=== PATIENT | female | born 1995 | race Caucasian/White ===

== ENCOUNTER 2017-10-25 17:04 | Emergency (ER) | payer OTHER, SELFPAY ==
--- NOTE | 2017-10-25 18:09 | EDPHYS ---
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 - Social history:: Smoking status: Patient uses tobacco products, smokes one-half pack cigarettes per day. Vital Signs: 17:23 BP 127 / 97; Pulse 113; Resp 20; Temp 98; Pulse Ox 100% on R/A; Weight 65.32 kg; Height hb 5 ft. 2 in. (157.48 cm); Pain 7/10; 18:49 BP 127 / 80; Pulse 76; Pulse Ox 100% on R/A; ap3 17:23 Body Mass Index 26.34 (65.32 kg, 157.48 cm) hb MDM: 18:08 Patient medically screened. kdr 10/25 18:05 Order name: Fluoresene Opth strip; Complete Time: 18:13 kdr Administered Medications: 18:25 Drug: Gentamicin Ointment 0.3 % 0.5 inches Route: Ophthalmic; Site: both eyes; ae1 Disposition: 10/25/17 18:08 Discharged to Home. Impression: Conjunctivitis. - Condition is Stable. - Discharge Instructions: Bacterial Conjunctivitis, Zhit-nx-Kuby. - Prescriptions for Gentamicin 0.3 % Ophthalmic Drops - instill 2 drops by OPHTHALMIC route every 4 hours Continue to administer drops until the signs and symptoms have resolved for 24 hours; 1 bottle. Tramadol 50 mg Oral Tablet - take 1 tablet by ORAL route every 8 hours as needed; 12 tablet. - Medication Reconciliation Form, Thank You Letter form. - Follow up: Private Physician; When: 2 - 3 days; Reason: If symptoms return, Further diagnostic work-up, Recheck today's complaints, Continuance of care, Re-evaluation by your physician. - Problem is new. - Symptoms are unchanged. Addendum: 11/04/2017 09:52 Addendum: CC: Swelling and itchy eyes for the last few days HPI: The patient states k dr that she has had diffuse swelling and itching to both eyes with some discharge and matting . Addendum: ROS: Const: No fever, chills or weight loss Eyes: no visual changes. She has had the itching, swelling and matting Neck: no pain or injury, CV: no CP or palpitations, Resp: no SOB, cough or congestion, Abd: no n/v/d or pain, Back: no pain or injury, : no pain or bleeding, MS/Ext: no pain, injury, swelling, tingling, Skin: no lacerations, pain, injury, skin turgor good, Neuro: CN grossly intact and no other deficits, Psych: Appropriate for age, Allergy/Immunology: no rashes or other s/s, Endo: no evidence of polyuria, polydipsia, temperature control or other s/s . Addendum: Exam: Const: WDWN WF in NAD, Head/Face: no injury, pain or deformity, Eyes: PERRLA, the sclera are mildly injected but there is currently no matting and no other apparent injury or swelling. ENT: no pain, injury or bleeding, Neck: no pain, injury or deformity, full ROM, Chest/Axilla: No pain, injury or deformity, CV: no rubs, gallops, murmurs, regular rate, Resp: CTAB, regular rate, Abd/GI: soft, NT, BS present in all quads and normal, Back: no injury or deformity, full ROM, MS/Extremity: no injury or deformity, FROM, distal pulses good and equal, Skin: no rashes, ecchymosis skin turgor good, Neuro: CN grossly intact, no other neuro deficits, Psych: appropriate for age, no SI/HI, no depression . Addendum: MDM (Discharge) All VS and nursing notes reviewed. The patient was counseled on the results and need for follow-up. The patient was discharged in stable condition. They were happy with the care they received and the plan for d/c and follow-up. . Signatures: Haseeb Arthur MD MD [facility] Beckie Diaz RN RN hb Chuck, Mehdi, RN RN ae1
--- NOTE | 2017-10-25 18:09 | ER ---
Nurse's Notes [facility] Name: Theresa Martinez Age: 21 yrs Sex: Female : 1995 Arrival Date: 10/25/2017 Time: 17:07 Bed 13 Private MD: Diagnosis: Conjunctivitis Presentation: 10/25 17:22 Presenting complaint: Patient states: Itching, redness, swelling, and pain to bilateral hb eyes x 2 days. Transition of care: patient was not received from another setting of care. Onset of symptoms was October 24, 2017. Care prior to arrival: None. 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 - Social history:: Smoking status: Patient uses tobacco products, smokes one-half pack cigarettes per day. Screenin:09 Abuse screen: Denies threats or abuse. Nutritional screening: No deficits noted. ap3 Tuberculosis screening: No symptoms or risk factors identified. Fall Risk None identified. Assessment: 18:06 General: Appears uncomfortable, Behavior is calm, cooperative. Pain: Complains of pain ap3 in right eye and left eye Pain does not radiate. Pain currently is 9 out of 10 on a pain scale. Pain began 2-3 days ago. Neuro: Level of Consciousness is awake, alert, obeys commands, Oriented to person, place, time, situation. Cardiovascular: Heart tones S1 S2 present Patient's skin is warm and dry. Respiratory: Airway is patent Breath sounds are clear bilaterally. GI: No signs and/or symptoms were reported involving the gastrointestinal system. : No signs and/or symptoms were reported regarding the genitourinary system. EENT: Eyes are tearing on inner aspect of conjuctiva of right eye and inner aspect of conjunctiva of left eye with exudate noted from inner aspect of conjunctiva of left eye abdi eyes red. Reports nasal congestion since 4 days ago. EENT: Reports. Derm: Skin is pink, warm \T\ dry. Musculoskeletal: No signs and/or symptoms reported regarding the musculoskeletal system. Vital Signs: 17:23 BP 127 / 97; Pulse 113; Resp 20; Temp 98; Pulse Ox 100% on R/A; Weight 65.32 kg; Height hb 5 ft. 2 in. (157.48 cm); Pain 7/10; 18:49 BP 127 / 80; Pulse 76; Pulse Ox 100% on R/A; ap3 17:23 Body Mass Index 26.34 (65.32 kg, 157.48 cm) hb ED Course: 17:07 Patient arrived in ED. rg4 17:23 Triage completed. hb 17:23 Haseeb Arthur MD is Attending Physician. kdr 17:23 Arm band placed on right wrist. hb 17:29 Mehdi Woods, RN is Primary Nurse. ae1 18:10 Bed in low position. Call light in reach. Side rails up X 1. Pulse ox on. NIBP on. ap3 18:26 Eye irrigation of both eyes flushed with 15mL sterile water in each eye. Patient ap3 tolerated well. 18:49 No provider procedures requiring assistance completed. ap3 18:50 Patient did not have IV access during this emergency room visit. ap3 Administered Medications: 18:25 Drug: Gentamicin Ointment 0.3 % 0.5 inches Route: Ophthalmic; Site: both eyes; ae1 Outcome: 18:08 Discharge ordered by . kdr 18:49 Discharged to home ambulatory, with significant other. ap3 18:49 Condition: stable 18:49 Discharge instructions given to patient, Instructed on discharge instructions, follow up and referral plans. medication usage, Demonstrated understanding of instructions, Prescriptions given X 2. 18:51 Attestation : I agree with the charting done by Chrissy Mojica, nursing staff development coordinator. . ae1 18:52 Patient left the ED. ae1 Signatures: Haseeb Arthur MD MD [facility] Beckie Diaz RN RN Mehdi Woods, RN RN ae1 Laverne Gatica [facility] Chrissy Mojica Girish
[2017-10-25] MEDS ORDERED: FLUORESCEIN SODIUM 0.6 MG/WRAP ONE (18:17)
[2017-10-25] MEDS ORDERED: TETRACAINE HCL 0.5% 2ML OPTH ONE (18:17)
[2017-10-25] MEDS ORDERED: GENTAMICIN 0.3% OPTH DROP 5ML ONE (18:22)
== END 2017-10-25 18:52 | disposition home or self-care (01) ==
LOC: ER 17:04
DX: H10.9 Unspecified conjunctivitis (principal); F17.210 Nicotine dependence, cigarettes, uncomplicated
CPT/HCPCS: 99284

== ENCOUNTER 2022-07-26 09:09 | Emergency (ER) | payer BC, OTHER ==
--- OUTSIDE RECORDS SUMMARY | 2022-07-26 09:13 | XMS REPORT | Continuity of Care Document ---
:1995 Author Organization [facility] t Address [address] [place] [address] Care Team Providers Name Role Phone 2, Adc Lab Attending Clinician Unavailable Du Romero MD Attending Clinician DU ROMERO Attending Clinician Unavailable Lab, Adc Fam Pob I Attending Clinician Unavailable Betsy Jacobo Attending Clinician BETSY COVARRUBIAS Attending Clinician Unavailable Payers Payer Name Policy Type Policy Number Effective Date Expiration Date Alysia negron [place] [employer] [id number] 2017 HEALTH 00:00:00 Problems Condition Condition Condition Status Onset Resolution Last Treating Co mments Source Name Details Category Date Date Treatment Clinician Date Screen for Screen for Disease Active U nivers STD STD 3-27 ity of ([place] dical d disease) d disease) Br anch BMI BMI Disease Active Univers 28.0-28.9, 28.0-28.9, 3-27 it y of adult adult 00:00: [place] 00 Medical Branch Family Family Disease Active Overview: Univer s history of history of 7-20 Paternal ity of MTHFR MTHFR 00:00: grandmoth [place] deficiency deficiency 00 er Me dical Branch No known No known Disease Unive rs active active ity of problems problems [facility] [place] [facility] Allergies, Adverse Reactions, Alerts Allergy Allergy Status Severity Reaction(s) Onset Inactive Treating Comm ents Source Name Type Date Date Clinician NO KNOWN Drug Active Univers ALLERGIE Class ity of S [facility] [place] [facility] Social History Social Habit Start Date Stop Date Quantity Comments Source History of 2017-09-21 Smoker University of tobacco use 00:00:00 [facility] [place] [facility] Exposure to Not sure University of SARS-CoV-2 [facility] (event) Branch Tobacco use and 2020-12-09 2020-12-09 Never used Universit y of exposure 00:00:00 00:00:00 [facility] [place] [facility] Alcohol intake 2020-12-09 2020-12-09 Current University of 00:00:00 00:00:00 non-drinker of [facility] alcohol Branch (finding) Tobacco Comment 2020-12-09 2020-12-09 quit Universit y of 00:00:00 00:00:00 [facility] [place] [facility] Sex Ass[birth year] At [birth year] Universit y of 00:00:00 00:00:00 [facility] [place] [facility] Smoking Status Start Date Stop Date Source Former smoker 2020-12-09 00:00:00 2020-12-09 00:00:00 [facility] [place] [facility] Current every day 2017-10-22 00:00:00 [facility] smoker [facility] Medications Ordered Filled Start Stop Current Ordering Indication Dosage Frequency Signature Comments Components Source Medication Medication Date Date Medication? Clinician (SIG) Name Name norgestimat Yes [id number] 1{tbl} Take 1 Univers e-ethinyl 7-06 tablet by ity o f estradiol 00:00: mouth [place] [facility] 0.18/0.215/ 0.25 mg-25 mcg tablet norgestimat 2020- No [id number] 1{tbl} Take 1 Univers e-ethinyl 7-06 05-14 tablet by ity of estradiol 00:00: 00:00 mouth [place] (ORTHO 00 :00 daily. [facility], 28,) 0.18/0.215/ 0.25 mg-25 mcg tablet norgestimat 2020- No [id number] 1{tbl} Take 1 Univers e-ethinyl 7-06 05-14 tablet by ity of estradiol 00:00: 00:00 mouth [place] (ORTHO 00 :00 [facility] 0.18/0.215/ 0.25 mg-25 mcg tablet norgestimat 2020- No [id number] 1{tbl} Take 1 Univers e-ethinyl 7-06 05-14 tablet by ity of estradiol 00:00: 00:00 mouth [place] (ORTHO 00 :00 daily. Medical [facility] LO, 28,) 0.18/0.215/ 0.25 mg-25 mcg tablet ibuprofen Yes 600mg Take 1 Unive rs 600 mg 2-12 tablet by ity of tablet 00:00: mouth [place] 00 every 6 Medical (six) Branch hours as needed for Pain (scale 1-3) or Pain (scale 4-6) (Pain). Take with food or milk. ibuprofen 2017-2020- No 600mg Take 1 Univ ers 600 mg 2-12 05-14 tablet by ity of tablet 00:00: 00:00 mouth [place] 00 :00 every 6 Medical (six) Branch hours as needed for Pain (scale 1-3) or Pain (scale 4-6) (Pain). Take with food or milk. ibuprofen 2020- No 600mg Take 1 Univ ers 600 mg 2-12 05-14 tablet by ity of tablet 00:00: 00:00 mouth [place] 00 :00 every 6 Medical (six) Branch hours as needed for Pain (scale 1-3) or Pain (scale 4-6) (Pain). Take with food or milk. ibuprofen 2017-2020- No 600mg Take 1 Univ ers 600 mg 2-12 05-14 tablet by ity of tablet 00:00: 00:00 mouth [place] 00 :00 every 6 Medical (six) Branch hours as needed for Pain (scale 1-3) or Pain (scale 4-6) (Pain). Take with food or milk. No known No Univers medications [facility] Immunizations Ordered Filled Immunization Date Status Comments [facility] e Immunization Name Name Varicella 2017-09-09 Completed [place] of (varivax)(chicken 00:00:00 [place] M edical pox) Branch Varicella 2017-09-09 Completed [facility] (varivax)(chicken 00:00:00 [place] M edical pox) Branch Varicella 2017-09-09 Completed [facility] (varivax)(chicken 00:00:00 [place] M edical pox) Branch Varicella 2017-09-09 Completed [facility] (varivax)(chicken 00:00:00 [place] M [place]ical pox) Branch Varicella 2017-09-09 Completed [facility] (varivax)(chicken 00:00:00 [place] M [place]ical pox) Branch Varicella 2017-09-09 Completed University of (varivax)(chicken 00:00:00 [place] M edical pox) Branch Varicella 2017-09-09 Completed University of (varivax)(chicken 00:00:00 [place] M edical pox) Branch Varicella 2017-09-09 Completed University of (varivax)(chicken 00:00:00 [place] M edical pox) Branch Varicella 2017-09-09 Completed University of (varivax)(chicken 00:00:00 [place] M edical pox) Branch Varicella 2017-09-09 Completed University of (varivax)(chicken 00:00:00 [place] edical pox) Branch TDAP 2017-07-03 Completed University of 00:00:00 [facility] 2017-07-03 Completed University of 00:00:00 [facility] 2017-07-03 Completed University of 00:00:00 [facility] 2017-07-03 Completed University of 00:00:00 [facility] 2017-07-03 Completed University of 00:00:00 [facility] [place] [facility] Vital Signs Vital Name Observation Time Observation Value Comments Source Systolic blood 2020-12-09 20:42:00 117 mm[Hg] Univer sity of pressure [facility] [place] [facility] Diastolic blood 2020-12-09 20:42:00 77 mm[Hg] Unive rsity of [facility] Heart rate 2020-12-09 20:42:00 84 /min [facility] Body temperature 2020-12-09 20:42:00 36.83 [facility] Respiratory rate 2020-12-09 20:42:00 18 /min [facility] Body height 2020-12-09 20:42:00 154.9 cm [facility] Body weight 2020-12-09 20:42:00 51.256 kg [facility] BMI 2020-12-09 20:42:00 21.35 kg/m2 [facility] Procedures Procedure Date / Time Performed Performing Clinician Cl e PAP SMEAR-LIQUID 2020-12-09 21:17:00 Du Romero [facility] Encounters Start End Encounter Admission Attending Care Care Encounter Source Date/Time Date/Time Type Type Clinicians Facility Department ID 2020-12-14 2020-12-14 Medical Office Administrator 2, Adc Lab [facility] [id number] Univers 15:30:22 15:45:22 Visit Du Romeroton [id number] ity bal[place]ina [place] [id number] [place] Profess[place] [phone] Ak dical nal [address] [facility] 2020-12-14 2020-12-14 Outpatient R [facility] [id number] Univers 15:30:00 15:30:00 [facility] 2020-12-09 2020-12-09 Office Ad, [facility] [id number] Univers 15:20:33 16:21:14 [facility] Du [facility] [id number] [phone] Ak dical nal 134 [facility] 2020-12-09 2020-12-09 Outpatient [facility] [id number] Univers 15:30:00 15:30:00 [facility] 2020-11-22 2020-11-22 Outpatient R [facility] [id number] Univers 15:30:00 15:30:00 [facility] 2020-04-10 2020-04-10 Laboratory Lab, [facility] Fam Pob I [facility] [id number] Univers 13:58:37 14:13:39 Only [facility]ish [id number] [id number] [place] as Professio [phone] Ak dical nal [address] [place] [address] 2020-04-10 2020-04-10 [facility] [id number] Univers 14:00:00 14:00:00 [facility] Results This patient has no known results.
--- NOTE | 2022-07-26 10:22 | RAD REPORT ---
EXAM DESCRIPTION: RAD - Chest Pa And Lat (2 Views) - 07/26/2022 10:13 am CLINICAL HISTORY: COUGH COMPARISON: No comparisons FINDINGS: Lines: None. Lungs: No evidence of edema or pneumonia. Pleural: No significant pleural effusions or pneumothorax. Cardiac: The heart size is within normal limits. Mediastinum: Within normal limits. Bones: No acute fractures. Other: None IMPRESSION: No acute cardiopulmonary disease.
[2022-07-26 10:32] LABS: Urine Blood Negative (Negative); Urine Glucose Negative (Negative); Urine Protein 1+ (Negative); Urine Specific Gravity >=1.030 (1.005-1.030); Urine pH 5.5 (5.0-7.0)
[2022-07-26 10:36] LABS: Urine Specific Gravity/Preg >1.030 (1.005-1.030)
[2022-07-26 10:43] LABS: Calcium Oxalate Crystals- Ur Few /HPF (None Seen); Urine Bacteria <20 /HPF (<20); Urine Mucus 4+ /HPF (None Seen); Urine RBC <5 /HPF (None Seen)
[2022-07-26 11:38] LABS: SARS-COV-2 RT PCR NEGATIVE (NEGATIVE)
--- NOTE | 2022-07-26 11:56 | ER ---
Nurse's Notes [facility] Name: Theresa Martinez Age: 26 yrs Sex: Female : 1995 Arrival Date: 07/26/2022 Time: 09:15 Bed DIS2 Private MD: Diagnosis: Cough;Acute pharyngitis, unspecified;UTI/ Urinary tract infection, site not specified Presentation: 07/26 10:21 Chief complaint: Patient states: COUGH, CONGESTION x4 DAYS. Coronavirus screen: bp congestion, cough unrelated to allergies, headache, Client presents with at least one sign or symptom that may indicate coronavirus-19. Standard/surgical mask placed on the client. Ebola Screen: No symptoms or risks identified at this time. Initial Sepsis Screen: Does the patient meet any 2 criteria? No. Patient's initial sepsis screen is negative. Does the patient have a suspected source of infection? No. Patient's initial sepsis screen is negative. Risk Assessment: Do you want to hurt yourself or someone else? Patient reports no desire to harm self or others. Onset of symptoms is unknown. 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 - Social history:: Smoking status: Reported history of juuling and/or vaping. Vital Signs: 10:21 BP 109 / 70; Pulse 75; Resp 18; Temp 98.0; Pulse Ox 100% ; Weight 46.72 kg; Height 5 bp ft. 2 in. (157.48 cm); 10:21 Body Mass Index 18.84 (46.72 kg, 157.48 cm) bp ED Course: 09:15 Patient arrived in ED. am2 09:17 Lm Cote PA is PHCP. cp 09:17 Makenzie Jain MD is Attending Physician. cp 10:15 XRAY Chest Pa And Lat (2 Views) In Process Unspecified. EDMS 10:22 Triage completed. bp 10:22 Arm band placed on. bp 12:20 No provider procedures requiring assistance completed. Patient did not have IV access ss during this emergency room visit. Patient maintains SpO2 saturation greater than 95% on room air. Administered Medications: No medications were administered Outcome: 11:55 Discharge ordered by . zhen 12:20 Discharged to home ambulatory. ss 12:20 Condition: good 12:20 Discharge instructions given to patient, Instructed on discharge instructions, follow up and referral plans. medication usage, Demonstrated understanding of instructions, follow-up care, medications. 12:21 Patient left the ED. ss Signatures: Dispatcher [employer] EDMT Velvet Hall RN RN ss Lm Cote PA PA cp Moreno, Amanda am2 Jac Hargrove, RN RN bp
--- NOTE | 2022-07-26 11:56 | EDPHYS ---
Physician Documentation [facility] Name: Theresa Martinez Age: 26 yrs Sex: Female : 1995 Arrival Date: 07/26/2022 Time: 09:15 Bed DIS2 Private MD: ED Physician Makenzie Jain HPI: 07/26 10:10 This 26 yrs old Female presents to ER via Ambulatory with complaints of Cough, Chest cp Pressure, General Weakness. 10:10 The patient or guardian reports cough, that is intermittent, with no sputum. Onset: The cp symptoms/episode began/occurred 4 day(s) ago. 10:10 Severity of symptoms: in the emergency department the symptoms are unchanged, despite cp home interventions. 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 - Social history:: Smoking status: Reported history of juuling and/or vaping. ROS: 10:15 Constitutional: Positive for chills, Negative for body aches, fever, poor PO intake. cp 10:15 Eyes: Negative for injury, pain, redness, and discharge. cp 10:15 ENT: Positive for rhinorrhea, sore throat, Negative for drainage from ear(s), ear pain, difficulty swallowing, difficulty handling secretions. 10:15 Cardiovascular: Positive for chest pain, with cough. 10:15 Respiratory: Positive for cough, "sounds productive", shortness of breath, Negative for wheezing. 10:15 Abdomen/GI: Negative for abdominal pain, vomiting, diarrhea, constipation. 10:15 Skin: Negative for rash. 10:15 Neuro: Positive for weakness, Negative for altered mental status, headache. 10:15 All other systems are negative. Exam: 10:20 Constitutional: The patient appears in no acute distress, alert, awake, non-toxic, well cp developed, well nourished. 10:20 Head/Face: Normocephalic, atraumatic. cp 10:20 Eyes: Periorbital structures: appear normal, Conjunctiva: normal, no exudate, no injection, Lids and lashes: appear normal, bilaterally. 10:20 ENT: External ear(s): are unremarkable, Nose: is normal, Mouth: Lips: moist, Oral mucosa: moist, Posterior pharynx: Airway: no evidence of obstruction, patent, Tonsils: with erythema, no enlargement, no exudate, swelling, is not appreciated, erythema, that is moderate, exudate, is not appreciated. 10:20 Neck: ROM/movement: is normal, is supple, without pain, no range of motions limitations, no meningismus, Lymph nodes: no appreciated lymphadenopathy. 10:20 Chest/axilla: Inspection: normal. 10:20 Cardiovascular: Rate: normal, Rhythm: regular. 10:20 Respiratory: the patient does not display signs of respiratory distress, Respirations: normal, no use of accessory muscles, no retractions, labored breathing, is not present, Breath sounds: are clear throughout, no decreased breath sounds, no stridor, no wheezing. 10:20 Abdomen/GI: Exam negative for discomfort, distension, guarding, Inspection: abdomen appears normal. 10:20 Back: pain, is absent, ROM is normal. Vital Signs: 10:21 BP 109 / 70; Pulse 75; Resp 18; Temp 98.0; Pulse Ox 100% ; Weight 46.72 kg; Height 5 bp ft. 2 in. (157.48 cm); 10:21 Body Mass Index 18.84 (46.72 kg, 157.48 cm) bp MDM: 10:38 Patient medically screened. cp 11:55 Data reviewed: vital signs, nurses notes, lab test result(s), radiologic studies, plain cp films. 11:55 Test interpretation: by ED physician or midlevel provider: plain radiologic studies. cp Counseling: I had a detailed discussion with the patient and/or guardian regarding: the historical points, exam findings, and any diagnostic results supporting the discharge/admit diagnosis, lab results, radiology results, to return to the emergency department if symptoms worsen or persist or if there are any questions or concerns that arise at home. 07/26 10:04 Order name: COVID-19/FLU A+B/RSV; Complete Time: 11:42 cp 07/26 10:04 Order name: Strep; Complete Time: 11:32 cp 07/26 11:32 Interpretation: Reviewed. 07/26 10:04 Order name: Urine Microscopic Only; Complete Time: 11:12 cp 12/29 11:12 Interpretation: Normal except: MUCUS 4+. 07/26 10:32 Order name: Urine --Ancillary (enter results) kj1 07/26 10:32 Order name: Urine Dipstick-Ancillary; Complete Time: 11:12 EDPA 07/26 11:12 Interpretation: Normal except: UKET Trace; UPROT 1+; UNIT Positive. 07/26 11:15 Order name: Throat Culture EDPA 07/26 10:04 Order name: XRAY Chest Pa And Lat (2 Views); Complete Time: 11:12 cp 07/26 11:12 Interpretation: Report reviewed. 07/26 10:04 Order name: Urine Dipstick-Ancillary (obtain specimen); Complete Time: 11:06 cp Administered Medications: No medications were administered Disposition Summary: 07/26/22 11:55 Discharge Ordered Location: Home cp Problem: new cp Symptoms: have improved cp Condition: Stable cp Diagnosis - Cough cp - Acute pharyngitis, unspecified cp - UTI/ Urinary tract infection, site not specified cp Followup: cp - With: Private Physician - When: 2 - 3 days - Reason: Worsening of condition Discharge Instructions: - Discharge Summary Sheet cp - Pharyngitis cp - Urinary Tract Infection, Adult cp - Cough, Adult cp Forms: - Medication Reconciliation Form cp - Thank You Letter cp - Antibiotic Education cp - Prescription Opioid Use cp - Work release form cp Prescriptions: - Bromfed DM 2-30-10 mg/5 mL Oral syrup - take 10 milliliter by ORAL route every 6 hours; 180 milliliter; Refills: 0, cp Product Selection Permitted - Cephalexin 500 mg Oral Capsule - take 1 capsule by ORAL route every 12 hours for 7 days; 14 capsule; Refills: 0, cp Product Selection Permitted - Ibuprofen 800 mg Oral Tablet - take 0.5 tablet by ORAL route every 8 hours As needed take with food; 30 cp tablet; Refills: 0, Product Selection Permitted Addendum: 07/30/2022 17:35 STAFF ATTESTATION STATEMENT: I was immediately available onsite in the emergency s d2 department for consultation in the care of this patient. I did not see or examine this patient. Makenzie Jain MD. Signatures: Dispatcher [employer] EDPA Lm Cote PA PA cp Peltier, Brian, LUANN RN bp Makenzie Jain MD MD sd2
[2022-07-26 12:28] VITALS: BP 109/70; TEMP 98; O2SAT 100
== END 2022-07-26 12:21 | disposition home or self-care (01) ==
LOC: ER 09:09
DX: R05.9 Cough, unspecified (principal); J02.9 Acute pharyngitis, unspecified; N39.0 Urinary tract infection, site not specified; Z20.822 Contact with and (suspected) exposure to COVID-19
CPT/HCPCS: 87070; 81025; 87081; 0241U; 71046; 99284; 81003; 81015

== ENCOUNTER 2023-05-18 01:13 | Emergency (ER) | payer BC, OTHER, SELFPAY ==
--- OUTSIDE RECORDS SUMMARY | 2023-05-18 01:17 | XMS REPORT | Continuity of Care Document ---
:[address] [facility] t Address [address] [place] [address] [address] [place] [address] Care Team Providers Name Role Phone REGINALDO HORN Primary Care Physician Unavailable AVA KRISHNA Attending Clinician Unavailable Ava Abdul Attending Clinician [phone] Lab, Ang-Rmchp Attending Clinician Unavailable MELISSA SUAREZ Attending Clinician Unavailable Jing eHbert Attending Clinician Melissa Suarez MD Attending Clinician Doctor Unassigned, [place] Attending Clinician Unavailable 2, Adc Lab Attending Clinician Unavailable Tammy Romero MD Attending Clinician TAMMY ROMERO Attending Clinician Unavailable Lab, Adc Fam Pob I Attending Clinician Unavailable Sharla Jacobo Attending Clinician SHARLA COVARRUBIAS Attending Clinician Unavailable MELISSA SUAREZ Admitting Clinician Unavailable Payers Payer Name Policy Type Policy Number Effective Date Expiration Date S jamil [place] OF [place] [id number] 2023 00:00:00 [place] [facility] [id number] 2017 HEALTH 00:00:00 Problems Condition Condition Condition Status Onset Resolution Last Treating Co mments Source Name Details Category Date Date Treatment Clinician Date Abnormal Abnormal Disease Active Overview: Un pamela maternal maternal 04-24 Formattin ity of glucose glucose 00:00: g of this [place] tolerance, tolerance, 00 note Me dical antepartum antepartum might be Branch different from the original. Unable to complete lab (veins roll), will check blood glucose x2 wks and follow up Pending 3hr, repeat at 26-28wks Multiparit Multiparit Disease Active U nivers y y 04-23 ity of 00:00: [place] 00 [facility] Supervisio Supervisio Disease Active U nivers n of n of 04-23 ity of high-risk high-risk 00:[place] [facility] Screen for Screen for Disease Active U nivers STD STD 10-22 ity of (sexually (sexually 00:[place] transmitte transmitte 00 Me dical d disease) d disease) Br anch BMI BMI Disease Active Univers 28.0-28.9, 28.0-28.9, 10-22 it y of adult adult 00:00: [address] Family Family Disease Active Overview: Univer s history of history of 7-20 Paternal ity of MTHFR MTHFR 00:00: grandmoth [place] deficiency deficiency 00 er Me dical Branch No known No known Disease Unive rs active active ity of problems problems [facility] Allergies, Adverse Reactions, Alerts Allergy Allergy Status Severity Reaction(s) Onset Inactive Treating Comm ents Source Name Type Date Date Clinician NO KNOWN Drug Active Univers ALLERGIE Class ity of S [facility] Social History Social Habit Start Date Stop Date Quantity Comments Source ASSERTION 2023-03-27 University of 00:00:00 [facility] History of tobacco 2017-09-21 Cigarette Smoker University of use 00:00:00 [facility] Sexual orientation Univer sity of [facility] Exposure to Not sure University of SARS-CoV-2 (event) [facility] History of Social 2023-04-24 2023-04-24 Univers ity of function 00:00:00 00:00:00 [facility] Alcohol intake 2023-04-24 2023-04-24 Current University of 00:00:00 00:00:00 non-drinker of [place] Medi fausto alcohol Branch (finding) Tobacco use and 2020-12-09 2020-12-09 Smokeless Universit y of exposure 00:00:00 00:00:00 tobacco non-user [facility] dical [place] Tobacco Comment 2020-12-09 2020-12-09 quit Universit y of 00:00:00 00:00:00 [facility] Sex Assigned At [birth year] Universit y of 00:00:00 00:00:00 [facility] Smoking Status Start Date Stop Date Source Ex-smoker 2020-12-09 00:00:00 2020-12-09 00:00:00 Universi ty of [facility] Current every day 2017-10-22 00:00:00 [facility] smoker Medical Branch Medications Ordered Filled Start Stop Current Ordering Indication Dosage Frequency Signature Comments Components Source Medication Medication Date Date Medication? Clinician (SIG) Name Name Blood-Gluco 2022-07 Yes [id number] Check Univers se Meter 0-05 blood ity of (FREESTYLE 00:00: glucose 4x [place] LITE METER) 00 daily Medical Kit Branch lancets 2022-07 Yes [id number] Check Univ ers (FREESTYLE 0-05 glucose 4x ity of LANCETS) 28 00:00: daily [place] gauge Misc Medical Branch blood sugar 2022-07 Yes [id number] Check Univers diagnostic 0-05 blood ity of (FREESTYLE 00:00: glucose 4x [place] LITE 00 daily Medical STRIPS) Branch strip Blood-Gluco 2022-07 Yes [id number] Check Univers se Meter 0-05 blood ity of (FREESTYLE 00:00: glucose 4x [place] LITE METER) 00 daily Medical Kit Branch lancets 2022-07 Yes [id number] Check Univ ers (FREESTYLE 0-05 glucose 4x ity of LANCETS) 28 00:00: daily [place] gauge Misc 00 Medical Branch blood sugar 2022-07 Yes [id number] Check Univers diagnostic 0-05 blood ity of (FREESTYLE 00:00: glucose 4x [place] LITE 00 daily Medical STRIPS) Branch strip Blood-Gluco 2022-07 Yes [id number] Check Univers se Meter 0-05 blood ity of (FREESTYLE 00:00: glucose 4x [place] LITE METER) 00 daily Medical Kit Branch lancets 2022-07 Yes [id number] Check Univ ers (FREESTYLE 0-05 glucose 4x ity of LANCETS) 28 00:00: daily [place] [facility] Medical Branch blood sugar 2022-07 Yes [id number] Check Univers diagnostic 0-05 blood ity of (FREESTYLE 00:00: glucose 4x [place] LITE 00 daily Medical STRIPS) Branch strip Blood-Gluco 2022-07 Yes [id number] Check Univers se Meter 0-05 blood ity of (FREESTYLE 00:00: glucose 4x [place] LITE METER) 00 daily Medical Kit Branch lancets 2022-07 Yes [id number] Check Univ ers (FREESTYLE 0-05 glucose 4x ity of LANCETS) 28 00:00: daily [facility] Medical Branch blood sugar 2022-07 Yes [id number] Check Univers diagnostic 0-05 blood ity of (FREESTYLE 00:00: glucose 4x [place] LITE 00 daily Medical STRIPS) Branch strip Yes [id number] 1{tbl} Take 1 U nivers xbn13-cdmr- 9-26 tablet by ity of folic acid 00:00: mouth in [place] 29 mg iron- 00 the Medical 1 mg per morning. Branch tablet Yes [id number] 1{tbl} Take 1 U nivers wrm89-ujae- 9-26 tablet by ity of folic acid 00:00: mouth in [place] as 29 mg iron- 00 the Medical 1 mg per morning. Branch tablet Yes [id number] 1{tbl} Take 1 U nivers kub78-fzjz- 9-26 tablet by ity of folic acid 00:00: mouth in [place] as 29 mg iron- 00 the Medical 1 mg per morning. Branch tablet Yes [id number] 1{tbl} Take 1 U nivers tgw75-dmmv- 9-26 tablet by ity of folic acid 00:00: mouth in [place] 29 mg iron- 00 the Medical 1 mg per morning. Branch tablet Yes [id number] 1{tbl} Take 1 U nivers auf47-jubs- 9-26 tablet by ity of folic acid 00:00: mouth in [place] 29 mg iron- 00 the Medical 1 mg per morning. Branch tablet Yes [id number] 1{tbl} Take 1 U nivers ldm67-fzaw- 9-26 tablet by ity of folic acid 00:00: mouth in [place] as 29 mg iron- 00 the Medical 1 mg per morning. Branch tablet Yes [id number] 1{tbl} Take 1 U nivers whh62-pzfx- 9-26 tablet by ity of folic acid 00:00: mouth in [place] as 29 mg iron- 00 the Medical 1 mg per morning. Branch tablet Yes [id number] 1{tbl} Take 1 U nivers noe25-ltts- 9-26 tablet by ity of folic acid 00:00: mouth in [place] as 29 mg iron- 00 the Medical 1 mg per morning. Branch tablet Yes [id number] 1{tbl} Take 1 U nivers ssr40-jgbb- 9-26 tablet by ity of folic acid 00:00: mouth in [place] as 29 mg iron- 00 the Medical 1 mg per morning. Branch tablet Yes [id number] 1{tbl} Take 1 U nivers yjs28-sdwk- 9-26 tablet by ity of folic acid 00:00: mouth in [place] as 29 mg iron- 00 the Medical 1 mg per morning. Branch tablet Yes [id number] 1{tbl} Take 1 U nivers qok53-gjop- 9-26 tablet by ity of folic acid 00:00: mouth in [place] as 29 mg iron- 00 the Medical 1 mg per morning. Branch tablet Yes [id number] 1{tbl} Take 1 U nivers gfm57-mavm- 9-26 tablet by ity of folic acid 00:00: mouth in [place] as 29 mg iron- 00 the Medical 1 mg per morning. Branch tablet Yes [id number] 1{tbl} Take 1 U nivers gmw76-xwav- 9-26 tablet by ity of folic acid 00:00: mouth in [place] as 29 mg iron- 00 the Medical 1 mg per morning. Branch tablet Yes [id number] 1{tbl} Take 1 U nivers bcg29-xwxr- 9-26 tablet by ity of folic acid 00:00: mouth in [place] as 29 mg iron- 00 the Medical 1 mg per morning. Branch tablet norgestimat Yes [id number] 1{tbl} Take 1 Univers e-ethinyl 7-06 tablet by ity o f estradiol 00:00: mouth [place] (ORTHO 00 [facility]. [facility] 0.18/0.215/ 0.25 mg-25 mcg tablet norgestimat 2020- No [id number] 1{tbl} Take 1 Univers e-ethinyl 7-06 05-14 tablet by ity of estradiol 00:00: 00:00 mouth [place] (ORTHO 00 :00 daily. [facility], 28,) 0.18/0.215/ 0.25 mg-25 mcg tablet norgestimat 2020- No [id number] 1{tbl} Take 1 Univers e-ethinyl 7-06 05-14 tablet by ity of estradiol 00:00: 00:00 mouth [place] (ORTHO 00 :00 daily. [facility], ,) 0.18/0.215/ 0.25 mg-25 mcg tablet norgestimat 2020- No [id number] 1{tbl} Take 1 Univers e-ethinyl 7-06 05-14 tablet by ity of estradiol 00:00: 00:00 mouth [place] (ORTHO 00 :00 daily. [facility], ,) 0.18/0.215/ 0.25 mg-25 mcg tablet ibuprofen Yes 600mg Take 1 Unive rs 600 mg 2-12 tablet by ity of tablet 00:00: mouth [place] 00 every 6 Medical (six) Branch hours as needed for Pain (scale 1-3) or Pain (scale 4-6) (Pain). Take with food or milk. ibuprofen No 600mg Take 1 Univ ers 600 [...] (Pain). Take with food or milk. ibuprofen 600mg Take 1 Univ ers 600 mg 09-09-14 tablet by ity of tablet 00:00: 00:00 mouth [place] 00 :00 every 6 Medical (six) Branch hours as needed for Pain (scale 1-3) or Pain (scale 4-6) (Pain). Take with food or milk. No known No Univers medications [facility] Immunizations Ordered Filled Date Status Comments Source Immunization Name Immunization Name Varicella 2017-09-09 Completed University of (varivax)(chicken 00:00:00 [...] (varivax)(chicken 00:00:00 [place] M edical pox) Branch TDAP 2017-07-03 Completed University of 00:00:00 [facility] TDAP 2017-07-03 Completed University of 00:00:00 [facility] TDAP 2017-07-03 Completed University of 00:00:00 [facility] TDAP 2017-07-03 Completed University of 00:00:00 [facility] TDAP 2017-07-03 Completed University of 00:00:00 [facility] TDAP Unknown Completed [facility] Varicella Unknown Completed University of (varivax)(chicken [place] M edical pox) Branch Varicella Unknown Completed University of (varivax)(chicken [place] M [place]ical pox) Branch TDAP Unknown Completed [facility] Varicella Unknown Completed University of (varivax)(chicken [place] M [place]ical pox) Branch Varicella Unknown Completed University of (varivax)(chicken [place] M [place]ical pox) Branch TDAP Unknown Completed [facility] Varicella Unknown Completed University of (varivax)(chicken [place] M [place]ical pox) Branch Varicella Unknown Completed University of (varivax)(chicken [place] M [place]ical pox) Branch TDAP Unknown Completed [facility] Varicella Unknown Completed University of (varivax)(chicken [place] M [place]ical pox) Branch Varicella Unknown Completed University of (varivax)(chicken [place] M [place]ical pox) Branch TDAP Unknown Completed [facility] Varicella Unknown Completed University of (varivax)(chicken [place] M [place]ical pox) Branch Varicella Unknown Completed University of (varivax)(chicken [place] M [place]ical pox) Branch TDAP Unknown Completed [facility] Varicella Unknown Completed University of (varivax)(chicken [place] M [place]ical pox) Branch Varicella Unknown Completed University of (varivax)(chicken [place] M [place]ical pox) Branch TDAP Unknown Completed [facility] Varicella Unknown Completed University of (varivax)(chicken [place] M [place]ical pox) Branch Varicella Unknown Completed University of (varivax)(chicken [place] M [place]ical pox) Branch TDAP Unknown Completed [facility] Varicella Unknown Completed University of (varivax)(chicken [place] M [place]ical pox) Branch Varicella Unknown Completed University of (varivax)(chicken [place] M [place]ical pox) Branch TDAP Unknown Completed [facility] Varicella Unknown Completed University of (varivax)(chicken [place] M [place]ical pox) Branch Varicella Unknown Completed University of (varivax)(chicken [place] M [place]ical pox) Branch TDAP Unknown Completed [facility] Varicella Unknown Completed University of (varivax)(chicken [place] M [place]ical pox) Branch Varicella Unknown Completed University of (varivax)(chicken [place] M [place]ical pox) Branch TDAP Unknown Completed [facility] Varicella Unknown Completed University of (varivax)(chicken [place] M [place]ical pox) Branch Varicella Unknown Completed University of (varivax)(chicken [place] M [place]ical pox) Branch TDAP Unknown Completed [facility] Varicella Unknown Completed University of (varivax)(chicken [place] M [place]ical pox) Branch Varicella Unknown Completed University of (varivax)(chicken [place] M [place]ical pox) Branch TDAP Unknown Completed [facility] Varicella Unknown Completed University of (varivax)(chicken [place] M [place]ical pox) Branch Varicella Unknown Completed University of (varivax)(chicken [place] M [place]ical pox) Branch TDAP Unknown Completed [facility] Varicella Unknown Completed University of (varivax)(chicken [place] M [place]ical pox) Branch Varicella Unknown Completed University of (varivax)(chicken [place] M [place]ical pox) Branch TDAP Unknown Completed [facility] Varicella Unknown Completed University of (varivax)(chicken [place] M [place]ical pox) Branch Varicella Unknown Completed University of (varivax)(chicken [place] M edical pox) Branch Vital Signs Vital Name Observation Time Observation Value Comments Source Heart rate 2023-04-25 03:00:00 79 /min [facility] Oxygen saturation in 2023-04-25 03:00:00 100 /min [facility] Arterial blood by [facility] Pulse oximetry Branch Systolic blood 2023-04-25 01:45:00 108 mm[Hg] [facility] Diastolic blood 2023-04-25 01:45:00 74 mm[Hg] [facility] Respiratory rate 2023-04-25 01:45:00 16 /min [facility] Body temperature 2023-04-25 00:05:00 37.22 [facility] Body height 2023-04-25 00:05:00 157.5 cm [facility] Body weight 2023-04-25 00:05:00 47.673 kg [facility] BMI 2023-04-25 00:05:00 19.22 kg/m2 [facility] Systolic blood 2023-04-23 14:14:00 115 mm[Hg] Univer sity [facility] Diastolic blood 2023-04-23 14:14:00 74 mm[Hg] Unive rsity of [facility] Heart rate 2023-04-23 14:14:00 63 /min Universi ty of [facility] Body temperature 2023-04-23 14:14:00 36.89 [place] Univ ersity of [facility] [place] Branch Respiratory rate 2023-04-23 14:14:00 18 /min Univ ersity of [facility] Body height 2023-04-23 14:14:00 154.9 cm Universi ty of [place] [facility] [place] Body weight 2023-04-23 14:14:00 48.353 kg Universi ty of [facility] [place] Branch BMI 2023-04-23 14:14:00 20.14 kg/m2 Universi ty of [facility] Systolic blood 2020-12-09 20:42:00 117 mm[Hg] Univer sity of [facility] Diastolic blood 2020-12-09 20:42:00 77 mm[Hg] Unive rsity of [facility] Heart rate 2020-12-09 20:42:00 84 /min Universi ty of [facility] Body temperature 2020-12-09 20:42:00 36.83 [facility] Respiratory rate 2020-12-09 20:42:00 18 /min [facility] Body height 2020-12-09 20:42:00 154.9 cm Universi ty of [facility] Body weight 2020-12-09 20:42:[address] [facility] BMI 2020-12-09 20:42:00 21.35 kg/m2 Universi ty [facility] Procedures Procedure Date / Time Performing Clinician Source Performed US FIRST 2023-04-25 02:35:00 Melissa Suarez [facility] TRIMESTER LESS THAN 14 Medical B ranch WEEKS WITH TRANSVAGINAL POCT TEST 2023-04-25 00:44:00 Jing Flores [facility] BASIC METABOLIC PANEL 2023-04-25 00:40:00 Melissa Suarez [facility] (NA, K, CL, CO2, Medical Branch GLUCOSE, BUN, CREATININE, CA) TOTAL BETA HCG ASSAY 2023-04-25 00:40:00 Jing Flores [facility] CBC WITH DIFF 2023-04-25 00:40:00 Jing Flores [facility] URINALYSIS 2023-04-25 00:40:00 Jing Flores [facility] CONSENT/REFUSAL FOR 2023-04-24 23:59:01 Doctor Unassigned, No Un [facility] DIAGNOSIS AND TREATMENT [facility] GLUCOSE 1 HOUR POST 2023-04-23 15:28:00 [facility] CBC WITH DIFF 2023-04-23 15:28:00 Ava Krishna [facility] HEPATITIS B SURFACE 2023-04-23 15:28:00 Ava Krishna [facility] ANTIGEN [facility] HB INDIRECT 2023-04-23 15:28:00 Ava Krishna [facility] ANTIGLOBULIN TEST [facility] HIV 1/2 AG-AB WITH 2023-04-23 15:28:00 Ava Krishna [facility] REFLEX [facility] SYPHILIS IGG/IGM 2023-04-23 15:28:00 Ava Krishna [facility] POCT TEST 2023-04-23 14:02:00 Ava Krishna [facility] POCT URINALYSIS W/O 2023-04-23 14:02:00 Ava Krishna [facility] SPECIFIC [facility] ASSIGNMENT OF BENEFITS 2023-04-23 12:57:20 Doctor Unassigned, No [facility] PAP SMEAR-LIQUID 2020-12-09 21:17:00 Tammy Romero [facility] Encounters Start End Encounter Admission Attending Care Care Encounter Source Date/Time Date/Time Type Type Clinicians Facility Department ID 2023-05-21 2023-05-21 Outpatient P PASQUALE KRISHNA RUST [id number] Univers 11:00:00 11:00:00 AVA banks f [facility] 2023-05-03 2023-05-03 Telephone PASQUALE Krishna [id number] Univers 00:00:00 00:00:00 Ava C OFFICE SERVICES CLERK [id number] ity of REGIONAL [id number] [place] as MATERNAL [id number] [facility] CHILD [address] [place] [address] 2023-05-03 2023-05-03 Telephone [facility] [id number] Univers 00:00:00 00:00:00 Ava C OFFICE SERVICES CLERK [id number] ity of REGIONAL [id number] [place] as MATERNAL [phone] [facility] & [address] 2023-05-02 2023-05-02 [facility] [id number] Univers 07:45:00 08:12:40 AVA mora o f [facility] 2023-05-02 2023-05-02 [facility], [facility] 1.2.840. [id number] Univers 07:45:00 08:12:40 Visit Ava Krishna OFFICE SERVICES CLERK [id number] ity of [facility] [id number] [place] as MATERNAL [id number] [address] 2023-05-02 2023-05-02 Telephone [facility] [id number] Univers 00:00:00 00:00:00 Ava C OFFICE SERVICES CLERK [id number] ity of REGIONAL [id number] [place] as MATERNAL [id number] [facility] & [address] 2023-04-24 2023-04-24 Emergency X DANIELA RUST ERT [id number] Univers 19:09:00 22:45:[address] [facility] 2023-04-24 2023-04-24 Emergency Jing Flores [facility] 1.2.840 .[id number] Univers 19:09:00 22:45:00 Melissa Suarez [place] [id number] ity [facility] [id number] [place] [id number] [facility] [address] [place] 2023-04-24 2023-04-24 Telephone [facility] [id number] Univers 00:00:00 00:00:00 Ava C OFFICE SERVICES CLERK [id number] ity of [facility] [id number] [place] as MATERNAL [id number] [facility] & CHILD [address] [place] [address] 2023-04-24 2023-04-24 Telephone [facility] [id number] Univers 00:00:00 00:00:00 Ava C OFFICE SERVICES CLERK [id number] ity of [facility] [id number] [place] as MATERNAL [id number] [facility] & [address] 2023-04-23 2023-04-23 Initial [facility] [id number] Univers 08:30:00 10:08:18 Ava C OFFICE SERVICES CLERK [id number] ity of Visit [facility] [id number] [place] as MATERNAL [id number] [address] 2023-04-23 2023-04-23 [facility] [id number] Univers 08:00:00 08:57:31 AVA mora o f [facility] 2023-04-23 2023-04-23 Orders Doctor YAMILET [id number] Univers 00:00:00 00:00:00 Only Unassigned, HERMANN [id number] ity of [place] [facility] [id number] [place] as [id number] [facility] 009 Branch 2020-12-14 2020-12-14 [employer] 2, Adc Lab [facility] [id number] Univers 15:30:22 15:45:22 Visit Tammy Romero [id number] ity of [employer] [id number] [place] [address] [facility] [id number] [facility] [address] [facility] 2020-12-14 2020-12-14 Outpatient R [facility] [id number] Univers 15:30:00 15:30:00 [facility] 2020-12-09 2020-12-09 Office Ad, [facility] [id number] Univers 15:20:33 16:21:14 Visit Tammy Mara [place] [id number] [facility] [employer] [id number] Michelleio [id number] [facility] [address] [facility] 2020-12-09 2020-12-09 Outpatient R [facility] [id number] Univers 15:30:00 15:30:00 [facility] 2020-11-22 2020-11-22 Outpatient R [facility] [id number] Univers 15:30:00 15:30:00 [facility] 2020-04-10 2020-04-10 Laboratory Lab, Adc Fam Pob I RUST 1.2. [id number] Univers 13:58:37 14:13:39 Only Satish [facility] [id number] ity [facility] [id number] [place] as Professio [id number] [facility] [address] [place] [address] 2020-04-10 2020-04-10 [facility] [id number] Univers 14:00:00 14:00:00 [facility] Results Test Description Test Time Test Comments Results Result Comments Source [facility] 2023-04-25 01:53:41 Test Item Value Reference Range Interpretation Comme nts BETA HCG (test code = 78223.00 See_Comment [Auto mated message] The [id number]) system which ge nerated this result transmit ramos reference range : Non- fe male and male patients: <5 mIU/mL. The reference r aditi was not used to interpr et this result as ander l/abnormal. BRENDAN (test code = BRENDAN) Gestational Age ?Range (mIU/mL) 1-10 ?Weeks ?[id number] Weeks ?[id number] Weeks ?7700-76042196-62 Weeks ?[id number] Biotin has been reported to cause a negative bias, interpret results relative to patient's use of biotin. [facility] WITH [id number] 01:47:15 Test Item Value Reference Range Interpretation Comments WBC (test code = 9.34 See_Comment [Automated 1390-2) message] The sy stem which generated this result transmitted reference range : 4.30 - 11.10 10*3/?L. The reference range was not used to interpret this result as normal/abnormal . RBC (test code = 4.78 See_Comment [Automated 789-8) message] The sy stem which generated this result transmitted reference range : 3.93 - 5.25 10*6/?L. The reference range was not used to interpret this result as normal/abnormal . HGB (test code = 15.1 g/dL 11.6-15.0 H 718-7) HCT (test code = 43.3 % 35.7-45.2 4544-3) MCV (test code = 90.6 fL 80.6-95.5 787-2) MCH (test code = 31.6 pg 25.9-32.8 785-6) MCHC (test code = 34.9 g/dL 31.6-35.1 786-4) RDW-SD (test code = 41.1 fL 39.0-49.9 94583-3) RDW-CV (test code = 12.5 % 12.0-15.5 788-0) PLT (test code = 371 See_Comment H [Automated 777-3) message] The sy stem which generated this result transmitted reference range : 166 - 358 10*3/ ?L. The reference r aditi was not used to interpret this result as normal/abnormal . MPV (test code = 9.2 fL 9.5-12.9 L 05064-7) NRBC/100 WBC (test 0.0 See_Comment [Automat ed code = 8762409644) message] The system which generated this result transmitted reference range : 0.0 - 10.0 /100 WBCs. The refer ence range was not u sed to interpret th is result as normal/abnormal . NRBC x10^3 (test code See_Comment [Auto mated = [id number]) message] The s ystem which generated this result transmitted reference range : 10*3/?L. The reference range was not used to interpret this result as normal/abnormal . GRAN MAT (NEUT) % 48.8 % (test code = 770-8) IMM GRAN % (test code 0.20 % = 2293214921) LYMPH % (test code = 43.9 % 736-9) MONO % (test code = 6.0 % 5905-5) EOS % (test code = 0.6 % 713-8) BASO % (test code = 0.5 % 706-2) GRAN MAT x10^3(ANC) 4.55 10*3/uL 1.88-7.09 (test code = 0106442344) IMM GRAN x10^3 (test 0.00-0.06 code = 3209702079) LYMPH x10^3 (test code 4.10 10*3/uL 1.32-3.29 H = 731-0) MONO x10^3 (test code 0.56 10*3/uL 0.33-0.92 = 742-7) EOS x10^3 (test code = 0.06 10*3/uL 0.03-0.39 711-2) BASO x10^3 (test code 0.05 10*3/uL 0.01-0.07 = 704-7) Lab Interpretation Abnormal (test code = 24384-8) [facility] METABOLIC PANEL (NA, K, CL, CO2, GLUCOSE, BUN, CREATININE, CA)2023-04-25 01:11:25 Test Item Value Reference Range Interpretation Comments NA (test code = 140 mmol/L 135-145 3078841432) K (test code = 3.9 mmol/L 3.5-5.0 5082897318) CL (test code = 103 mmol/L 98-108 8033874039) CO2 TOTAL (test code = 25 mmol/L 23-31 7320739652) AGAP (test code = 12 2-16 4459840663) BUN (test code = 14 mg/dL 7-23 3855449014) GLUCOSE (test code = 95 mg/dL 70-110 2591333359) CREATININE (test code = 0.48 mg/dL 0.50-1.04 L 0633224169) CALCIUM (test code = 9.9 mg/dL 8.6-10.6 4683823731) eGFR (test code = 157.6 mL/min/1.73m2 4876497738) BRENDAN (test code = BRENDAN) Association of Glomerular Filtration Rate (GFR) and Staging of Kidney Disease* + --+ --+ ------+| GFR (mL/min/1.73 m2) ?| With Kidney Damage ?| ?Without Kidney Damage+ --------+ --------+ +| ?>90 ?| ?Stage one ?| ? Normal ?+ ---+ ---+ -------+| ?60-89 ?| ?Stage two ?| ? Decreased GFR ? + --+ --+ ------+| ?30-59 ?| ?Stage three ?| ? Stage three ? + --+ --+ ------+| ?15-29 ?| ?Stage four ? | ? Stage four ?+ ---+ ---+ -------+| ?<15 (or dialysis) ? ?| ?Stage five ? | ? Stage five ?+ ---+ ---+ -------+ *Each stage assumes the associated GFR level has been in effect for at least three months. ?Stages 1 to 5, with or without kidney disease, indicate chronic kidney disease. Notes: Determination of stages one and two (with eGFR >59mL/min/1.73 m2) requires estimation of kidney damage for at least three months as defined by structural or functional abnormalities of the kidney, manifested by either:Pathological abnormalities or Markers of kidney damage (including abnormalities in the composition of the blood or urine or abnormalities in imaging tests). Lab Interpretation Abnormal (test code = 67552-6) [id number]00 Test Item Value Reference Range Interpretation Comments POCT PREG (test code = 1605) Positive On board controls acceptable with C Yes Line (test code = 3574) Lab Interpretation (test code = Normal 82409-0) [facility] [id number] 07:12:23 Test Item Value Reference Range Interpretation Comments GLUC 1 HR (test code = 6305830194) 160 mg/dL 120-170 Lab Interpretation (test code = Normal 59989-6) [facility] W/O SPECIFIC [id number] 14:03:00 Test Item Value Reference Range Interpretation Comments POCT PH U (test code = 3254) 7 mg/dl 5-8 POCT U LEUK EST (test code = 1+ Negative - Negative 3263) POCT U NIT (test code = 3262) neg Negative - Negative POCT U PROT (test code = 3259) trace Negative - Negative POCT U GLU (test code = 3256) neg Negative - Negative POCT U KETONE (test code = 3258) net Negative - Negative POCT U BLD (test code = 3257) neg Negative - Negative [facility] [id number] 14:02:00 Test Item Value Reference Range Interpretation Comments POCT PREG (test code = 1605) Positive On board controls acceptable with C Yes Line (test code = 3574) POCT PREG LOT # (test code = 3575) POCT PREG TEST DATE (test code = 3576) [facility]"
[2023-05-18] MEDS ORDERED: FAMOTIDINE 20 MG/2 ML VIAL IV ONE (01:56)
[2023-05-18] MEDS ORDERED: NA CHLORIDE 0.9% 1,000 ML ONE ×2 (01:57→03:24)
[2023-05-18] MEDS ORDERED: DIPHENHYDRAMINE 50 MG/ML VIAL ONE (01:57)
[2023-05-18 02:14] LABS: Urine Bacteria None Seen /HPF (<20); Urine Bilirubin NEGATIVE (Negative); Urine Blood Negative (Negative); Urine Clarity Extremely Turbid (Clear); Urine Color Light-Yellow (Yellow); Urine Glucose NEGATIVE (Negative); Urine Mucus Slight /HPF (None Seen); Urine Protein TRACE (Negative); Urine RBC None Seen /HPF (None Seen); Urine Urobilinogen Normal (Normal); Urine pH 6.5 (5.0-7.0)
[2023-05-18] MEDS ORDERED: PROMETHAZINE INJ 25 MG/ML AMP ONE (03:23)
[2023-05-18] MEDS ORDERED: MORPHINE 4 MG/ML SYR ONE (03:24)
--- NOTE | 2023-05-18 04:04 | ER ---
Nurse's Notes [facility] Name: Theresa Martinez Age: 27 yrs Sex: Female : 1995 Arrival Date: 05/18/2023 Time: 01:13 Bed 5 Private MD: Diagnosis: Migraine without aura, not intractable; state, incidental Presentation: 05/18 01:36 Chief complaint: Patient states: I am having a migraine headache that started at 6pm It jb4 goes to my jaw and down my back. This is the worst I have ever had. Coronavirus screen: At this time, the client does not indicate any symptoms associated with coronavirus-19. Ebola Screen: No symptoms or risks identified at this time. Initial Sepsis Screen: Does the patient meet any 2 criteria? HR > 90 bpm. Yes Does the patient have a suspected source of infection? No. Patient's initial sepsis screen is negative. Risk Assessment: Do you want to hurt yourself or someone else? Patient reports no desire to harm self or others. Onset of symptoms was May 18, 2023. Transition of care: patient was not received from another setting of care. 01:36 Method Of Arrival: Ambulatory jb4 01:36 Acuity: JESICA 4 jb4 Triage Assessment: 01:37 Headache History: The patient has had previous headaches and this one is more severe jb4 than previous episodes. General: Appears in no apparent distress. uncomfortable, Behavior is cooperative, crying. Pain: Complains of pain in right side of head Pain radiates to Right jaw, back Pain at worst was 10 out of 10 on a pain scale. Pain began 6pm 05/17/23 Also complains of photophobia, phonophobia. EENT: No signs and/or symptoms were reported regarding the EENT system. Neuro: Level of Consciousness is awake, alert, obeys commands, Oriented to person, place, time, situation, Moves all extremities. Full function Gait is steady, Speech is normal, Facial symmetry appears normal, Pupils are PERRLA, Reports headache that is the "worst ever", photophobia Phonophobia. Cardiovascular: Patient's skin is warm and dry. Respiratory: Airway is patent Respiratory effort is even, unlabored, Respiratory pattern is regular, symmetrical. GI: No signs and/or symptoms were reported involving the gastrointestinal system. : No signs and/or symptoms were reported regarding the genitourinary system. Derm: Skin is intact, Skin is pink, warm \\T\\ dry. Musculoskeletal: Circulation, motion, and sensation intact. Range of motion: intact in all extremities. AIR MARSHAL: 01:37 Verified jb4 Historical: - Allergies: 01:37 No Known Allergies; jb4 - PMHx: 01:37 Migraine; jb4 - PSHx: 01:37 None; jb4 - Immunization history:: Adult Immunizations up to date. - Social history:: Smoking status: Patient denies any tobacco usage or history of. Screenin:41 [facility] ED Fall Risk Assessment (Adult) History of falling in the last 3 months, jb4 including since admission No falls in past 3 months (0 pts) Confusion or Disorientation No (0 pts). Abuse screen: Denies threats or abuse. Nutritional screening: No deficits noted. Tuberculosis screening: No symptoms or risk factors identified. Assessment: 01:41 Reassessment: see triage note. jb4 02:10 Pain: Complains of pain in face Pain at worst was 10 out of 10 on a pain scale. Quality nw1 of pain is described as aching, sharp, Pain began 4 hours ago. Is continuous, Alleviated by nothing. Noted to be moaning. Neuro: Level of Consciousness is awake, alert, obeys commands, Oriented to person, place, time, situation, Appropriate for age Moves all extremities. Full function. Respiratory: No deficits noted. GI: Reports nausea, vomiting. : No signs and/or symptoms were reported regarding the genitourinary system. Musculoskeletal: No deficits noted. 02:22 General: Appears uncomfortable. nw1 02:24 Reassessment: Unable to collect blood for lab. Several attempts made. Physician made nw1 aware and states blood not needed at this time. 03:05 Reassessment: Patient states no relief in headache and states that she had a vomiting nw1 episode, notified physician. New orders made. Will administer medication and monitor. at bedside. Call light in reach. Vital Signs: 01:36 BP 123 / 82; Pulse 115; Resp 26; Temp 98.7(O); Pulse Ox 100% on R/A; Weight 47.63 kg jb4 (R); Height 5 ft. 2 in. (R); Pain 10/10; 02:21 BP 108 / 64; Pulse 120; Resp 20; Pulse Ox 100% ; nw1 03:17 BP 100 / 83; Pulse 140; Resp 20; Pulse Ox 99% on R/A; jb4 03:55 Pulse 115; ec2 03:59 BP 92 / 66; Pulse 111; Resp 14; Pulse Ox 100% ; nw1 01:36 Body Mass Index 19.20 (47.63 kg, 157.48 cm) jb4 01:36 Pain Scale: Adult jb4 03:59 Pt resting in bed with both eyes closed. at bedside. 0 s/s of acute distress nw1 noted. Vincent Coma Score: 01:35 Eye Response: spontaneous(4). Motor Response: obeys commands(6). Verbal Response: snw oriented(5). Total: 15. 02:00 Eye Response: spontaneous(4). Motor Response: obeys commands(6). Verbal Response: snw oriented(5). Total: 15. 03:00 Eye Response: spontaneous(4). Motor Response: obeys commands(6). Verbal Response: snw oriented(5). Total: 15. ED Course: 01:28 Patient arrived in ED. ag3 01:29 Rosalba Gibson FNP-C [facility]. snw 01:30 Chencho King MD is Attending Physician. snw 01:36 Devonte Sherwood, LUANN is Primary Nurse. jb4 01:37 Triage completed. jb4 01:37 Arm band placed on right wrist. jb4 01:41 Patient has correct armband on for positive identification. Bed in low position. Call jb4 light in reach. Side rails up X 1. 02:22 Inserted saline lock: 22 gauge in right hand, using aseptic technique. Flushed right nw1 hand with 5 ml normal saline. 02:23 No provider procedures requiring assistance completed. nw1 02:24 Urine collected: clean catch specimen, clear. nw1 04:15 Provided Education on: discharge instructions. Medication teaching. nw1 04:16 IV discontinued, intact, bleeding controlled, No redness/swelling at site. Pressure nw1 dressing applied. Administered Medications: 04:18 Discontinued: ns 0.9% 1000 ml IV at 1 bolus Per protocol; 1000 mL bolus nw1 02:09 Drug: Famotidine IVP 20 mg IVP once; dilute with 10 mL 0.9% NaCl; give over 2 minutes nw1 Route: IVP; Site: right hand; 02:10 Drug: NS 0.9% IV 1000 ml IV at 1 bolus Per protocol; 1000 mL bolus Route: IV; Rate: 1 nw1 bolus; Site: right hand; 02:10 Drug: diphenhydrAMINE IVP 25 mg IVP once Route: IVP; Site: right hand; nw1 04:18 Follow up: Response: No adverse reaction nw1 03:08 Not Given (Other Intervention Used): hydrocodone-acetaminophen5 mg-325 mg 1 tabs PO oncejb4 03:23 Drug: NS 0.9% IV 1000 ml IV at 1 bolus Per protocol; 1000 mL bolus Route: IV; Rate: 1 jb4 bolus; Site: right hand; 04:18 Follow up: Response: No adverse reaction nw1 03:23 Drug: morphine IM 4 mg IM once Route: IM; Site: right deltoid; jb4 04:17 Follow up: Response: No adverse reaction; Pain is decreased nw1 03:23 Drug: Promethazine IVP 12.5 mg IVP once Route: IVP; Site: right hand; jb4 04:17 Follow up: Response: No adverse reaction; Nausea is decreased nw1 Medication: 01:41 VIS not applicable for this client. jb4 Outcome: 04:03 Discharge ordered by . ec2 04:15 Discharged to home ambulatory, with significant other, nw1 04:15 Condition: improved 04:15 Discharge instructions given to patient, significant other, Prescriptions given X 1, 04:18 Patient left the ED. nw1 Signatures: Rosalba Gibson, KEERTHI-C BODY DESIGNER-CsnDevonte Santoyo, RN RN jb4 Silvia Brewer 3 Chencho King MD MD ec2 Renae Tobar RN RN nw1 Corrections: (The following items were deleted from the chart) 03:24 03:23 Promethazine IVP 12.5 mg IVP in right antecubital jb4 jb4
--- NOTE | 2023-05-18 04:04 | EDPHYS ---
Physician Documentation [facility] Name: Theresa Martinez Age: 27 yrs Sex: Female : 1995 Arrival Date: 05/18/2023 Time: 01:13 Bed 5 Private MD: ED Physician Chencho King HPI: 05/18 01:38 This 27 yrs old Female presents to ER via Ambulatory with complaints of Headache. snw 01:38 The patient complains of pain to the right jaw and right samaritan and right ear and right snw cheek and right eye and forehead and top of head. The patient describes the headache as unrelenting. Onset: The symptoms/episode began/occurred acutely, last night. Associated signs and symptoms: Pertinent positives: nausea, , vomiting. Severity of symptoms: At its worst the pain was severe. Headache History: The patient has had previous headaches and this one is similar to previous episodes, and this one is more severe than previous episodes. The patient has experienced similar episodes in the past. , 10 wk IUP, denies vag bleeding, abd cramping. MOUNTAIN BIKE GUIDE: 01:37 Verified jb4 Historical: - Allergies: 01:37 No Known Allergies; jb4 - PMHx: 01:37 Migraine; jb4 - PSHx: 01:37 None; jb4 - Immunization history:: Adult Immunizations up to date. - Social history:: Smoking status: Patient denies any tobacco usage or history of. ROS: 01:36 Constitutional: Negative for fever, chills, and weight loss, Eyes: Negative for injury, snw pain, redness, and discharge, ENT: Negative for injury, pain, and discharge, Neck: Negative for injury, pain, and swelling, Cardiovascular: Negative for chest pain, palpitations, and edema, Respiratory: Negative for shortness of breath, cough, wheezing, and pleuritic chest pain, 01:36 Back: Negative for injury and pain, : Negative for injury, bleeding, discharge, and swelling, MS/Extremity: Negative for injury and deformity, Skin: Negative for injury, rash, and discoloration, Psych: Negative for depression, anxiety, suicide ideation, homicidal ideation, and hallucinations, 01:36 Abdomen/GI: Positive for nausea and vomiting, 01:36 Neuro: Positive for headache, of the top of head, forehead, right eye, right cheek, right ear, right samaritan and right jaw, Exam: 01:36 Constitutional: This is a well developed, well nourished patient who is awake, alert, snw and in no acute distress. Head/Face: Normocephalic, atraumatic. Eyes: Pupils equal round and reactive to light, extra-ocular motions intact. Lids and lashes normal. Conjunctiva and sclera are non-icteric and not injected. Cornea within normal limits. Periorbital areas with no swelling, redness, or edema. ENT: Nares patent. No nasal discharge, no septal abnormalities noted. Tympanic membranes are normal and external auditory canals are clear. Oropharynx with no redness, swelling, or masses, exudates, or evidence of obstruction, uvula midline. Mucous membranes moist. Neck: Trachea midline, no thyromegaly or masses palpated, and no cervical lymphadenopathy. Supple, full range of motion without nuchal rigidity, or vertebral point tenderness. No Meningismus. Chest/axilla: Normal chest wall appearance and motion. Nontender with no deformity. No lesions are appreciated. Cardiovascular: Regular rate and rhythm with a normal S1 and S2. No gallops, murmurs, or rubs. Normal PMI, no JVD. No pulse deficits. 01:36 Back: No spinal tenderness. No costovertebral tenderness. Full range of motion. 01:36 Skin: Warm, dry with normal turgor. Normal color with no rashes, no lesions, and no evidence of cellulitis. MS/ Extremity: Pulses equal, no cyanosis. Neurovascular intact. Full, normal range of motion. 01:36 Respiratory: the patient does not display signs of respiratory distress, Respirations: shallow respirations, tachypnea, hyperventilating, 01:36 Abdomen/GI: Inspection: abdomen appears normal, Bowel sounds: normal, 01:36 Neuro: Orientation: is normal, Mentation: is normal, Memory: is normal, 01:36 Psych: Behavior/mood is pleasant, cooperative, anxious, Affect is animated, tearful. Vital Signs: 01:36 BP 123 / 82; Pulse 115; Resp 26; Temp 98.7(O); Pulse Ox 100% on R/A; Weight 47.63 kg jb4 (R); Height 5 ft. 2 in. (R); Pain 10/10; 02:21 BP 108 / 64; Pulse 120; Resp 20; Pulse Ox 100% ; nw1 03:17 BP 100 / 83; Pulse 140; Resp 20; Pulse Ox 99% on R/A; jb4 03:55 Pulse 115; ec2 03:59 BP 92 / 66; Pulse 111; Resp 14; Pulse Ox 100% ; nw1 01:36 Body Mass Index 19.20 (47.63 kg, 157.48 cm) jb4 01:36 Pain Scale: Adult jb4 03:59 Pt resting in bed with both eyes closed. at bedside. 0 s/s of acute distress nw1 noted. Neal Coma Score: 01:35 Eye Response: spontaneous(4). Motor Response: obeys commands(6). Verbal Response: snw oriented(5). Total: 15. 02:00 Eye Response: spontaneous(4). Motor Response: obeys commands(6). Verbal Response: snw oriented(5). Total: 15. 03:00 Eye Response: spontaneous(4). Motor Response: obeys commands(6). Verbal Response: snw oriented(5). Total: 15. MDM: 01:30 Patient medically screened. snw 03:11 Differential diagnosis: migraine, vasomotor headache. Data reviewed: vital signs, snw nurses notes. Test considered but Not performed: Labs: . Counseling: I had a detailed discussion with the patient and/or guardian regarding the historical points, exam findings, and any diagnostic results supporting the discharge/admit diagnosis, the need for outpatient follow up, for definitive care, a family practitioner, an OB/Gyne specialist. Transition of care: After a detail discussion of the patient's case, care is transferred to Chencho King MD. ED course: Pt's HR remains in the 120-130s. Pt states her headache had been relieved from a 10 to a 4 but has come back. Pt vomited x 1. po meds cancelled and a second bolus, phenergan iv and morphine im ordered. . 03:17 ED course: Patient signed out to me by VISHAL, patient with history of migraines, ec2 currently , arrives today with worsening typical migraine symptoms. Plan is to reassess the patient after medication cocktail.. 03:18 ED course: Patient lab work is remarkable for ketonuria which would be consistent with ec2 hyperemesis. . 03:55 ED course: On reassessment patient reports marked improvement in her symptoms.. ec2 04:02 ED course: On reassessment patient remains well-appearing and appears comfortable. ec2 Unable to initially get lab work due to the patient's decreased volume status. Ultimately I discussed this with the patient and do not feel that lab work would be beneficial or management changes at this time. Possible that she has an WICHO or some mild electrolyte disturbances however patient adamantly received 2 L of crystalloid here in the emergency department with marked improvement in her symptoms. Ultimately will discharge patient home scription for [facility] and have her follow-up with her hydration. Return precaution given.. 05/18 01:36 Order name: Urinalysis w/ reflexes; Complete Time: 02:19 snw 05/18 01:36 Order name: IV Saline Lock; Complete Time: 02:10 snw 05/18 01:36 Order name: Labs collected and sent; Complete Time: 02:11 snw 05/18 03:05 Order name: O2: NRB at 15L x 10 minutes; Complete Time: 03:27 snw Administered Medications: 04:18 Discontinued: ns 0.9% 1000 ml IV at 1 bolus Per protocol; 1000 mL bolus nw1 02:09 Drug: Famotidine IVP 20 mg IVP once; dilute with 10 mL 0.9% NaCl; give over 2 minutes nw1 Route: IVP; Site: right hand; 02:10 Drug: NS 0.9% IV 1000 ml IV at 1 bolus Per protocol; 1000 mL bolus Route: IV; Rate: 1 nw1 bolus; Site: right hand; 02:10 Drug: diphenhydrAMINE IVP 25 mg IVP once Route: IVP; Site: right hand; nw1 04:18 Follow up: Response: No adverse reaction nw1 03:08 Not Given (Other Intervention Used): hydrocodone-acetaminophen5 mg-325 mg 1 tabs PO oncejb4 03:23 Drug: NS 0.9% IV 1000 ml IV at 1 bolus Per protocol; 1000 mL bolus Route: IV; Rate: 1 jb4 bolus; Site: right hand; 04:18 Follow up: Response: No adverse reaction nw1 03:23 Drug: morphine IM 4 mg IM once Route: IM; Site: right deltoid; jb4 04:17 Follow up: Response: No adverse reaction; Pain is decreased nw1 03:23 Drug: Promethazine IVP 12.5 mg IVP once Route: IVP; Site: right hand; jb4 04:17 Follow up: Response: No adverse reaction; Nausea is decreased nw1 Disposition: 04:05 I reviewed the patient's care provided by Advanced Practice Provider \T\ agree w/ the ec2 diagnosis \T\ care plan. I personally saw the pt \T\ performed a substantive portion of the visit, incldng all aspects of the (History/Exam/Medical Decision Making). Disposition Summary: 05/18/23 04:03 Discharge Ordered Notes: Location: Home ec2 Condition: Stable ec2 Diagnosis - Migraine without aura, not intractable ec2 - state, incidental ec2 Followup: snw - With: Emergency Department - When: As needed - Reason: Worsening of condition Followup: snw - With: Private Physician - When: 2 - 3 days - Reason: Recheck today's complaints, Continuance of care, Re-evaluation by your physician Discharge Instructions: - Discharge Summary Sheet snw - Migraine Headache snw - Care snw - Rehydration, Adult snw - Migraine Headache, [id number] ec2 Forms: - Medication Reconciliation Form ec2 - Thank You Letter ec2 - Antibiotic Education ec2 - Prescription Opioid Use ec2 - Patient Portal Instructions ec2 - Leadership Thank You Letter ec2 Prescriptions: - Zofran 4 mg Oral Tablet - take 1 tablet ORAL route every 12 hours As needed; 20 tablet; Refills: 0, ec2 Product Selection Permitted Signatures: Dispatcher [employer] Rosalba Rueda FNP-C DIETARY AID-Csnw Devonte Sherwood, RN RN jb4 Chencho King MD MD ec2 Renae Tobar RN RN nw1
[2023-05-18 04:27] VITALS: TEMP 98.7
[2023-05-18 04:45] VITALS: BP 92/66; O2SAT 100
== END 2023-05-18 04:18 | disposition home or self-care (01) ==
LOC: ER 01:13
DX: G43.009 Migraine without aura, not intractable, without status migrainosus (principal); Z33.1 Pregnant state, incidental
CPT/HCPCS: 81001; 96372; 96374; 96375; 99284; J1200; J2550; J7030

== ENCOUNTER 2024-06-09 15:06 | Emergency (ER) | payer OTHER ==
--- OUTSIDE RECORDS SUMMARY | 2024-06-09 15:11 | XMS REPORT | Continuity of Care Document ---
Author Name Unknown Address [address] [place] [address] [facility] thconnect Address [address] [place] [address] Care Team Providers Care Vp Director Of Creative Strategy Name Role Phone Lew Abdul Primary Care Physicia n RICHARD GOLDMAN Attending Clinician Unavailable RICHARD GOLDMAN Attending Clinician Unavailable Richard Goldman MD Attending Clinician [phone], [facility] Attending Clinician Unavailable Nurse, [facility] Attending Clinician Un available Lew Abdul Attending Clinician + Jac Pardo CRNA Attending Clinician [phone] Gail Lopez MD Attending Clinician [phone] Nanette Mcdowell MD Attending Clinician [phone] YAMILET MARTINS Attending Clinician Unavailable LEW MISHRA Attending Clinician Unavail KEISHA Sanchez Attending Clinician KEISHA Cesar Attending Clinician ODESSA Cintron Attending Clinician Unavailable ODESSA GUERRA Attending Clinician Unavailable Ultrasound, Ang-Mfm Attending Clinician UnavailOdessa Peck MD Attending Clinician [phone] TAMMY LEMONS Attending Clinician Unavailable Tammy Lemons MD Attending Clinician [phone] Doctor Unassigned, [place] Attending Clinician U CHELE Mathur Attending Clinician Unavailable CHELE ARIAS Attending Clinician Unavailable Chele Arias MD Attending Clinician [phone] [phone], [facility] Main Attending Clinician Unavailabl e SCOTT ADHIKARI Attending Clinician Unav odette Ramirez MD, Scott Attending Clinician + Lab, Ang-Rmchp Attending Clinician Unavailable MELISSA CRUM Attending Clinician Unavailable Jing Hebert Attending Clinician [phone] Melissa Crum MD Attending Clinician [phone], [facility] Attending Clinician Unavailable Lab, [facility] Fam Pob I Attending Clinician Unavailab Betsy Blackman Attending Clinician [phone] BETSY COVARRUBIAS Attending Clinician Unavailable KEISHA ALAS Admitting Clinician Richard Fang MD Admitting Clinician [phone] RICHARD GOLDMAN Admitting Clinician Unavailable TAMMY LEMONS Admitting Clinician Unavailable Tammy Lemons MD Admitting Clinician [phone] MELISSA CRUM Admitting Clinician Unavailable Payers Payer Name Policy Type Policy Number Effective Date Expirati on Date Source [facility] [id number] 2023 00:00:00 [facility] [id number] 2023 00:00:00 [facility] [id number] 2023 00:00:00 Problems Condition Name Condition Details Condition Category Status Onset Date Resolution Date Last Treatment Date Treating Clinician Comments Source depression depression Disease Active 04-06 00:00: 00 [facility] Anxiety disorder, unspecifie d type Anxiety disorder, unspecifie d type Disease Active 04-06 00:00: 00 [facility] Mild pre-eclamp rohith in third trimester Mild pre-eclamp rohith in third trimester Disease Active 16 00:00: 00 [facility] History of pre-eclamp rohith History of pre-eclamp rohith Disease Active 2023-0 5-16 00:00: 00 [facility] No known active problems No known active problems Disease [facility] 39 weeks gestation of 39 weeks gestation of Disease Resolve d 2023-0 5-15 00:00: 00 2024-01-20 00:00:00 2024-01-20 12:24:48 [facility] Liveborn , of pena , born in hospital by vaginal delivery Liveborn , of pena , born in hospital by vaginal delivery Disease Resolve d 2023-0 5-15 00:00: 00 2024-01-20 00:00:00 2024-01-20 11:08:33 [facility] Placenta previa antepartum Placenta previa antepartum Disease Resolve d 2022-1 2-28 00:00: 00 2024-01-20 00:00:00 2024-01-20 12:24:47 Overview: Formattin g of this note might be different from the original. . Recommend repeat ultrasoun d at 32 weeks for placental localizat ion.-reso lved [facility] Abnormal maternal glucose tolerance, antepartum Abnormal maternal glucose tolerance, antepartum Disease Resolve d 2022-0 9-27 00:00: 00 2024-01-20 00:00:00 2024-01-20 12:24:45 Overview: Formattin g of this note might be different from the original. Unable to complete lab (veins roll), will check blood glucose x2 wks and follow up Pending 3hr, repeat at 26-28wks [facility] Multiparit y Multiparit y Disease Resolve d 2022-0 9-26 00:00: 00 2024-01-20 00:00:00 2024-01-20 12:24:45 [facility] Supervisio n of high-risk Supervisio n of high-risk Disease Resolve d 2022-0 9-26 00:00: 00 2024-01-20 00:00:00 2024-01-20 12:24:47 [facility] 38 weeks gestation of 38 weeks gestation of Disease Resolve d 2-10 00:00: 00 2024-01-20 00:00:00 2024-01-20 12:24:43 [facility] Celestino Hick's contractio n Mayes Hick's contractio n Disease Resolve d 2016-07 1 00:00: 00 2024-01-20 00:00:00 2024-01-20 12:24:42 [facility] BMI 28.0-28.9, adult BMI 28.0-28.9, adult Disease Resolve d 3-27 00:00: 00 2020-12-09 00:00:00 2020-12-09 16:02:18 [facility] Screen for STD (sexually transmitte d disease) Screen for STD (sexually transmitte d disease) Disease Resolve d 10-22 00:00: 00 2020-12-09 00:00:00 2020-12-09 16:02:15 [facility] Overweight (BMI 25.0-29.9) Overweight (BMI 25.0-29.9) Disease Resolve d 10-22 00:00: 00 2020-12-09 00:00:00 2020-12-09 16:02:14 [facility] Family history of MTHFR deficiency Family history of MTHFR deficiency Disease Resolve d 7-20 00:00: 00 2020-12-09 00:00:00 2020-12-09 16:02:24 Overview: Paternal grandmoth er [facility] Shoulder dystocia during labor and delivery Shoulder dystocia during labor and delivery Disease Resolve d 2-11 00:00: 00 2017-10-04 00:00:00 2017-10-04 13:09:24 [facility] Obesity (BMI 30-39.9) Obesity (BMI 30-39.9) Disease Resolve d 2-10 00:00: 00 2017-10-04 00:00:00 2017-10-04 13:09:42 [facility] Rupture of membranes with clear amniotic fluid Rupture of membranes with clear amniotic fluid Disease Resolve d 2-10 00:00: 00 2017-10-04 00:00:00 2017-10-04 13:09:43 [facility] Delayed delivery after SROM (spontaneo us rupture of membranes) Delayed delivery after SROM (spontaneo us rupture of membranes) Disease Resolve d 2017-0 2-10 00:00: 00 2017-10-04 00:00:00 2017-10-04 13:09:44 [facility] Edema in in third trimester Edema in in third trimester Disease Resolve d 2017- 2-08 00:00: 00 2017-10-04 00:00:00 2017-10-04 13:09:41 [facility] Acute low back pain without sciatica, unspecifie d back pain laterality Acute low back pain without sciatica, unspecifie d back pain laterality Disease Resolve d 1-18 00:00: 00 2017-10-04 00:00:00 2017-10-04 13:09:40 [facility] Heartburn during , antepartum Heartburn during , antepartum Disease Resolve d 2016-07 2-06 00:00: 00 2017-10-04 00:00:00 2017-10-04 13:09:39 [facility] Primigravi da, antepartum Primigravi da, antepartum Disease Resolve d 2016-07 1- 00:00: 00 2017-10-04 00:00:00 2017-10-04 13:09:38 [facility] Susceptibl e to varicella (non-immun e), currently Susceptibl e to varicella (non-immun e), currently Disease Resolve d 7-13 00:00: 00 2017-10-04 00:00:00 2017-10-04 13:09:37 [facility] Supervisio n of high risk , antepartum Supervisio n of high risk , antepartum Disease Resolve d 7-12 00:00: 00 2017-10-04 00:00:00 2017-10-04 13:09:35 [facility] Dermatitis Dermatitis Disease Resolve d 2016-07 0-12 00:00: 00 2017-06-06 00:00:00 2017-06-06 11:27:42 [facility] Tobacco use during Tobacco use during Disease Resolve d 7-12 00:00: 00 2017-06-06 00:00:00 2017-06-06 11:40:18 [facility] Allergies, Adverse Reactions, Alerts Allergy Name Allergy Type Status Severity Reaction(s) Onset Date Inactive Date Treating Clinician Comments Source [facility] Active Anaphylaxis 08-05 00:00: 00 [facility] Avocado Propensi ty to adverse reaction s Active Anaphylaxis 08-05 00:00: 00 [facility] NO KNOWN ALLERGIE S Drug Class Active [facility] Social History Social Habit Start Date Stop Date Quantity Comments Source ASSERTION 2023-03-27 00:00:00 [facility] History of tobacco use 2017-09-21 00:00:00 Cigarette Smoker [facility] Sexual orientation U [facility] Exposure to SARS-CoV-2 (event) Not sure [facility] History of Social function 2024-05-06 00:00:00 2024-05-06 00:00:00 [facility] Alcoholic beverage intake 2024-05-06 00:00:00 2024-05-06 00:00:00 Current non-drinker of alcohol (finding) [facility] Tobacco use and exposure 2023-12-10 00:00:00 2023-12-10 00:00:00 Smokeless tobacco non-user [facility] Alcohol intake 2023-11-28 00:00:00 2023-11-28 00:00:00 Current non-drinker of alcohol (finding) [facility] Tobacco Comment 2023-08-21 00:00:00 2023-08-21 00:00:00 quit [facility] Sex assigned at 1995 00:00:00 1995 00:00:00 [facility] Smoking Status Start Date Stop Date Source Ex-smoker 2023-12-10 00:00:00 2023-12-10 00:00:00 [facility] Current every day smoker 2017-10-22 00:00:00 [facility] Medications Ordered Medication Name Filled Medication Name Start Date Stop Date Current Medication? Ordering Clinician Indication Dosage Frequency Signature (SIG) Comments Components Source busPIRone 5 mg tablet 2023-07 00:00: 00 Yes [id number] 5mg Take 1 tablet by mouth in the morning and 1 tablet in the evening. [facility] busPIRone 5 mg tablet 04-06 00:00: 00 05-06 00:00 :00 No [id number] 5mg Take 1 tablet by mouth in the morning and 1 tablet in the evening. [facility] SERTraline (ZOLOFT) 50 mg tablet 01-26 00:00: 00 02-23 00:00 :00 No [id number] 50mg Take 1 tablet by mouth in the morning. [facility] SERTraline (ZOLOFT) 25 mg tablet 01-19 00:00: 00 01-27 04:59 :00 No [id number] 25mg Take 1 tablet by mouth in the morning for 7 days. [facility] witch Timothy (TUCKS) 50 % topical pad 12-11 12:37: 24 Yes [facility] rho(D) immune globulin (HYPERRHO/R HOGAM) syringe 300 mcg 12-11 05:19: 58 Yes 300ug [facility] HYDROcodone -acetaminop hen (NORCO 5) 5-325 mg tablet 1 tablet 12-11 05:19: 36 Yes 1{tbl} [facility] ibuprofen (IBU) tablet 600 mg 12-11 05:19: 36 Yes 600mg 600 mg, Oral, Q6HPRN, Starting on Nadia 12/12/23 at 0019, Until Discontinu ed, Routine, Pain (scale 4-6) [facility] acetaminoph en (TYLENOL) tablet 650 mg 12-11 05:19: 36 Yes 650mg [facility] diphenhydrA MINE (BENADRYL) tablet 25 mg 12-11 05:19: 36 Yes 25mg [facility] ondansetron (ZOFRAN (PF)) injection 4 mg 12-11 05:19: 36 Yes 4mg [facility] simethicone (GAS RELIEF (SIMETHICON E)) chewable tablet 160 mg 12-11 05:19: 36 Yes 160mg [facility] docusate (COLACE) capsule 200 mg 12-11 05:19: 36 Yes 200mg [facility] magnesium hydroxide (MILK OF MAGNESIA) 400 mg/5 mL suspension 30 mL 12-11 05:19: 36 Yes 30mL [facility] benzocaine- menthol (DERMOPLAST ) 20-0.5 % topical spray 12-11 05:19: 36 Yes Topical, PRN, Starting on Nadia 12/12/23 at 0019, Until Discontinu ed, Routine, Perineum discomfort [facility] oxytocin (PITOCIN) 30 units in NS 500 mL IV infusion 12-11 02:20: 32 12-11 05:15 :08 No 300mL/h 300 mL/hr, IV Infusion, SEE-INSTRU CTIONS, Starting on Sat12/11/23 at 2120, Start at 300 mL/hr for 1 hr then 150 mL/hr for 1 hr. For post delivery uterotonic . [facility] vitamin w/FA tablet 12-11 00:00: 00 02-23 00:00 :00 No [id number] 1{tbl} Take 1 tablet by mouth in the morning. [facility] docusate 100 mg capsule 12-11 00:00: 00 02-23 00:00 :00 No [id number] 200mg Take 2 capsules by mouth once daily as needed for Constipati on. [facility] ferrous sulfate 325 mg (65 mg iron) tablet 12-11 00:00: 00 02-23 00:00 :00 No [id number] 325mg Take 1 tablet by mouth in the morning. [facility] ibuprofen 800 mg tablet 12-11 00:00: 00 02-23 00:00 :00 No [id number] 800mg Take 1 tablet by mouth every 8 (eight) hours as needed (pain). Take with food or milk. [facility] fentaNYL-ro pivacaine 2 mcg/mL-0.1 % (PF) in NS 200 mL epidural infusion RTU 12-10 17:18: 00 12-11 10:26 :43 No Intra-op [facility] lidocaine-e pinephrine (XYLOCAINE W/EPINEPHRI NE) 1.5 %-1:200,000 injection 12-10 17:15: 00 12-11 10:26 :43 No Epidural, ONCE INTRA PROCEDURE, Starting on Sat12/11/23 at 1215, Until Nadia 12/12/23 at 0526, Routine, Intra-op [facility] acetaminoph en (TYLENOL) tablet 650 mg 12-10 11:30: 00 12-10 10:43 :00 No 650mg 650 mg, Oral, ONCE, 1 dose, On Sat12/11/23 at 0630, Routine [facility] proMETHazin e (PHENERGAN) 25 mg in NS 50 mL IV piggyback (CNR) 12-10 08:57: 22 12-11 12:37 :25 No 25mg 25 mg, IV Piggyback, at 200 mL/hr Administer over 15 Minutes, Q4HPRN, Starting on Sat12/11/23 at 0357, Until Nadia 12/12/23 at 0737, Routine, Nausea and Vomiting (N/V) [facility] FENTanyl PF (SUBLIMAZE (PF)) injection 50 mcg 12-10 08:57: 22 12-11 12:37 :25 No 50ug 50 mcg, Slow IV Push, Q2HPRN, Starting on Sat12/11/23 at 0357, Until Nadia 12/12/23 at 0737, Routine, contractio n pain without an epidural and SVE < 8 cm and Cat I strip [facility] oxytocin (PITOCIN) 30 units in NS 500 mL IV infusion 12-10 08:57: 13 12-11 12:37 :25 No 2mU/min at 2-40 mL/hr, IV Infusion, TITRATE, Starting on Sat12/11/23 at 0357, Until Nadia 12/12/23 at 0737, SHONA [facility] D5W-LR IV infusion 1,000 mL 12-10 08:57: 13 12-11 12:37 :24 No 1000mL at 1-125 mL/hr, IV Infusion, TITRATE, Starting on Sat12/11/23 at 0357, Until Nadia 12/12/23 at 0737, Routine [facility] metroNIDAZO LE (FLAGYL) tablet 500 mg 12-06 16:45: 00 12-06 16:54 :00 No 500mg 500 mg, Oral, ONCE, 1 dose, On 12/07/23 at 1200, SHONA, Reason for Anti-Infec tive: Documented Infection, Documented Infection Site: Urine, Duration of Therapy: Other (see Comments) [facility] metroNIDAZO LE 500 mg tablet 12-06 00:00: 00 12-11 00:00 :00 No [id number] 500mg Take 1 tablet by mouth every 12 (twelve) hours. [facility] ondansetron (ZOFRAN (PF)) injection 4 mg 08-06 04:48: 00 08-06 05:24 :00 No 4mg 4 mg, Slow IV Push, ONCE, On Sat08/05/23 at 2300, For 1 dose
Do ses of ondansetro n 16 mg and above need to be administer ed via IV piggyback. For Dose >=24mg ECG monitoring is advisable.
[facility] lactated ringers IV infusion 1,000 mL 08-06 04:48: 00 08-06 05:25 :08 No 1000mL at 999 mL/hr, 1,000 mL, IV Infusion, ONCE, 1 dose, On Sat08/05/23 at 2300, STAT [facility] Blood-Gluco se Meter (FREESTYLE LITE METER) Kit 2023-1 0-05 00:00: 00 12-09 00:00 :00 No [id number] Check blood glucose 4x daily [facility] lancets (FREESTYLE LANCETS) 28 gauge Misc 2022-07 0-05 00:00: 00 12-09 00:00 :00 No [id number] Check glucose 4x daily [facility] blood sugar diagnostic (FREESTYLE LITE STRIPS) strip 2022-07 0-05 00:00: 00 12-09 00:00 :00 No [id number] Check blood glucose 4x daily [facility] tgn86-beck- folic acid 29 mg iron- 1 mg per tablet 04-23 00:00: 00 12-11 00:00 :00 No [id number] 1{tbl} Take 1 tablet by mouth in the morning. [facility] norgestimat e-ethinyl estradiol (ORTHO TRI-CYCLEN LO, 28,) 0.18/0.215/ 0.25 mg-25 mcg tablet 01-31 00:00: 00 12-09 00:00 :00 No [id number] 1{tbl} Take 1 tablet by mouth daily. [facility] ibuprofen 600 mg tablet 09-09 00:00: 00 12-09 00:00 :00 No 600mg Take 1 tablet by mouth every 6 (six) hours as needed for Pain (scale 1-3) or Pain (scale 4-6) (Pain). Take with food or milk. [facility] No known medications No Un pamela [facility] Immunizations Ordered Immunization Name Filled Immunization Name Date Status Comments Source TDAP 2023-09-25 00:00:00 Completed [facility] Varicella (varivax)(chicken pox) 2017-09-09 00:00:00 Completed [facility] Varicella (varivax)(chicken pox) 2017-09-09 00:00:00 Completed [facility] Varicella (varivax)(chicken pox) 2017-09-09 00:00:00 Completed [facility] Varicella (varivax)(chicken pox) 2017-09-09 00:00:00 Completed [facility] TDAP 2017-07-03 00:00:00 Completed [facility] TDAP 2017-07-03 00:00:00 Completed [facility] TDAP 2017-07-03 00:00:00 Completed [facility] TDAP 2017-07-03 00:00:00 Completed [facility] TDAP Unknown Completed [facility] Varicella (varivax)(chicken pox) Unknown Completed [facility] TDAP Unknown Completed [facility] Varicella (varivax)(chicken pox) Unknown Completed [facility] TDAP Unknown Completed [facility] Varicella (varivax)(chicken pox) Unknown Completed [facility] TDAP Unknown Completed [facility] Varicella (varivax)(chicken pox) Unknown Completed [facility] TDAP Unknown Completed [facility] Varicella (varivax)(chicken pox) Unknown Completed [facility] TDAP Unknown Completed [facility] Varicella (varivax)(chicken pox) Unknown Completed [facility] TDAP Unknown Completed [facility] Varicella (varivax)(chicken pox) Unknown Completed [facility] TDAP Unknown Completed [facility] Varicella (varivax)(chicken pox) Unknown Completed [facility] TDAP Unknown Completed [facility] Varicella (varivax)(chicken pox) Unknown Completed [facility] TDAP Unknown Completed [facility] Varicella (varivax)(chicken pox) Unknown Completed [facility] TDAP Unknown Completed [facility] Varicella (varivax)(chicken pox) Unknown Completed [facility] TDAP Unknown Completed [facility] Varicella (varivax)(chicken pox) Unknown Completed [facility] TDAP Unknown Completed [facility] TDAP Unknown Completed [facility] Varicella (varivax)(chicken pox) Unknown Completed [facility] Varicella (varivax)(chicken pox) Unknown Completed [facility] TDAP Unknown Completed [facility] Varicella (varivax)(chicken pox) Unknown Completed [facility] TDAP Unknown Completed [facility] Varicella (varivax)(chicken pox) Unknown Completed [facility] TDAP Unknown Completed [facility] Varicella (varivax)(chicken pox) Unknown Completed [facility] TDAP Unknown Completed [facility] Varicella (varivax)(chicken pox) Unknown Completed [facility] TDAP Unknown Completed [facility] Varicella (varivax)(chicken pox) Unknown Completed [facility] TDAP Unknown Completed [facility] Varicella (varivax)(chicken pox) Unknown Completed [facility] TDAP Unknown Completed [facility] Varicella (varivax)(chicken pox) Unknown Completed [facility] TDAP Unknown Completed [facility] Varicella (varivax)(chicken pox) Unknown Completed [facility] TDAP Unknown Completed [facility] Varicella (varivax)(chicken pox) Unknown Completed [facility] TDAP Unknown Completed [facility] Varicella (varivax)(chicken pox) Unknown Completed [facility] TDAP Unknown Completed [facility] Varicella (varivax)(chicken pox) Unknown Completed [facility] TDAP Unknown Completed [facility] Varicella (varivax)(chicken pox) Unknown Completed [facility] TDAP Unknown Completed [facility] Varicella (varivax)(chicken pox) Unknown Completed [facility] TDAP Unknown Completed [facility] Varicella (varivax)(chicken pox) Unknown Completed [facility] TDAP Unknown Completed [facility] Varicella (varivax)(chicken pox) Unknown Completed [facility] TDAP Unknown Completed [facility] Varicella (varivax)(chicken pox) Unknown Completed [facility] TDAP Unknown Completed [facility] Varicella (varivax)(chicken pox) Unknown Completed [facility] TDAP Unknown Completed [facility] Varicella (varivax)(chicken pox) Unknown Completed [facility] TDAP Unknown Completed [facility] Varicella (varivax)(chicken pox) Unknown Completed [facility] TDAP Unknown Completed [facility] Varicella (varivax)(chicken pox) Unknown Completed [facility] TDAP Unknown Completed [facility] Varicella (varivax)(chicken pox) Unknown Completed [facility] TDAP Unknown Completed [facility] Varicella (varivax)(chicken pox) Unknown Completed [facility] TDAP Unknown Completed [facility] Varicella (varivax)(chicken pox) Unknown Completed [facility] TDAP Unknown Completed [facility] Varicella (varivax)(chicken pox) Unknown Completed [facility] TDAP Unknown Completed [facility] Varicella (varivax)(chicken pox) Unknown Completed [facility] TDAP Unknown Completed [facility] Varicella (varivax)(chicken pox) Unknown Completed [facility] TDAP Unknown Completed [facility] Varicella (varivax)(chicken pox) Unknown Completed [facility] TDAP Unknown Completed [facility] Varicella (varivax)(chicken pox) Unknown Completed [facility] TDAP Unknown Completed [facility] Varicella (varivax)(chicken pox) Unknown Completed [facility] TDAP Unknown Completed [facility] Varicella (varivax)(chicken pox) Unknown Completed [facility] TDAP Unknown Completed [facility] Varicella (varivax)(chicken pox) Unknown Completed [facility] TDAP Unknown Completed [facility] Varicella (varivax)(chicken pox) Unknown Completed [facility] TDAP Unknown Completed [facility] Varicella (varivax)(chicken pox) Unknown Completed [facility] TDAP Unknown Completed [facility] Varicella (varivax)(chicken pox) Unknown Completed [facility] TDAP Unknown Completed [facility] Varicella (varivax)(chicken pox) Unknown Completed [facility] TDAP Unknown Completed [facility] Varicella (varivax)(chicken pox) Unknown Completed [facility] Vital Signs Vital Name Observation Time Observation Value Comments S ource Systolic blood pressure 2024-05-06 15:13:00 112 mm[Hg] [facility] Diastolic blood pressure 2024-05-06 15:13:00 75 mm[Hg] [facility] Heart rate 2024-05-06 15:13:00 73 /min [facility] Body temperature 2024-05-06 15:13:00 36.94 [facility] Body height 2024-05-06 15:13:00 152.4 cm [facility] [place] Body weight 2024-05-06 15:13:00 61.78 kg [facility] [place] BMI 2024-05-06 15:13:00 26.60 kg/m2 [facility] Systolic blood pressure 2024-04-06 15:46:00 117 mm[Hg] [facility] [place] [facility] Diastolic blood pressure 2024-04-06 15:46:00 75 mm[Hg] [facility] Heart rate 2024-04-06 15:46:00 68 /[facility] 2024-04-06 15:46:00 16 /min [facility] Body height 2024-04-06 15:46:00 154.9 cm Univ [facility] Body weight 2024-04-06 15:46:00 62.506 kg [facility] 2024-04-06 15:46:00 26.04 kg/m2 [facility] Systolic blood pressure 2024-02-24 18:01:00 116 mm[Hg] Ladd o [facility] [place] [place] [facility] [place] Diastolic blood pressure 2024-02-24 18:01:00 80 mm[Hg] [facility] Heart rate 2024-02-24 18:01:00 73 /min Unive [facility] Respiratory rate 2024-02-24 18:01:00 16 /min [facility] Body height 2024-02-24 18:01:00 154.9 cm Univ [facility] [place] [facility] [place] Body weight 2024-02-24 18:01:00 62.778 kg Univ [facility] [place] BMI 2024-02-24 18:01:00 26.15 kg/m2 [facility] Systolic blood pressure 2024-01-20 16:19:00 108 mm[Hg] University o [facility] [place] [place] [facility] Diastolic blood pressure 2024-01-20 16:19:00 72 mm[Hg] Ladd o [facility] Heart rate 2024-01-20 16:19:00 70 /min [facility] Body weight 2024-01-20 16:19:00 63.05 kg Univ [facility] BMI 2024-01-20 16:19:00 27.15 kg/m2 [facility] Systolic blood pressure 2023-12-16 15:30:00 123 mm[Hg] [facility] Diastolic blood pressure 2023-12-16 15:30:00 84 mm[Hg] [facility] Heart rate 2023-12-16 15:30:00 87 /min [facility] Respiratory rate 2023-12-16 15:30:00 18 /min [facility] Body weight 2023-12-16 15:30:00 60.691 kg [facility] BMI 2023-12-16 15:30:00 26.13 kg/m2 [facility] Systolic blood pressure 2023-12-13 13:20:00 114 mm[Hg] [facility] Diastolic blood pressure 2023-12-13 13:20:00 80 mm[Hg] [facility] Heart rate 2023-12-13 13:20:00 71 /min [facility] Body temperature 2023-12-13 13:20:00 36.72 Ke[facility] Respiratory rate 2023-12-13 13:20:00 16 /min [facility] Oxygen saturation in Arterial blood by Pulse oximetry 2023-12-13 08:45:00 99 /min [facility] Body height 2023-12-11 09:03:00 152.4 cm [facility] Body weight 2023-12-11 09:03:00 67.042 kg [facility] BMI 2023-12-11 09:03:00 28.87 kg/m2 [facility] Systolic blood pressure 2023-12-10 14:41:00 127 mm[Hg] [facility] Diastolic blood pressure 2023-12-10 14:41:00 89 mm[Hg] [facility] Heart rate 2023-12-10 14:41:00 82 /min [facility] Body temperature 2023-12-10 14:41:00 36.56 Ke[facility] Body height 2023-12-10 14:41:[address] [facility] Body weight 2023-12-10 14:41:00 66.407 kg [facility] BMI 2023-12-10 14:41:00 28.59 kg/m2 Univ [facility] Heart rate 2023-12-07 16:45:00 90 /min [facility] Oxygen saturation in Arterial blood by Pulse oximetry 2023-12-07 16:45:00 99 /min [facility] Systolic blood pressure 2023-12-07 16:30:00 117 mm[Hg] [facility] Diastolic blood pressure 2023-12-07 16:30:00 72 mm[Hg] [facility] Body temperature 2023-12-07 15:40:00 37.06 Keiry [facility] Respiratory rate 2023-12-07 15:40:00 18 /min [facility] Body height 2023-12-07 15:28:00 152.4 cm [facility] Body weight 2023-12-07 15:28:00 65.635 kg [facility] BMI 2023-12-07 15:28:00 28.26 kg/m2 [facility] Systolic blood pressure 2023-12-04 14:28:00 126 mm[Hg] [facility] Diastolic blood pressure 2023-12-04 14:28:00 83 mm[Hg] [facility] Heart rate 2023-12-04 14:28:00 119 /min [facility] Body temperature 2023-12-04 14:27:00 36.72 Keiry [facility] Respiratory rate 2023-12-04 14:27:00 18 /min [facility] Body height 2023-12-04 14:27:00 152.4 cm [facility] Body weight 2023-12-04 14:27:00 65.499 kg [facility] BMI 2023-12-04 14:27:00 28.20 kg/m2 [facility] Oxygen saturation in Arterial blood by Pulse oximetry 2023-12-04 14:27:00 98 /min [facility] Systolic blood pressure 2023-11-28 16:00:00 112 mm[Hg] [facility] Diastolic blood pressure 2023-11-28 16:00:00 84 mm[Hg] [facility] Heart rate 2023-11-28 16:00:00 95 /min [facility] Oxygen saturation in Arterial blood by Pulse oximetry 2023-11-28 16:00:00 100 /min [facility] Body temperature 2023-11-28 14:01:00 36.94 Keiry [facility] Respiratory rate 2023-11-28 14:01:00 16 /min [facility] Body height 2023-11-28 14:01:00 152.4 cm [facility] Body weight 2023-11-28 14:01:00 64.683 kg [facility] BMI 2023-11-28 14:01:00 27.85 kg/m2 [facility] Systolic blood pressure 2023-11-27 14:07:00 113 mm[Hg] [facility] Diastolic blood pressure 2023-11-27 14:07:00 81 mm[Hg] [facility] Heart rate 2023-11-27 14:07:00 82 /min [facility] Body temperature 2023-11-27 14:07:00 36.39 Keiry [facility] Respiratory rate 2023-11-27 14:07:00 18 /min [facility] Body height 2023-11-27 14:07:00 157.5 cm [facility] Body weight 2023-11-27 14:07:00 64.728 kg [facility] BMI 2023-11-27 14:07:00 26.10 kg/m2 [facility] Systolic blood pressure 2023-11-20 15:42:00 124 mm[Hg] [facility] Diastolic blood pressure 2023-11-20 15:42:00 78 mm[Hg] [facility] Heart rate 2023-11-20 15:42:00 97 /min [facility] Body temperature 2023-11-20 15:42:00 36.33 Keiry [facility] Respiratory rate 2023-11-20 15:42:00 18 /min [facility] Body height 2023-11-20 15:42:[address] [facility] Body weight 2023-11-20 15:42:[address] [facility] BMI 2023-11-20 15:42:00 25.97 kg/m2 Univ [facility] Systolic blood pressure 2023-11-06 20:04:00 116 mm[Hg] Ladd o [facility] Diastolic blood pressure 2023-11-06 20:04:00 77 mm[Hg] [facility] Heart rate 2023-11-06 20:04:00 90 /min [facility] Body temperature 2023-11-06 20:04:00 36.28 Keiry [facility] Respiratory rate 2023-11-06 20:04:00 18 /min [facility] Body height 2023-11-06 20:04:[address] [facility] Body weight 2023-11-06 20:04:[address] [facility] BMI 2023-11-06 20:04:00 25.24 kg/m2 Univ [facility] Systolic blood pressure 2023-10-23 14:47:00 121 mm[Hg] [facility] Diastolic blood pressure 2023-10-23 14:47:00 74 mm[Hg] [facility] Heart rate 2023-10-23 14:47:00 93 /min [facility] acute [facility] Body temperature 2023-10-23 14:47:00 36.39 Keiry [facility] Respiratory rate 2023-10-23 14:47:00 18 /min [facility] Body height 2023-10-23 14:47:[address] [facility] Body weight 2023-10-23 14:47:[address] [facility] BMI 2023-10-23 14:47:00 24.44 kg/m2 Univ [facility] Systolic blood pressure 2023-10-09 15:15:00 102 mm[Hg] [facility] Diastolic blood pressure 2023-10-09 15:15:00 70 mm[Hg] [facility] Heart rate 2023-10-09 15:15:00 85 /min [facility] Body temperature 2023-10-09 15:15:00 36.56 Keiry [facility] Respiratory rate 2023-10-09 15:15:00 17 /min [facility] Body height 2023-10-09 15:15:00 152.4 cm [facility] Body weight 2023-10-09 15:15:00 60.601 kg [facility] BMI 2023-10-09 15:15:00 26.09 kg/m2 [facility] Heart rate 2023-09-26 18:15:00 84 /min [facility] acute hospital Oxygen saturation in Arterial blood by Pulse oximetry 2023-09-26 18:15:00 99 /min [facility] Systolic blood pressure 2023-09-26 18:00:00 112 mm[Hg] [facility] Diastolic blood pressure 2023-09-26 18:00:00 69 mm[Hg] [facility] Body temperature 2023-09-26 15:30:00 37.28 Keiry [facility] Respiratory rate 2023-09-26 15:30:00 16 /min [facility] Body height 2023-09-26 15:30:00 152.4 cm [facility] Body weight 2023-09-26 15:30:00 58.514 kg [facility] BMI 2023-09-26 15:30:00 25.19 kg/m2 [facility] Systolic blood pressure 2023-09-25 16:59:00 127 mm[Hg] [facility] Diastolic blood pressure 2023-09-25 16:59:00 68 mm[Hg] [facility] Heart rate 2023-09-25 16:59:00 91 /min [facility] Body temperature 2023-09-25 16:59:00 35.78 Ke[facility] Respiratory rate 2023-09-25 16:59:00 18 /min [facility] Body height 2023-09-25 16:59:[address] [facility] Body weight 2023-09-25 16:59:00 58.423 kg [facility] BMI 2023-09-25 16:59:00 25.15 kg/m2 Univ [facility] Systolic blood pressure 2023-09-11 13:56:00 107 mm[Hg] [facility] Diastolic blood pressure 2023-09-11 13:56:00 73 mm[Hg] [facility] Heart rate 2023-09-11 13:56:00 85 /min [facility] Body temperature 2023-09-11 13:56:00 36.5 Keiry [facility] Respiratory rate 2023-09-11 13:56:00 18 /min [facility] Body height 2023-09-11 13:56:[address] [facility] Body weight 2023-09-11 13:56:00 56.382 kg [facility] BMI 2023-09-11 13:56:00 24.28 kg/m2 Univ [facility] Systolic blood pressure 2023-08-21 15:57:00 111 mm[Hg] [facility] Diastolic blood pressure 2023-08-21 15:57:00 64 mm[Hg] [facility] Heart rate 2023-08-21 15:57:00 92 /min [facility] Body temperature 2023-08-21 15:57:00 36.11 Keiry [facility] Respiratory rate 2023-08-21 15:57:00 19 /min [facility] Body height 2023-08-21 15:57:[address] [facility] Body weight 2023-08-21 15:57:00 53.524 kg [facility] BMI 2023-08-21 15:57:00 23.05 kg/m2 Univ [facility] Heart rate 2023-08-06 06:30:00 83 /min [facility] acute hospital Oxygen saturation in Arterial blood by Pulse oximetry 2023-08-06 06:30:00 100 /min [facility] Systolic blood pressure 2023-08-06 04:28:00 109 mm[Hg] [facility] Diastolic blood pressure 2023-08-06 04:28:00 62 mm[Hg] [facility] Body temperature 2023-08-06 04:09:00 37.22 Keiry [facility] Respiratory rate 2023-08-06 04:09:00 18 /min [facility] Body height 2023-08-06 04:09:00 152.4 cm [facility] Body weight 2023-08-06 04:09:00 52.436 kg [facility] BMI 2023-08-06 04:09:00 22.58 kg/m2 [facility] Systolic blood pressure 2023-07-24 20:09:00 118 mm[Hg] [facility] Diastolic blood pressure 2023-07-24 20:09:00 81 mm[Hg] [facility] Heart rate 2023-07-24 20:09:00 84 /min [facility] Body temperature 2023-07-24 20:09:00 36.33 Keiry [facility] Respiratory rate 2023-07-24 20:09:00 18 /min [facility] Body height 2023-07-24 20:09:00 157.5 cm [facility] Body weight 2023-07-24 20:09:00 51.801 kg [facility] BMI 2023-07-24 20:09:00 20.89 kg/m2 Univ [facility] Systolic blood pressure 2023-07-02 13:59:00 114 mm[Hg] [facility] Diastolic blood pressure 2023-07-02 13:59:00 73 mm[Hg] [facility] Heart rate 2023-07-02 13:59:00 88 /min [facility] Body temperature 2023-07-02 13:59:00 36.72 Keiry [facility] Respiratory rate 2023-07-02 13:59:00 16 /min [facility] Body height 2023-07-02 13:59:[address] [facility] Body weight 2023-07-02 13:59:[address] [facility] BMI 2023-07-02 13:59:00 20.08 kg/m2 Univ [facility] Systolic blood pressure 2023-06-04 13:49:00 121 mm[Hg] [facility] Diastolic blood pressure 2023-06-04 13:49:00 79 mm[Hg] [facility] Heart rate 2023-06-04 13:49:00 89 /min [facility] 2023-06-04 13:49:00 35.67 Keiry [facility] Respiratory rate 2023-06-04 13:49:00 18 /min [facility] Body height 2023-06-04 13:49:[address] [facility] Body weight 2023-06-04 13:49:[address] [facility] BMI 2023-06-04 13:49:00 19.75 kg/m2 Univ [facility] Systolic blood pressure 2023-05-21 13:00:00 115 mm[Hg] [facility] Diastolic blood pressure 2023-05-21 13:00:00 78 mm[Hg] [facility] Heart rate 2023-05-21 13:00:00 79 /min [facility] Body temperature 2023-05-21 13:00:00 36.67 Keiry [facility] Respiratory rate 2023-05-21 13:00:00 17 /min [facility] Body height 2023-05-21 13:00:[address] [facility] Body weight 2023-05-21 13:00:[address] [facility] BMI 2023-05-21 13:00:00 19.74 kg/m2 Univ [facility] Heart rate 2023-04-25 03:00:00 79 /min [facility] Oxygen saturation in Arterial blood by Pulse oximetry 2023-04-25 03:00:00 100 /min [facility] Systolic blood pressure 2023-04-25 01:45:00 108 mm[Hg] [facility] Diastolic blood pressure 2023-04-25 01:45:00 74 mm[Hg] [facility] Respiratory rate 2023-04-25 01:45:00 16 /min [facility] Body temperature 2023-04-25 00:05:00 37.22 Keiry [facility] Body height 2023-04-25 00:05:[address] [facility] Body weight 2023-04-25 00:05:00 47.673 kg [facility] BMI 2023-04-25 00:05:00 19.22 kg/m2 Univ [facility] Systolic blood pressure 2023-04-23 14:14:00 115 mm[Hg] [facility] Diastolic blood pressure 2023-04-23 14:14:00 74 mm[Hg] [facility] Heart rate 2023-04-23 14:14:00 63 /min [facility] Body temperature 2023-04-23 14:14:00 36.89 Keiry [facility] Respiratory rate 2023-04-23 14:14:00 18 /min [facility] Body height 2023-04-23 14:14:00 154.9 cm [facility] Body weight 2023-04-23 14:14:00 48.353 kg [facility] BMI 2023-04-23 14:14:00 20.14 kg/m2 Univ [facility] Systolic blood pressure 2020-12-09 20:42:00 117 mm[Hg] [facility] Diastolic blood pressure 2020-12-09 20:42:00 77 mm[Hg] [facility] Heart rate 2020-12-09 20:42:00 84 /min [facility] Body temperature 2020-12-09 20:42:00 36.83 Keiry [facility] Respiratory rate 2020-12-09 20:42:00 18 /min [facility] Body height 2020-12-09 20:42:00 154.9 cm [facility] Body weight 2020-12-09 20:42:00 51.256 kg [facility] BMI 2020-12-09 20:42:00 21.35 kg/m2 [facility] Procedures Procedure Date / Time Performed Performing Clinician Source POCT [facility] 2024-04-06 [facility]23[facility]-12 09:26[facility]23-[facility]-12 01:13:00 Goldman [facility] PROTEIN CREAT RATIO URINE RANDOM 2023-12-12 01:13:00 Goldman [facility] CENTRAL NEURAXIAL BLOCK 2023-12-11 17:30:00 Holden Lopez [facility] SGOT (ASPARTATE AMINO TRANSFER) 2023-12-11 09:28:00 [facility] CREATININE 2023-12-11 09:28:00 [facility] ALANINE AMINO TRANSFERASE(SGPT 2023-12-11 09:28:00 Goldman [facility] URIC ACID 2023-12-11 09:28:00 [facility] CBC WITH DIFF 2023-12-11 09:28:00 [facility] HEPATITIS B SURFACE ANTIGEN 2023-12-11 09:28:00 [facility] HB ABO GROUPING 2023-12-11 09:28:00 Jones [facility] RHO (D) IMMUNE GLOBULIN 2023-12-11 09:28:00 Goldman [facility] ADC OR WILLAM ONLY - RPR 2023-12-11 09:28:00 [facility] HIV 1/2 AG-AB WITH REFLEX 2023-12-11 09:28:00 [facility] POCT URINALYSIS W/O SPECIFIC GRAVITY 2023-12-10 00:00:00 Goldman [facility] ADC CLC OR LCC ONLY - WET PREP 2023-12-07 16:02:00 Richard Goldman [facility] POCT URINALYSIS GLUCOSE & PROTEIN 2023-12-04 14:47:00 Lew Mishra [facility] US BIOPHYSICAL PROFILE 2023-11-28 16:15:34 Keisha Alas [facility] POCT URINALYSIS 2023-11-27 14:08:00 Lew Mishra [facility] POCT URINALYSIS 2023-11-20 15:43:00 Lew Mishra [facility] POCT URINALYSIS 2023-11-06 20:06:00 Lew Mishra [facility] SECOND AND THIRD TRIMESTER ULTRASOUND 2023-10-23 19:13:28 Doctor Unassigned, [facility] POCT URINALYSIS 2023-10-23 14:49:00 Lew Mishra [facility] POCT URINALYSIS 2023-10-09 15:17:00 Lew Mishra [facility] URINALYSIS 2023-09-26 15:47:00 Adum, Tammy Terry [facility] ADC ONLY - FERN TEST 2023-09-26 15:47:00 AdumTammy [facility] ASSIGNMENT OF BENEFITS 2023-09-26 15:00:16 Docto r Unassigned, [facility] CONSENT/REFUSAL FOR DIAGNOSIS AND TREATMENT 2023-09-26 14:59:30 Doctor Unassigned, [facility] TDAP VACCINE, >11 YRS, IM 2023-09-25 17:14:49 Lew Mishra [facility] POCT URINALYSIS 2023-09-25 17:05:00 Lew Mishra [facility] 3 HR GLUCOSE TOLERANCE TEST 2023-09-11 17:06:00 Lew Mishra [facility] CBC WITH DIFF 2023-09-11 17:06:00 Lew Mishra [facility] 2 HR GLUCOSE TOLERANCE TEST 2023-09-11 15:55:00 Lew Mishra [facility] 1 HR GLUCOSE TOLERANCE TEST 2023-09-11 14:52:00 Lew Mishra [facility] GLUCOSE FASTING 2023-09-11 13:53:00 Lew Mishra [facility] 3 HR GLUCOSE TOLERANCE PANEL 2023-09-11 13:53:00 Lew Mishra [facility] POCT URINALYSIS 2023-08-21 15:57:00 Lew Mishra [facility] RAPID INFLUENZA A/B 2023-08-06 04:57:00 Bishop Keisha [facility] COVID-19 (ID NOW RAPID TESTING) 2023-08-06 04:57:00 Bishop Keisha [facility] NOTICE OF PRIVACY PRACTICES 2023-08-06 04:05:32 Doctor Unassigned, [facility] CONSENT/REFUSAL FOR DIAGNOSIS AND TREATMENT 2023-08-06 04:03:37 Doctor Unassigned, [facility] POCT URINALYSIS 2023-07-24 20:11:00 Lew Mishra [facility] SECOND AND THIRD TRIMESTER ULTRASOUND 2023-07-19 14:43:00 Lew Mishra [facility] CONSENT FOR NIPT 2023-07-02 06:01:00 Doctor Unas signed, [facility] POCT URINALYSIS 2023-06-04 13:51:00 Lew Mishra [facility] FIRST TRIMESTER ULTRASOUND 2023-05-21 17:11:00 Lew Mishra [facility] POCT MOLECULAR STREP 2023-05-21 13:30:00 Orville Mishra [facility] POCT URINALYSIS 2023-05-21 00:00:00 Lew Mishra [facility] US FIRST TRIMESTER LESS THAN 14 WEEKS WITH TRANSVAGINAL 2023-04-25 02:35:00 Melissa Crum [facility] POCT TEST 2023-04-25 00:44:00 Janis Flores [facility] BASIC METABOLIC PANEL (NA, K, CL, CO2, GLUCOSE, BUN, CREATININE, CA) 2023-04-25 00:40:00 Melissa Crum [facility] TOTAL BETA HCG ASSAY 2023-04-25 00:40:00 Trace Flores [facility] CBC WITH DIFF 2023-04-25 00:40:[address] [facility] URINALYSIS 2023-04-25 00:40:00 Jing Flores [facility] CONSENT/REFUSAL FOR DIAGNOSIS AND TREATMENT 2023-04-24 23:59:01 Doctor Unassigned, [facility] GLUCOSE 1 HOUR POST PRANDIAL 2023-04-23 15:28:00 Lew Mishra [facility] CBC WITH DIFF 2023-04-23 15:28:00 Lew Mishra [facility] HEPATITIS B SURFACE ANTIGEN 2023-04-23 15:28:00 Lew Mishra [facility] HB INDIRECT ANTIGLOBULIN TEST 2023-04-23 15:28:00 Lew Mishra [facility] HIV 1/2 AG-AB WITH REFLEX 2023-04-23 15:28:00 Lew Mishra [facility] SYPHILIS IGG/IGM 2023-04-23 15:28:00 Prasanth Mishra [facility] POCT TEST 2023-04-23 14:02:00 Billy Mishra [facility] POCT URINALYSIS W/O SPECIFIC GRAVITY 2023-04-23 14:02:00 Lew Mishra [facility] ASSIGNMENT OF BENEFITS 2023-04-23 12:57:20 Docto r Unassigned, [facility] PAP SMEAR-LIQUID BASED-CP 2020-12-09 21:17:00 Tammy Lemons [facility] Encounters Start Date/Time End Date/Time Encounter Type Admission Type Attending Clinicians Care Facility Care Department Encounter ID Source 2023-11-28 11:50:14 Outpatient X [facility] [id number] [facility] 2024-08-06 10:45:00 2024-08-06 10:45:00 Outpatient R JONES RICHARD CLARKE [facility] [id number] [facility] 2024-05-08 00:00:00 2024-05-08 10:36:46 Letter (Out) [facility] ([place]) 1.2.840.114 350.1.13.10 [id number] [id number] [facility] 2024-05-06 00:00:00 2024-05-06 13:57:23 Case Management Richard Goldman [facility] [id number] 350.1.13.10 [id number] [id number] 134 [id number] [facility] 2024-05-06 10:30:00 2024-05-06 10:45:00 Green Chain Puller Visit 2, Adc Lab Goldman Richard Short 2, Adc Lab [facility] 1.2.840.114 350.1.13.10 4.2.7.2.686 [id number] [facility] 2024-05-06 10:30:00 2024-05-06 10:30:00 Outpatient R GOLDMAN RICHARD CLARKE [facility] [id number] [facility] 2024-05-06 10:00:00 2024-05-06 10:24:41 Office Visit GoldmanAmyvon Short [facility] 1.2.840.114 350.1.13.10 4.2.7.2.686 [id number] 134 [id number] [facility] 2024-05-04 08:30:00 2024-05-04 08:30:00 Outpatient R RICHARD GOLDMAN RICHARD [facility] [id number] [facility] 2024-04-07 00:00:00 2024-04-07 09:37:21 Telephone Richard Goldman [facility] 1.2.840.114 350.1.13.10 4.2.7.2.686 [id number] 134 [id number] [facility] 2024-04-06 00:00:00 2024-04-06 19:08:29 Case Management Richard Goldman [facility] 1.2.840.114 350.1.13.10 4.2.7.2.686 [id number] [facility] 2024-04-06 13:30:00 2024-04-06 13:30:00 Green Chain Puller Visit 2, Adc Lab Richard Goldman 2, Adc Lab [facility] 1.2.840.114 350.1.13.10 4.2.7.2.686 [id number] [facility] 2024-04-06 13:30:00 2024-04-06 11:32:30 Outpatient R RICHARD GOLDMAN VIEN [facility] [id number] [facility] 2024-04-06 11:00:00 2024-04-06 11:20:31 Office Visit Richard Goldman [facility] 1.2.840.114 350.1.13.10 4.2.7.2.686 [id number] 134 [id number] [facility] 2024-03-27 10:15:00 2024-03-27 10:15:00 Outpatient R RICHARD GOLDMAN VIEN [facility] [id number] [facility] 2024-03-08 00:00:00 2024-03-18 13:42:04 Patient Secure Msg Richard Goldman [facility] 1.2.840.114 350.1.13.10 4.2.7.2.686 [id number] [facility] 2024-02-24 13:00:00 2024-02-24 13:08:20 Outpatient R RICHARD GOLDMAN VI[facility] [id number] [facility] 2024-02-24 13:00:00 2024-02-24 13:08:20 Office Visit Richard Goldman [facility] 1.2.840.114 350.1.13.10 4.2.7.2.686 [id number] [facility] 2024-01-20 11:15:00 2024-01-20 11:48:07 Outpatient R RICHARD GOLDMAN [facility] [id number] [facility] 2024-01-20 11:15:00 2024-01-20 11:48:07 Routine Visit Richard Goldman [facility] 1.2.840.114 350.1.13.10 4.2.7.2.686 [id number] [facility] 2023-12-16 10:30:00 2023-12-16 10:30:00 Nurse Visit Nurse, [facility] Richard Goldman [facility] 1.2.840.114 350.1.13.10 4.2.7.2.686 [id number] [facility] 2023-12-16 10:30:00 2023-12-16 10:29:46 Outpatient R RICHARD GOLDMAN [facility] [id number] [facility] 2023-11-09 00:00:00 2023-12-14 18:09:25 Patient Secure Msg Lew Mishra [facility] [employer] VAULT SERVICE MECHANIC [facility] 1.2.840.114 350.1.13.10 4.2.7.2.686 [id number] 107 [id number] [facility] 2023-12-11 03:54:00 2023-12-13 12:25:00 Hospital Encounter Richard Goldman [facility] 1.2.840.114 350.1.13.10 4.2.7.2.686 [id number] [id number] [facility] 2023-12-11 03:54:00 2023-12-13 12:25:00 Inpatient P RICHARD GOLDMAN [facility] [place] [id number] [facility] 2023-12-12 20:01:59 2023-12-12 20:01:59 Anesthesia Event Jac Prado [facility] 1.2.840.114 350.1.13.10 4.2.7.2.686 [id number] [id number] [facility] 2023-12-11 12:05:00 2023-12-12 01:00:00 Anesthesia Event Jessica Gail July, [place] [facility] 1.2840.114 350.1.13.10 4.2.7.2.686 [id number] [id number] [facility] 2023-12-10 09:30:00 2023-12-10 09:55:47 Outpatient R RICHARD GOLDMAN [facility] [id number] [facility] 2023-12-10 09:30:00 2023-12-10 09:55:47 Initial Visit Richard Goldman [facility] 1.2840.114 350.1.13.10 4.2.7.2.686 [id number] [facility] 2023-12-07 10:29:00 2023-12-07 12:20:00 Outpatient X RICHARD GOLDMAN [facility] [place] [id number] [facility] 2023-12-07 10:29:00 2023-12-07 12:20:00 Emergency Richard Goldman [facility] 1.2840.114 350.1.13.10 4.2.7.2.686 [id number] [id number] [facility] 2023-12-04 09:30:00 2023-12-04 11:47:23 Outpatient R LEW MISHRA [facility] [id number] [facility] 2023-12-04 09:30:00 2023-12-04 11:47:23 Routine Visit Lew Mishra [facility] SAFE AND VAULT SERVICE MECHANIC [facility] & CHILD [facility] 1.2.840.114 350.1.13.10 4.2.7.2.686 [id number] [facility] 2023-11-28 08:39:00 2023-11-28 11:39:00 Outpatient X GUTIÉRREZ-JORGE S, KEISHA GUTIÉRREZ-JORGE S, KEISHA [facility] [place] [id number] [facility] 2023-11-28 08:39:00 2023-11-28 11:39:00 Emergency Gutiérrez-Jorge s, Keisha [facility] 1.0.114 350.1.13.10 4.2.7.2.686 [id number] [facility] 2023-11-27 09:00:00 2023-11-27 09:17:42 Outpatient R LEW MISHRA [facility] [id number] [facility] 2023-11-27 09:00:00 2023-11-27 09:17:42 Routine Visit Lew Mishra [facility] SAFE AND VAULT SERVICE MECHANIC [facility] & CHILD [facility] 1.840.114 350.1.13.10 4.2.7.2.686 [id number] [facility] 2023-11-25 00:00:00 2023-11-25 00:00:00 Telephone Lew Mishra [facility] SAFE AND VAULT SERVICE MECHANIC [facility] & CHILD [facility] 1.2840.114 350.1.13.10 4.2.7.2.686 [id number] [facility] 2023-11-20 10:45:00 2023-11-20 11:36:28 Outpatient R LEW MISHRA [facility] [id number] [facility] 2023-11-20 10:45:00 2023-11-20 11:36:28 Routine Visit AndrewsoniaceliLew Sandra [facility] SAFE AND VAULT SERVICE MECHANIC [facility] & CHILD [facility] 1.2.840.114 350.1.13.10 4.2.7.2.686 [id number] [facility] 2023-11-06 15:00:00 2023-11-06 15:25:12 Outpatient R ANDREWSONIACELI LEW [facility] [id number] [facility] 2023-11-06 15:00:00 2023-11-06 15:25:12 Routine Visit AndrewLew joyce [facility] SAFE AND VAULT SERVICE MECHANIC [facility] & CHILD [facility] 1.2.840.114 350.1.13.10 4.2.7.2.686 [id number] [facility] 2023-10-25 00:00:00 2023-10-25 00:00:00 Abstract Lew Mishra [facility] SAFE AND VAULT SERVICE MECHANIC [facility] & CHILD [facility] 1.2.840.114 350.1.13.10 4.2.7.2.686 [id number] [facility] 2023-10-23 09:45:00 2023-10-23 10:05:29 Routine Visit Lew Mishra [facility] SAFE AND VAULT SERVICE MECHANIC [facility] & CHILD [facility] 1.2.840.114 350.1.13.10 4.2.7.2.686 [id number] [facility] 2023-10-23 09:00:00 2023-10-23 10:05:23 Outpatient ODESSA BIRMINGHAM KARIN [facility] [id number] [facility] 2023-10-23 09:00:00 2023-10-23 10:05:23 Green Chain Puller Visit Ultrasound, Odessa Cooper [facility] SAFE AND VAULT SERVICE MECHANIC [facility] & CHILD [facility] 1..840.114 350.1.13.10 4.2.7.2.686 [id number] [facility] 2023-10-09 10:15:00 2023-10-09 10:52:54 Outpatient R LEW MISHRA [facility] [id number] [facility] 2023-10-09 10:15:00 2023-10-09 10:52:54 Routine Visit Lew Mishra [facility] SAFE AND VAULT SERVICE MECHANIC [facility] & CHILD [facility] 1..840.114 350.1.13.10 4.2.7.2.686 [id number] [facility] 2023-09-26 09:17:00 2023-09-26 12:25:00 Outpatient X ADUMTAMMY [facility] [id number] [facility] 2023-09-26 09:17:00 2023-09-26 12:25:00 Emergency AdumTammy [facility] 1..840.114 350.1.13.10 4.2.7.2.686 [id number] [facility] 2023-09-25 11:00:00 2023-09-25 11:14:18 Outpatient R LEW MISHRA [facility] [id number] [facility] 2023-09-25 11:00:00 2023-09-25 11:14:18 Routine Visit Lew Mishra [facility] SAFE AND VAULT SERVICE MECHANIC [facility] & CHILD [facility] 1..840.114 350.1.13.10 4.2.7.2.686 [id number] [facility] 2023-09-11 07:45:00 2023-09-11 11:08:08 Outpatient R LEW MISHRA [facility] [id number] [facility] 2023-09-11 07:45:00 2023-09-11 11:08:08 Routine Visit Lew Mishra [facility] SAFE AND VAULT SERVICE MECHANIC [facility] & CHILD [facility] 1.2.840.114 350.1.13.10 4.2.7.2.686 [id number] [facility] 2023-08-21 09:45:00 2023-08-21 10:29:05 Outpatient R LEW MISHRA [facility] [id number] [facility] 2023-08-21 09:45:00 2023-08-21 10:29:05 Routine Visit Lew Mishra [facility] SAFE AND VAULT SERVICE MECHANIC [facility] & CHILD [facility] 1.2840.114 350.1.13.10 4.2.7.2.686 [id number] [facility] 2023-08-05 22:18:00 2023-08-06 00:38:00 Outpatient P CECELIA Hatfield, KEISHA KEISHA ROSENBERG [facility] [place] [id number] [facility] 2023-08-05 22:18:00 2023-08-06 00:38:00 Hospital Encounter Keisha Rosenberg [facility] 1.2840.114 350.1.13.10 4.2.7.2.686 [id number] [facility] 2023-08-05 00:00:00 2023-08-05 00:00:00 Orders Only Doctor Unassigned, Nabesna [facility] 1.2840.114 350.1.13.10 4.2.7.2.686 [id number] [facility] 2023-07-25 00:00:00 2023-07-25 00:00:00 Abstract Lew Mishra [facility] SAFE AND VAULT SERVICE MECHANIC [facility] MATERNAL & CHILD [facility] 1..840.114 350.1.13.10 4.2.7.2.686 [id number] 107 [id number] [facility] 2023-07-24 14:15:00 2023-07-24 15:12:34 Outpatient R LEW MISHRA [facility] [id number] [facility] 2023-07-24 14:15:00 2023-07-24 15:12:34 Routine Visit Lew Mishra [facility] SAFE AND VAULT SERVICE MECHANIC [facility] & CHILD [facility] 1..840.114 350.1.13.10 4.2.7.2.686 [id number] 107 [id number] [facility] 2023-07-19 08:00:00 2023-07-19 08:46:35 Outpatient P CHELE ARIAS SHANNON [facility] [id number] [facility] 2023-07-19 08:00:00 2023-07-19 08:46:35 Green Chain Puller Visit Ultrasound, Chele Ferrara [facility] SAFE AND VAULT SERVICE MECHANIC [facility] & CHILD [facility] 1..840.114 350.1.13.10 4.2.7.2.686 [id number] [facility] 2023-07-02 09:30:00 2023-07-02 09:45:00 Green Chain Puller Visit Pob, Julio Lab Main Lew Mishra [facility] 1..840.114 350.1.13.10 4.2.7.2.686 [id number] [facility] 2023-07-02 07:45:00 2023-07-02 09:03:44 Outpatient R LEW MISHRA [facility] [id number] [facility] 2023-07-02 07:45:00 2023-07-02 09:03:44 Routine Visit Lew Mishra [facility] SAFE AND VAULT SERVICE MECHANIC [facility] & CHILD [facility] 1..114 350.1.13.10 4.2.7.2.686 [id number] 107 [id number] [facility] 2023-07-02 00:00:00 2023-07-02 00:00:00 Refill Lew Mishra [facility] SAFE AND VAULT SERVICE MECHANIC [facility] & [facility]ILD [facility] 1.0.114 350.1.13.10 4.2.7.2.686 [id number] [facility] 2023-07-02 00:00:00 2023-07-02 00:00:00 Orders Only Doctor Unassigned, Nabesna [facility] 1.840.114 350.1.13.10 4.2.7.2.686 [id number] [facility] 2023-06-04 07:45:00 2023-06-04 08:14:55 Outpatient R LEW MISHRA [facility] [id number] [facility] 2023-06-04 07:45:00 2023-06-04 08:14:55 Routine Visit Lew Mishra [facility] SAFE AND VAULT SERVICE MECHANIC [facility] & CHILD [facility] 1.84.114 350.1.13.10 4.2.7.2.686 [id number] [facility] 2023-05-29 15:15:00 2023-05-29 15:15:00 Outpatient R [facility] [id number] [facility] 2023-05-24 00:00:00 2023-05-24 00:00:00 Abstract Lew Mishra [facility] SAFE AND VAULT SERVICE MECHANIC [facility] & CHILD [facility] 1..114 350.1.13.10 4.2.7.2.686 [id number] 107 [id number] [facility] 2023-05-21 11:00:00 2023-05-21 15:32:26 Outpatient P SCOTT MERINO [facility] [id number] [facility] 2023-05-21 11:00:00 2023-05-21 15:32:26 Green Chain Puller Visit Ultrasound, ZaydaMfLew Wise Gay [facility] SAFE AND VAULT SERVICE MECHANIC [facility] & CHILD [facility] 1.2840.114 350.1.13.10 4.2.7.2.686 [id number] [facility] 2023-05-21 08:00:00 2023-05-21 08:29:21 Routine Visit Lew Mishra [facility] SAFE AND VAULT SERVICE MECHANIC [facility] & CHILD [facility] 1.2840.114 350.1.13.10 4.2.7.2.686 [id number] 107 [id number] [facility] 2023-05-03 00:00:00 2023-05-03 00:00:00 Telephone Lew Mishra [facility] SAFE AND VAULT SERVICE MECHANIC [facility] CHILD [facility] 1.0.114 350.1.13.10 4.2.7.2.686 [id number] 107 [id number] [facility] 2023-05-03 00:00:00 2023-05-03 00:00:00 Telephone Lew Mishra [facility] SAFE AND VAULT SERVICE MECHANIC [facility] & CHILD [facility] 1.2840.114 350.1.13.10 4.2.7.2.686 [id number] [facility] 2023-05-02 07:45:00 2023-05-02 08:12:40 Outpatient R LEW MISHRA [facility] [id number] [facility] 2023-05-02 07:45:00 2023-05-02 08:12:40 Green Chain Puller Visit Lab, Diallo-Rmchp Lew Mishra [facility] SAFE AND VAULT SERVICE MECHANIC [facility] & CHILD [facility] 1.2.840.114 350.1.13.10 4.2.7.2.686 [id number] 107 [id number] [facility] 2023-05-02 00:00:00 2023-05-02 00:00:00 Telephone Lew Mishra [facility] SAFE AND VAULT SERVICE MECHANIC [facility] & [facility]ILD [facility] 1.2.840.114 350.1.13.10 4.2.7.2.686 [id number] [facility] 2023-04-24 19:09:00 2023-04-24 22:45:00 Emergency X MELISSA CRUM [facility] ERT [id number] [facility] 2023-04-24 19:09:00 2023-04-24 22:45:00 Emergency Flores, JingMelissa Anderson [facility] 1.2.840.114 350.1.13.10 4.2.7.2.686 [id number] [facility] 2023-04-24 00:00:00 2023-04-24 00:00:00 Telephone Lew Mishra [facility] SAFE AND VAULT SERVICE MECHANIC [facility] 1.2.840.114 350.1.13.10 4.2.7.2.686 [id number] 107 [id number] [facility] 2023-04-24 00:00:00 2023-04-24 00:00:00 Telephone Lew Mishra [facility] SAFE AND VAULT SERVICE MECHANIC [facility] & CHILD [facility] 1.2.840.114 350.1.13.10 4.2.7.2.686 [id number] [facility] 2023-04-23 08:30:00 2023-04-23 10:08:18 Initial Visit Lew Mishra [facility] SAFE AND VAULT SERVICE MECHANIC [facility] & CHILD [facility] 1.2.840.114 350.1.13.10 4.2.7.2.686 [id number] [facility] 2023-04-23 08:00:00 2023-04-23 08:57:31 Outpatient R LEW MISHRA [facility] [id number] [facility] 2023-04-23 00:00:00 2023-04-23 00:00:00 Orders Only Doctor Unassigned, Nabesna [facility] 1.114 350.1.13.10 4.2.7.2.686 [id number] [facility] 2020-12-14 15:30:22 2020-12-14 15:45:22 Green Chain Puller Visit 2, Adc Lab Adj[facility] 1.114 350.1.13.10 4.2.7.2.686 [id number] [facility] 2020-12-14 15:30:00 2020-12-14 15:30:00 Outpatient R [facility] [id number] [facility] 2020-12-09 15:20:33 2020-12-09 16:21:14 Office Visit Ludinjinny [facility] 1.114 350.1.13.10 4.2.7.2.686 [id number] [facility] 2020-12-09 15:30:00 2020-12-09 15:30:00 Outpatient R NICK [facility] [id number] [facility] 2020-11-22 15:30:00 2020-11-22 15:30:00 Outpatient R NICK [facility] [id number] [facility] 2020-04-10 13:58:37 2020-04-10 14:13:39 Laboratory Only Lab, Adc [facility] Betsy Bradford [facility] Office Building One .114 350.1.13.10 4.2.7.2.686 [id number] [facility] 2020-04-10 14:00:00 2020-04-10 14:00:00 Outpatient BETSY PALMER [facility] [id number] [facility] Results Test Description Test Time Test Comments Results Result Co mments Source [facility] Uwioqaredqhj3505-33-21 12:42:04* Test Item Value Reference Range Interpretation Comme nts WBC (test code = 6690-2) 18.18 4.30-11.10 H RBC (test code = 789-8) 3.88 3.93-5.25 L HGB (test code = 718-7) 10.9 g/dL 11.6-15.0 L HCT (test code = 4544-3) 33.3 % 35.7-45.2 L MCV (test code = 787-2) 85.8 fL 80.6-95.5 MCH (test code = 785-6) 28.1 pg 25.9-32.8 MCHC (test code = 786-4) 32.7 g/dL 31.6-35.1 RDW-SD (test code = 45064-2) 40.0 fL 39.0-49.9 RDW-CV (test code = 788-0) 13.1 % 12.0-15.5 PLT (test code = 777-3) 265 166-358 MPV (test code = 79160-5) 11.4 fL 9.5-12.9 NRBC/100 WBC (test code = 7731153886) 0.0 0.0-10.0 NRBC x10^3 (test code = 6385201616) See_Comment [Automated message] The system which generated this result transmitted reference range: 10*3/?L. The reference range was not used to interpret this result as normal/abnormal. GRAN MAT (NEUT) % (test code = 770-8) 79.3 % IMM GRAN % (test code = 5897786327) 0.70 % LYMPH % (test code = 736-9) 15.0 % MONO % (test code = 5905-5) 4.7 % EOS % (test code = 713-8) 0.1 % BASO % (test code = 706-2) 0.2 % GRAN MAT x10^3(ANC) (test code = 8005206771) 14.41 10*3/uL 1.88-7.09 H IMM GRAN x10^3 (test code = 6239170145) 0.13 10*3/uL 0.00-0.06 H LYMPH x10^3 (test code = 731-0) 2.73 10*3/uL 1.32-3.29 MONO x10^3 (test code = 742-7) 0.85 10*3/uL 0.33-0.92 EOS x10^3 (test code = 711-2) 0.03-0.39 L BASO x10^3 (test code = 704-7) 0.04 10*3/uL 0.01-0.07 Lab Interpretation (test code = 96964-5) Abnormal [facility]) IMMUNE [id number] 07:56:17* Test Item Value Reference Range Interpretation Comme nts RHIG CANDIDATE? (test code = 5188) No- see comment Patient is not a candidate for RhIg- Patient is Rh Positive.Performed at [facility] Laboratory Services - [facility] Blood [address] [place] [id number] Free: [phone] No. [id number] [facility] OR WILLAM WILKS - [id number] 04:10:02* Test Item Value Reference Range Interpretation Comme nts RPR (Qualitative) (test code = 50580-8) Nonreactive Nonreactive Lab Interpretation (test cod e = 95233-7) Normal [facility] Center[facility] Acid Hocps2525-87-86 01:45:31* Test Item Value Reference Range Interpretation Comme nts URIC ACID (test code = 6287055163) 5.6 mg/dL 2.9-6.0 Lab Interpretation (test cod e = 48508-2) Normal [facility] Center[facility] Amino Transferase (SGPT)2023-12-12 01:45:31* Test Item Value Reference Range Interpretation Comme nts ALTv (test code = 1742-6) 17 U/L 5-35 Lab Interpretation (test cod e = 98176-7) Normal [facility] Amngvwaqfq3406-39-93 01:45:16* Test Item Value Reference Range Interpretation Comme nts CREATININE (test code = 2160-0) 0.56 mg/dL 0.50-1.04 eGFR (test code = 47104-9) 129.3 mL/min/1.73m2 CKD-EPI eGFR (20 21). Assuming creatinine has been stable day-to-day for at least three months, the eGFR indicates Category G1 (>= 90 mL/min/1.73 m2) [facility] (Asparate Amino Transfer)2023-12-12 01:45:16* Test Item Value Reference Range Interpretation Comme nts AST(SGOT) (test code = 7848396127) 30 U/L 13-40 Lab Interpretation (test cod e = 91404-5) Normal [facility] Auvlp7776-44-77 17:30:00 Gail Lopez MD ? ? 12/11/2023 12:31 PM Central Neuraxial Block Date/Time: 12/11/2023 12:30 PM Performed by: Gail Lopez MDAuthorized by: Gail Lopez MD ?Patient Location: OBReason for Block: OB request, Patient request, Labor analgesia, Surgical anesthesia and Post-op pain managementStaff: ?Anesthesiologist: Gail Lopez MD ?Performed by: anesthesiologistPreanesthetic Checklist: patient identified, IV checked, risks and benefits explained, monitors and equipment checked, timeout performed, pre- op evaluation, site marked, anesthesia consent, ob/surgical consent verified and surgical consentProcedure: ?Type of Neuraxial: Epidural ?Epidural Description: 1st attempt ? SterilityPrep drape, gloves, hand hygiene and mask ? ?Sedation Level no sedation ?Patient Position: sitting ?Prep: Betadine and patient draped ? ?Monitoring: heart rate, continuous pulse ox, heart rate / toco and NIBP ?Location: lumbar (1-5) ?Lumbar: L3-L4 ?Approach: midline ? ?Technique: catheter andLOR saline ?Guidance with: landmark technique}Epidural/Spinal Anchorage and/or Catheter: ?Epidural/Spinal Kit: BBraun ?Needle Type: Tuohy ?Needle Gauge: 17 G ?Needle Length: 3.5 in (8.89 cm) ?Needle Insertion Depth: 5.5 ?Catheter Type: multiport ? ?Catheter Size: 19 G ? ?Catheter at Skin Depth: 11 ?Number of Attempts: 1 ?Test Dose: lidocaine 1.5% with epinephrine 1-to-200,000 and negative ? ?Dose: 3 cc ? ?Catheter Securement Method: surgical tape, Tegaderm and clear occlusive dressingAssessment: ?Sensory Level: above T10 ?Thoracic: T8 ?Block Outcome: positive pain relief ? ?Procedure Assessment: patient tolerated procedure well with no complicationsNotes: ? Smooth and atraumatic, (+) Local, (+) STFUniversThe [facility] of [facility] TexasHepatitis B Surface [id number] 16:00:54* Test Item Value Reference Range Interpretation Comme nts HBsAg Semi-Quantitative (charlie t code = 5195-3) 0.08 Negative [facility] with [id number] 12:29:30* Test Item Value Reference Range Interpretation Comme nts HIV Semi-quantitative (test code = 34953-1) 0.14 Negative BRENDAN (test code = BRENDAN) Non-reactive for HIV-1 antigen and HIV-1/HIV-2 antibodies. ?No laboratory evidence of HIV infection. ?Repeat in 2-4 weeks if acute HIV infection is suspected. [facility] CenterCBC with [id number] 10:48:58* Test Item Value Reference Range Interpretation Comme nts WBC (test code = 6690-2) 11.82 4.30-11.10 H RBC (test code = 789-8) 3.70 3.93-5.25 L HGB (test code = 718-7) 10.6 g/dL 11.6-15.0 L HCT (test code = 4544-3) 32.4 % 35.7-45.2 L MCV (test code = 787-2) 87.6 fL 80.6-95.5 MCH (test code = 785-6) 28.6 pg 25.9-32.8 MCHC (test code = 786-4) 32.7 g/dL 31.6-35.1 RDW-SD (test code = 76779-6) 40.3 fL 39.0-49.9 RDW-CV (test code = 788-0) 12.9 % 12.0-15.5 PLT (test code = 777-3) 273 166-358 MPV (test code = 42976-5) 11.2 fL 9.5-12.9 NRBC/100 WBC (test code = 1274672754) 0.0 0.0-10.0 NRBC x10^3 (test code = 6853594951) See_Comment [Automated messa ge] The system which generated this result transmitted reference range: 10*3/?L. The reference range was not used to interpret this result as normal/abnormal. GRAN MAT (NEUT) % (test code = 770-8) 55.4 % IMM GRAN % (test code = 5956067992) 1.00 % LYMPH % (test code = 736-9) 34.9 % MONO % (test code = 5905-5) 7.4 % EOS % (test code = 713-8) 0.8 % BASO % (test code = 706-2) 0.5 % GRAN MAT x10^3(ANC) (test code = 0364468408) 6.55 10*3/uL 1.88-7.09 IMM GRAN x10^3 (test code = 0896719288) 0.12 10*3/uL 0.00-0.06 H LYMPH x10^3 (test code = 731-0) 4.13 10*3/uL 1.32-3.29 H MONO x10^3 (test code = 742-7) 0.87 10*3/uL 0.33-0.92 EOS x10^3 (test code = 711-2) 0.09 10*3/uL 0.03-0.39 BASO x10^3 (test code = 704-7) 0.06 10*3/uL 0.01-0.07 Lab Interpretation (test code = 96253-2) [facility] [id number] 09:55:00 * Test Item Value Reference Range Interpretation Comme nts ABO & RH (test code = 20) B POSITIVE IAT (test code = 1185) Negative [facility]o Specific [id number] 14:45:00* Test Item Value Reference Range Interpretation Comme nts POCT PH U (test code = 3254) n/a 5-8 POCT U LEUK EST (test code = 3263) n/a Negative - Negative POCT U NIT (test code = 3262) n/a Negative - Negati ve POCT U PROT (test code = 3259) Negative Negative - Negat [place]orothea POCT U GLU (test code = 3256) Normal Negative - Negati ve POCT U KETONE (test code = 3258) n/a Negative - Neg ative POCT U BLD (test code = 3257) n/a Negative - Negati ve [facility] Urinalysis Glucose & [id number] 14:48:00* Test Item Value Reference Range Interpretation Comme nts POCT U PROT (test code = 3259) trace Negative - Negat [place]or[place]a POCT U GLU (test code = 3256) neg Negative - Negati ve [facility] BIOPHYSICAL [id number] 16:21:25HISTORY: tachycardia. Check well-being. FINDINGS: * breathing movements: More than 1 episode episode visualized under30 minutes.*Gross body movements: 3 separate body movements confirmed in 30 minutes.*Body muscle tone: Extremity tone visualized.*Amniotic fluid volume: 9.59 cm. BPP score is 8 of 8. heart rate was 144 BPM.[facility] URINALYSIS W SPECIFIC [id number] 14:08:00* Test Item Value Reference Range Interpretation Comme nts POCT U SP GRAV (test code = 3255) . 1.005-1.025 POCT PH U (test code = 3254) . 5-8 POCT U LEUK EST (test code = 3263) . Negative - N egative POCT U NIT (test code = 3262) . Negative - Negati ve POCT U PROT (test code = 3259) trace Negative - Negat [place]or[place]a POCT U GLU (test code = 3256) neg Negative - Negati ve POCT U KETONE (test code = 3258) . Negative - Neg ative POCT U UROBILI (test code = 3260) . 0.2-1 POCT U BILI (test code = 3261) . Negative - Negat [place]or[place] POCT U BLD (test code = 3257) . Negative - Negati ve POCT U COLOR (test code = 3266) . POCT U APPEAR (test code = 3267) . [facility] URINALYSIS W SPECIFIC [id number] 15:44:00* Test Item Value Reference Range Interpretation Comme nts POCT U SP GRAV (test code = 3255) . 1.005-1.025 POCT PH U (test code = 3254) . 5-8 POCT U LEUK EST (test code = 3263) . Negative - N egative POCT U NIT (test code = 3262) . Negative - Negati ve POCT U PROT (test code = 3259) trace Negative - Negat [place] POCT U GLU (test code = 3256) neg Negative - Negati ve POCT U KETONE (test code = 3258) . Negative - Neg ative POCT U UROBILI (test code = 3260) . 0.2-1 POCT U BILI (test code = 3261) . Negative - Negat [place] POCT U BLD (test code = 3257) . Negative - Negati ve POCT U COLOR (test code = 3266) . POCT U APPEAR (test code = 3267) . [facility] URINALYSIS W SPECIFIC [id number] 15:44:00* Test Item Value Reference Range Interpretation Comme nts POCT U SP GRAV (test code = 3255) . 1.005-1.025 POCT PH U (test code = 3254) . 5-8 POCT U LEUK EST (test code = 3263) . Negative - N egative POCT U NIT (test code = 3262) . Negative - Negati ve POCT U PROT (test code = 3259) trace Negative - Negat [place] POCT U GLU (test code = 3256) neg Negative - Negati ve POCT U KETONE (test code = 3258) . Negative - Neg ative POCT U UROBILI (test code = 3260) . 0.2-1 POCT U BILI (test code = 3261) . Negative - Negat [place] POCT U BLD (test code = 3257) . Negative - Negati ve POCT U COLOR (test code = 3266) . POCT U APPEAR (test code = 3267) . [facility] URINALYSIS W SPECIFIC [id number] 15:44:00* Test Item Value Reference Range Interpretation Comme nts POCT U SP GRAV (test code = 3255) . 1.005-1.025 POCT PH U (test code = 3254) . 5-8 POCT U LEUK EST (test code = 3263) . Negative - N egative POCT U NIT (test code = 3262) . Negative - Negati ve POCT U PROT (test code = 3259) trace Negative - Negat [place] POCT U GLU (test code = 3256) neg Negative - Negati ve POCT U KETONE (test code = 3258) . Negative - Neg ative POCT U UROBILI (test code = 3260) . 0.2-1 POCT U BILI (test code = 3261) . Negative - Negat [place] POCT U BLD (test code = 3257) . Negative - Negati ve POCT U COLOR (test code = 3266) . POCT U APPEAR (test code = 3267) . [facility] URINALYSIS W SPECIFIC [id number] 20:06:00* Test Item Value Reference Range Interpretation Comme nts POCT U SP GRAV (test code = 3255) . 1.005-1.025 POCT PH U (test code = 3254) . 5-8 POCT U LEUK EST (test code = 3263) . Negative - N egative POCT U NIT (test code = 3262) . Negative - Negati ve POCT U PROT (test code = 3259) trace Negative - Negat [place] POCT U GLU (test code = 3256) neg Negative - Negati ve POCT U KETONE (test code = 3258) . Negative - Neg ative POCT U UROBILI (test code = 3260) . 0.2-1 POCT U BILI (test code = 3261) . Negative - Negat [place] POCT U BLD (test code = 3257) . Negative - Negati ve POCT U COLOR (test code = 3266) . POCT U APPEAR (test code = 3267) . [facility] URINALYSIS W SPECIFIC [id number] 20:06:00* Test Item Value Reference Range Interpretation Comme nts POCT U SP GRAV (test code = 3255) . 1.005-1.025 POCT PH U (test code = 3254) . 5-8 POCT U LEUK EST (test code = 3263) . Negative - N egative POCT U NIT (test code = 3262) . Negative - Negati ve POCT U PROT (test code = 3259) trace Negative - Negat [place] POCT U GLU (test code = 3256) neg Negative - Negati ve POCT U KETONE (test code = 3258) . Negative - Neg ative POCT U UROBILI (test code = 3260) . 0.2-1 POCT U BILI (test code = 3261) . Negative - Negat [place] POCT U BLD (test code = 3257) . Negative - Negati ve POCT U COLOR (test code = 3266) . POCT U APPEAR (test code = 3267) . [facility] URINALYSIS W SPECIFIC [id number] 20:06:00* Test Item Value Reference Range Interpretation Comme nts POCT U SP GRAV (test code = 3255) . 1.005-1.025 POCT PH U (test code = 3254) . 5-8 POCT U LEUK EST (test code = 3263) . Negative - N egative POCT U NIT (test code = 3262) . Negative - Negati ve POCT U PROT (test code = 3259) trace Negative - Negat [place] POCT U GLU (test code = 3256) neg Negative - Negati ve POCT U KETONE (test code = 3258) . Negative - Neg ative POCT U UROBILI (test code = 3260) . 0.2-1 POCT U BILI (test code = 3261) . Negative - Negat [place]or[place] POCT U BLD (test code = 3257) . Negative - Negati ve POCT U COLOR (test code = 3266) . POCT U APPEAR (test code = 3267) . [facility] 2023-10-23 19:13:28Ordered by an unspecified provider.[facility] URINALYSIS W SPECIFIC [id number] 14:49:00* Test Item Value Reference Range Interpretation Comme nts POCT U SP GRAV (test code = 3255) . 1.005-1.025 POCT PH U (test code = 3254) . 5-8 POCT U LEUK EST (test code = 3263) . Negative - N egative POCT U NIT (test code = 3262) . Negative - Negati ve POCT U PROT (test code = 3259) trace Negative - Negat [place] POCT U GLU (test code = 3256) neg Negative - Negati ve POCT U KETONE (test code = 3258) . Negative - Neg ative POCT U UROBILI (test code = 3260) . 0.2-1 POCT U BILI (test code = 3261) . Negative - Negat [place] POCT U BLD (test code = 3257) . Negative - Negati ve POCT U COLOR (test code = 3266) . POCT U APPEAR (test code = 3267) . [facility] URINALYSIS W SPECIFIC [id number] 15:17:00* Test Item Value Reference Range Interpretation Comme nts POCT U SP GRAV (test code = 3255) . 1.005-1.025 POCT PH U (test code = 3254) . 5-8 POCT U LEUK EST (test code = 3263) . Negative - N egative POCT U NIT (test code = 3262) . Negative - Negati ve POCT U PROT (test code = 3259) trace Negative - Negat [place] POCT U GLU (test code = 3256) neg Negative - Negati ve POCT U KETONE (test code = 3258) . Negative - Neg ative POCT U UROBILI (test code = 3260) . 0.2-1 POCT U BILI (test code = 3261) . Negative - Negat [place] POCT U BLD (test code = 3257) . Negative - Negati ve POCT U COLOR (test code = 3266) POCT U APPEAR (test code = 3267) [facility] URINALYSIS W SPECIFIC [id number] 17:05:00* Test Item Value Reference Range Interpretation Comme nts POCT U SP GRAV (test code = 3255) . 1.005-1.025 POCT PH U (test code = 3254) . 5-8 POCT U LEUK EST (test code = 3263) . Negative - N egative POCT U NIT (test code = 3262) . Negative - Negati ve POCT U PROT (test code = 3259) trace Negative - Negat [place] POCT U GLU (test code = 3256) neg Negative - Negati ve POCT U KETONE (test code = 3258) . Negative - Neg ative POCT U UROBILI (test code = 3260) . 0.2-1 POCT U BILI (test code = 3261) . Negative - Negat [place] POCT U BLD (test code = 3257) . Negative - Negati ve POCT U COLOR (test code = 3266) . POCT U APPEAR (test code = 3267) . [facility] URINALYSIS W SPECIFIC [id number] 15:57:00* Test Item Value Reference Range Interpretation Comme nts POCT U SP GRAV (test code = 3255) norm 1.005-1.025 POCT PH U (test code = 3254) . 5-8 POCT U LEUK EST (test code = 3263) . Negative - N egative POCT U NIT (test code = 3262) . Negative - Negati ve POCT U PROT (test code = 3259) trace Negative - Negat [place] POCT U GLU (test code = 3256) neg Negative - Negati ve POCT U KETONE (test code = 3258) . Negative - Neg ative POCT U UROBILI (test code = 3260) . 0.2-1 POCT U BILI (test code = 3261) . Negative - Negat [place] POCT U BLD (test code = 3257) . Negative - Negati ve POCT U COLOR (test code = 3266) POCT U APPEAR (test code = 3267) [facility] URINALYSIS W SPECIFIC [id number] 20:13:00* Test Item Value Reference Range Interpretation Comme nts POCT U SP GRAV (test code = 3255) . 1.005-1.025 POCT PH U (test code = 3254) . 5-8 POCT U LEUK EST (test code = 3263) . Negative - N egative POCT U NIT (test code = 3262) . Negative - Negati ve POCT U PROT (test code = 3259) trace Negative - Negat [place] POCT U GLU (test code = 3256) neg Negative - Negati ve POCT U KETONE (test code = 3258) . Negative - Neg ative POCT U UROBILI (test code = 3260) . 0.2-1 POCT U BILI (test code = 3261) . Negative - Negat [place] POCT U BLD (test code = 3257) . Negative - Negati ve POCT U COLOR (test code = 3266) . POCT U APPEAR (test code = 3267) . [facility] URINALYSIS W SPECIFIC [id number] 20:13:00* Test Item Value Reference Range Interpretation Comme nts POCT U SP GRAV (test code = 3255) . 1.005-1.025 POCT PH U (test code = 3254) . 5-8 POCT U LEUK EST (test code = 3263) . Negative - N egative POCT U NIT (test code = 3262) . Negative - Negati ve POCT U PROT (test code = 3259) trace Negative - Negat [place] POCT U GLU (test code = 3256) neg Negative - Negati ve POCT U KETONE (test code = 3258) . Negative - Neg ative POCT U UROBILI (test code = 3260) . 0.2-1 POCT U BILI (test code = 3261) . Negative - Negat [place] POCT U BLD (test code = 3257) . Negative - Negati ve POCT U COLOR (test code = 3266) . POCT U APPEAR (test code = 3267) . [facility] URINALYSIS W SPECIFIC [id number] 20:13:00* Test Item Value Reference Range Interpretation Comme nts POCT U SP GRAV (test code = 3255) . 1.005-1.025 POCT PH U (test code = 3254) . 5-8 POCT U LEUK EST (test code = 3263) . Negative - N egative POCT U NIT (test code = 3262) . Negative - Negati ve POCT U PROT (test code = 3259) trace Negative - Negat dor[place] POCT U GLU (test code = 3256) neg Negative - Negati ve POCT U KETONE (test code = 3258) . Negative - Neg ative POCT U UROBILI (test code = 3260) . 0.2-1 POCT U BILI (test code = 3261) . Negative - Negat [place] POCT U BLD (test code = 3257) . Negative - Negati ve POCT U COLOR (test code = 3266) . POCT U APPEAR (test code = 3267) . [facility] URINALYSIS W SPECIFIC [id number] 13:52:00* Test Item Value Reference Range Interpretation Comme nts POCT U SP GRAV (test code = 3255) . 1.005-1.025 POCT PH U (test code = 3254) . 5-8 POCT U LEUK EST (test code = 3263) . Negative - N egative POCT U NIT (test code = 3262) . Negative - Negati ve POCT U PROT (test code = 3259) trace Negative - Negat [place] POCT U GLU (test code = 3256) neg Negative - Negati ve POCT U KETONE (test code = 3258) . Negative - Neg ative POCT U UROBILI (test code = 3260) . 0.2-1 POCT U BILI (test code = 3261) . Negative - Negat [place] POCT U BLD (test code = 3257) . Negative - Negati ve POCT U COLOR (test code = 3266) . POCT U APPEAR (test code = 3267) . [facility] MOLECULAR [id number] 13:38:26* Test Item Value Reference Range Interpretation Comme nts POCT Molecular Strep (test c ode = 92228-1) Negative Negative Lab Interpretation (test cod e = 16208-8) Normal [facility] URINALYSIS W SPECIFIC [id number] 13:01:00* Test Item Value Reference Range Interpretation Comme nts POCT U SP GRAV (test code = 3255) . 1.005-1.025 POCT PH U (test code = 3254) . 5-8 POCT U LEUK EST (test code = 3263) . Negative - Negative POCT U NIT (test code = 3262) . Negative - Negati ve POCT U PROT (test code = 3259) trace Negative - Negat [place] POCT U GLU (test code = 3256) negative Negative - Negati ve POCT U KETONE (test code = 3258) . Negative - Neg ative POCT U UROBILI (test code = 3260) . 0.2-1 POCT U BILI (test code = 3261) . Negative - Negat [place] POCT U BLD (test code = 3257) . Negative - Negati ve POCT U COLOR (test code = 3266) . POCT U APPEAR (test code = 3267) . [facility] URINALYSIS W SPECIFIC [id number] 13:01:00* Test Item Value Reference Range Interpretation Comme nts POCT U SP GRAV (test code = 3255) . 1.005-1.025 POCT PH U (test code = 3254) . 5-8 POCT U LEUK EST (test code = 3263) . Negative - Negative POCT U NIT (test code = 3262) . Negative - Negati ve POCT U PROT (test code = 3259) trace Negative - Negat [place] POCT U GLU (test code = 3256) negative Negative - Negati ve POCT U KETONE (test code = 3258) . Negative - Neg ative POCT U UROBILI (test code = 3260) . 0.2-1 POCT U BILI (test code = 3261) . Negative - Negat [place] POCT U BLD (test code = 3257) . Negative - Negati ve POCT U COLOR (test code = 3266) . POCT U APPEAR (test code = 3267) . [facility] BHCG (QUANTITATIVE)2023-04-25 01:53:41* Test Item Value Reference Range Interpretation Comme nts BETA HCG (test code = 3752334198) 74599.00 See_Comment [Automated messa ge] The system which generated this result transmitted reference range: Non- female and male patients: <5 mIU/mL. The reference range was not used to interpret this result as normal/abnormal. BRENDAN (test code = BRENDAN) Gestational Age ?Range (mIU/mL) 1-10 ?Weeks ?[id number] Weeks ?[id number] Weeks ?[id number] Weeks ?[id number] Biotin has been reported to cause a negative bias, interpret results relative to patient's use of biotin. [facility] WITH [id number] 01:47:15* Test Item Value Reference Range Interpretation Comme nts WBC (test code = 6690-2) 9.34 See_Comment [Automated messa ge] The system which generated this result transmitted reference range: 4.30 - 11.10 10*3/?L. The reference range was not used to interpret this result as normal/abnormal. RBC (test code = 789-8) 4.78 See_Comment [Automated messa ge] The system which generated this result transmitted reference range: 3.93 - 5.25 10*6/?L. The reference range was not used to interpret this result as normal/abnormal. HGB (test code = 718-7) 15.1 g/dL 11.6-15.0 H HCT (test code = 4544-3) 43.3 % 35.7-45.2 MCV (test code = 787-2) 90.6 fL 80.6-95.5 MCH (test code = 785-6) 31.6 pg 25.9-32.8 MCHC (test code = 786-4) 34.9 g/dL 31.6-35.1 RDW-SD (test code = 91439-2) 41.1 fL 39.0-49.9 RDW-CV (test code = 788-0) 12.5 % 12.0-15.5 PLT (test code = 777-3) 371 See_Comment H [Automated messa ge] The system which generated this result transmitted reference range: 166 - 358 10*3/?L. The reference range was not used to interpret this result as normal/abnormal. MPV (test code = 53330-0) 9.2 fL 9.5-12.9 L NRBC/100 WBC (test code = 6946042265) 0.0 See_Comment [Automated me ssage] The system which generated this result transmitted reference range: 0.0 - 10.0 /100 WBCs. The reference range was not used to interpret this result as normal/abnormal. NRBC x10^3 (test code = 9483120991) See_Comment [Automated messa ge] The system which generated this result transmitted reference range: 10*3/?L. The reference range was not used to interpret this result as normal/abnormal. GRAN MAT (NEUT) % (test code = 770-8) 48.8 % IMM GRAN % (test code = 1769234165) 0.20 % LYMPH % (test code = 736-9) 43.9 % MONO % (test code = 5905-5) 6.0 % EOS % (test code = 713-8) 0.6 % BASO % (test code = 706-2) 0.5 % GRAN MAT x10^3(ANC) (test code = 4377118483) 4.55 10*3/uL 1.88-7.09 IMM GRAN x10^3 (test code = 9360371438) 0.00-0.06 LYMPH x10^3 (test code = 731-0) 4.10 10*3/uL 1.32-3.29 H MONO x10^3 (test code = 742-7) 0.56 10*3/uL 0.33-0.92 EOS x10^3 (test code = 711-2) 0.06 10*3/uL 0.03-0.39 BASO x10^3 (test code = 704-7) 0.05 10*3/uL 0.01-0.07 Lab Interpretation (test code = 59963-7) Abnormal [facility] METABOLIC PANEL (NA, K, CL, CO2, GLUCOSE, BUN, CREATININE, CA)2023-04-25 01:11:25* Test Item Value Reference Range Interpretation Comme nts NA (test code = 3777343727) 140 mmol/L 135-145 K (test code = 5690189463) 3.9 mmol/L 3.5-5.0 CL (test code = 9033898070) 103 mmol/L 98-108 CO2 TOTAL (test code = 7777764829) 25 mmol/L 23-31 AGAP (test code = 8969764206) 12 2-16 BUN (test code = 7724762981) 14 mg/dL 7-23 GLUCOSE (test code = 8213294142) 95 mg/dL 70-110 CREATININE (test code = 7181037865) 0.48 mg/dL 0.50-1.04 L CALCIUM (test code = 8940512506) 9.9 mg/dL 8.6-10.6 eGFR (test code = 5905303657) 157.6 mL/min/1.73m2 BRENDAN (test code = BRENDAN) Association of [...] or abnormalities in imaging tests). Lab Interpretation (test code = 66418-6) Abnormal [facility] [id number] 00:44:00* Test Item Value Reference Range Interpretation Comme nts POCT PREG (test code = 1605) Positive On board controls acceptable with C Line (test code = 3574) Yes Lab Interpretation (test cod e = 76768-0) [facility] [id number] 07:12:23* Test Item Value Reference Range Interpretation Comme nts GLUC 1 HR (test code = 6830328268) 160 mg/dL 120-170 Lab Interpretation (test cod e = 85098-5) [facility] [id number] 14:03:00* Test Item Value Reference Range Interpretation Comme nts POCT PH U (test code = 3254) 7 mg/dl 5-8 POCT U LEUK EST (test code = 3263) 1+ Negative - Negative POCT U NIT (test code = 3262) neg Negative - Negati ve POCT U PROT (test code = 3259) trace Negative - Negat dorothea POCT U GLU (test code = 3256) neg Negative - Negati ve POCT U KETONE (test code = 3258) net Negative - Neg ative POCT U BLD (test code = 3257) neg Negative - Negati ve [facility] [id number] 14:02:00* Test Item Value Reference Range Interpretation Comme nts POCT PREG (test code = 1605) Positive On board controls acceptable with C Line (test code = 3574) Yes POCT PREG LOT # (test code = 3575) POCT PREG TEST DATE ( test code = 3576) [facility] History and Physical Notes Date/Time Note Provider Source 2023-12-11 07:38:59 TRIAGE HISTORY & PHYSICAL IDENTIFYING DATA Theresa Zamora is 28 year old, /White, 39w0d, female with [place] 12/18/2023, by Last Menstrual Period. : 1995 Primary Care Physician: Lew Mishra CHIEF COMPLAINT Induction HISTORY OF PRESENT ILLNESS Theresa Zamora is a 28 year old female @ 39w0d +FM. No VB, LOF. + CTX. No pre-eclampsia sx or other complaints. PAST OBSTETRIC HISTORY OB History Para Term AB Living 2 1 1 1 SAB IAB Ectopic Multiple Live Births 1 # Outcome Date GA Lbr Todd/2nd Weight Sex Delivery Anes PTL Lv 2 Current 1 Term 09/07/17 37w6d 2523 g M VAGINAL EPI [place] PAST MEDICAL HISTORY Problem list: Patient Active Problem List Diagnosis Date Noted 39 weeks gestation of 12/11/2023 Placenta previa antepartum 07/25/2023 Abnormal maternal glucose tolerance, antepartum 04/24/2023 Multiparity 04/23/2023 Supervision of high-risk 04/23/2023 38 weeks gestation of 09/07/2017 Mayes Hick's contraction 06/19/2017 Operations: No past surgical history on file. Past Medical History: Diagnosis Date Abnormal maternal glucose tolerance, antepartum 04/24/2023 Cyst of ovary Migraines 2021 Not on meds Screen for STD (sexually transmitted disease) 10/22/2017 CURRENT HEALTH STATUS Medications: Current Facility-Administered Medications Medication Dose Route Frequency Last Rate Last Admin carboprost (HEMABATE) injection 250 mcg 250 mcg Intramuscular Q2HPRN D5W-LR IV infusion 1,000 mL 1,000 mL IV Infusion TITRATE 125 mL/hr at 12/11/23 0432 1,000 mL at 12/11/23 0432 FENTanyl PF (SUBLIMAZE (PF)) injection 50 mcg 50 mcg Slow IV Push Q2HPRN 50 mcg at 12/11/23 0813 lactated ringers IV infusion 500 mL 500 mL IV Infusion ONCE lactated ringers IV infusion 500 mL 500 mL IV Infusion PRN - SEE INSTRUCTIONS lactated ringers IV infusion 500 mL 500 mL IV Infusion PRN - SEE INSTRUCTIONS lidocaine 1% (PF) (XYLOCAINE) injection 0.3 mL 0.3 mL Infiltration PRN - SEE INSTRUCTIONS methylergonovine (METHERGINE) injection 0.2 mg 0.2 mg Intramuscular Q4HPRN miSOPROStoL (CYTOTEC) tablet 200 mcg 200 mcg Rectal PRN oxytocin (PITOCIN) 30 units in NS 500 mL IV infusion 600 mL/hr IV Infusion PRN oxytocin (PITOCIN) 30 units in NS 500 mL IV infusion 2-40 juliana-units/min IV Infusion TITRATE 8 mL/hr at 12/11/23 0603 8 juliana-units/min at 12/11/23 0603 proMETHazine (PHENERGAN) 25 mg in NS 50 mL IV piggyback (CNR) 25 mg IV Piggyback Q4HPRN Stopped at 12/11/23 0555 sodium citrate-citric acid (BICITRA) 500-334 mg/5 mL solution 30 mL 30 mL Oral PRE-PROCEDURE ONCE sodium citrate-citric acid (BICITRA) 500-334 mg/5 mL solution 30 mL 30 mL Oral PRE-PROCEDURE ONCE terbutaline (BRETHINE) injection 0.25 mg 0.25 mg Subcutaneous PRN tranexamic acid (CYKLOKAPRON) 1,000 mg in NaCl 0.9% (NS) 250 mL piggyback 1,000 mg IV Piggyback PRN Allergies and drug reactions: Avocado HOME MEDICATIONS Medications Prior to Admission Medication Sig Dispense Refill Last Dose metroNIDAZOLE 500 mg tablet Take 1 tablet by mouth every 12 (twelve) hours. 13 tablet 0 Taking [id number]-[id number] acid 29 mg iron- 1 mg per tablet Take 1 tablet by mouth in the morning. 90 tablet 3 Taking SOCIAL HISTORY Tobacco History: Social History Tobacco Use Smoking Status Former Types: Cigarettes Start date: 09/21/2017 Passive exposure: Never Smokeless Tobacco Never Tobacco Comments quit Drug History: Social History Substance and Sexual Activity Drug Use No Alcohol History: Social History Substance and Sexual Activity Alcohol Use No FAMILY HISTORY Family History Adopted: Yes Problem Relation Age of Onset No Significant Medical Problems Mother Cancer Father REVIEW OF SYSTEMS General: negative Constitutional: negative Eyes: negative ENT/Mouth: negative Cardiovascular: negative Respiratory: negative Gastrointestinal:negative Genitourinary: see HPI Musculoskeletal: negative Skin/breast: negative Neurological: negative Psychiatric: negative Endocrine: negative Hemat/Lymph: negative Allergic/Immuno:none VITAL SIGNS BP: (122-139)/(81-94) Temp: [36.4 ?C (97.6 ?F)-36.9 ?C (98.5 ?F)] Temp source: Oral (12/10 0700) Pulse: [76-91] Resp: [18-22] SpO2: [97 %-100 %] Height: [152.4 cm (5')] Weight: [66.4 kg (146 lb 6.4 oz)-67 kg (147 lb 12.8 oz)] BMI (calculated): [28.59-28.87] PHYSICAL EXAMINATIONS Gen: alert and oriented, well appearing, no distress CV: RRR, normal S1/S2, no m/r/g Resp: normal work of breathing, lungs CTAB Abd: gravid, soft, NTTP Ext: no calf tenderness or edema : SVE 1/50/-3, s/p AROM (clear fluid without complications) REVIEW OF LABORATORY, PATHOLOGY, AND RADIOLOGY DATA Lab results: Type & Screen HIV Hep B Syphilis Chlamydia ABO & RH Date Value Ref Range Status 12/11/2023 B POSITIVE Final HIV Ag-Ab Multiplex Date Value Ref Range Status 07/03/2017 Non-reactive Non-reactive Final No components found for: "HBSHBSAG" Syphilis IgG/IgM Date Value Ref Range Status 10/09/2023 Non-reactive Non-reactive Final C. trachomatis Nucleic Acid Date Value Ref Range Status 11/20/2023 Negative Negative Final IAT Date Value Ref Range Status 12/11/2023 Negative Final Varicella Rubella Glucose Group B Strep CBC VZV IgG antibody Date Value Ref Range Status 02/06/2017 Negative Negative Final Rubella screen IgG Date Value Ref Range Status 04/23/2023 Positive Negative Final GLUC 1 HR Date Value Ref Range Status 09/11/2023 130 120 - 170 mg/dL Final No results found for: "CGBS" HGB Date Value Ref Range Status 12/11/2023 10.6 (L) 11.6 - 15.0 g/dL Final HCT Date Value Ref Range Status 12/11/2023 32.4 (L) 35.7 - 45.2 % Final PLT Date Value Ref Range Status 12/11/2023 273 166 - 358 10*3/?L Final Active Hospital Problems Diagnosis Date Noted 39 weeks gestation of 12/11/2023 Supervision of high-risk 04/23/2023 Resolved Hospital Problems No resolved problems to display. Present on Admission: 39 weeks gestation of Supervision of high-risk Placenta Accreta Screening Prior ? : No Prior Uterine Surgery?: No Placenta low lying/previa in current ? : Yes Screening outcome: A positive screening outcome indicates a history of prior delivery or prior uterine surgery, AND the presence of either a placenta low lying/previa or ultrasound suspicion of PASD in the current . Negative screening. ASSESSMENT AND PLAN Theresa Zamora is a 28 year old female @ 39w0d here for an elective induction. Induction - FB in placed. Low dose pitocin overnight - Cephalic presentation confirmed - GBS neg - [place] EFW < [address] Goldman, please see OB Summary for more details Richard Goldman MD 12/11/2023 7:39 AM T [facility] - [facility] Procedure Notes Date/Time Note Provider Source 2023-12-11 12:30:35 Associated Order(s): Central Neuraxial Block Central Neuraxial Block Date/Time: 12/11/2023 12:30 PM Performed by: Gail Lopez MD Authorized by: Gail Lopez MD Patient Location: OB Reason for Block: OB request, Patient request, Labor analgesia, Surgical anesthesia and Post-op pain management Staff: Anesthesiologist: Gail Lopez MD Performed by: anesthesiologist Preanesthetic Checklist: patient identified, IV checked, risks and benefits explained, monitors and equipment checked, timeout performed, pre-op evaluation, site marked, anesthesia consent, ob/surgical consent verified and surgical consent Procedure: Type of Neuraxial: Epidural Epidural Description: 1st attempt Sterility Prep drape, gloves, hand hygiene and mask Sedation Level no sedation Patient Position: sitting Prep: Betadine and patient draped Monitoring: heart rate, continuous pulse ox, heart rate / toco and NIBP Location: lumbar (1-5) Lumbar: L3-L4 Approach: midline Technique: catheter and KARINE saline Guidance with: landmark technique} Epidural/Spinal [place] and/or Catheter: Epidural/Spinal Kit: BBun Needle Type: Tuohy Needle Gauge: 17 G Needle Length: 3.5 in (8.89 cm) Needle Insertion Depth: 5.5 Catheter Type: multiport Catheter Size: 19 G Catheter at Skin Depth: 11 Number of Attempts: 1 Test Dose: lidocaine 1.5% with epinephrine 1-to-200,000 and negative Dose: 3 cc Catheter Securement Method: surgical tape, Tegaderm and clear occlusive dressing Assessment: Sensory Level: above T10 Thoracic: T8 Block Outcome: positive pain relief Procedure Assessment: patient tolerated procedure well with no complications Notes: Smooth and atraumatic, (+) Local, (+) STF T [facility] Notes Date/Time Note Provider Source 2024-05-06 10:30:00 Images from the original note were not included. Venipuncture collection performed by clean technique on the left anticubitus. Total of 1 attempts were made. Slight pressure and a bandage/dressing were applied to the site(s). The patient experienced no complications. The following specimens were processed according to instructions and sent to [facility] laboratories per lab order on 05/06/2024 : LT BLUE SST RED LAV 1 PPT DK GREEN (LiHep) DK GREEN (SodH) APARICIO DK BLUE (K2) DK BLUE (S) ACD Blood Culture NIPT/NTD T [facility] 2024-04-07 09:37:06 Pt notified. Leah Rothman MA 04/07/2024 9:37 AM T [facility] 2024-04-07 09:32:22 Pt called in for results. Sasha Xiao [facility] 2024-04-06 13:30:00 Images from the original note were not included. Venipuncture collection performed by clean technique on the left anticubitus. Total of 1 attempts were made. Slight pressure and a bandage/dressing were applied to the site(s). The patient experienced no complications. The following specimens were processed according to instructions and sent to [facility] laboratories per lab order on 04/06/2024: LT BLUE SST 3 RED LAV 2 PPT DK GREEN (LiHep) DK GREEN (SodH) APARICIO DK BLUE (K2) DK BLUE (S) ACD Blood Culture NIPT/NTD [facility] 2023-12-13 10:31:32 Problem: Pain Goal: Control of pain at or below patient's documented comfort goal Outcome: Progressing as expected Goal: Reduction in pain sensation Outcome: Progressing as expected Problem: Complications of hemorrhage (risk or actual) Goal: Absence of active bleeding Outcome: Progressing as expected Problem: Falls, Risk of Goal: Absence of falls Outcome: Progressing as expected Problem: Discharge Planning - Goal: Adequate for discharge Outcome: Progressing as expected Goal: Mood stable Outcome: Progressing as expected T Magnolia Alexander RN [facility] 2023-12-12 19:58:57 Problem: Pain Goal: Control of pain at or below patient's documented comfort goal Outcome: Progressing as expected Goal: Reduction in pain sensation Outcome: Progressing as expected Problem: Complications of hemorrhage (risk or actual) Goal: Absence of active bleeding Outcome: Progressing as expected Goal: Absence of complications Outcome: Progressing as expected Problem: Falls, Risk of Goal: Absence of falls Outcome: Progressing as expected Problem: Discharge Planning - Goal: Adequate for discharge Outcome: Progressing as expected Goal: Mood stable Outcome: Progressing as expected Sabrina Iglesias RN [facility] 2023-12-12 18:00:00 Problem: Pain Goal: Control of pain at or below patient's documented comfort goal 12/12/20232023 by Inga Jones RN Outcome: Progressing as expected 12/12/2023 1610 by Inga Jones RN Outcome: Progressing as expected 12/12/2023 1245 by Inga Jones RN Outcome: Progressing as expected Goal: Reduction in pain sensation 12/12/20232023 by Inga Jones RN Outcome: Progressing as expected 12/12/2023 1610 by Inga Jones RN Outcome: Progressing as expected 12/12/2023 1245 by Inga Jones RN Outcome: Progressing as expected Problem: Complications of hemorrhage (risk or actual) Goal: Absence of active bleeding 12/12/20232023 by Inga Jones RN Outcome: Progressing as expected 12/12/2023 1610 by Inga Jones RN Outcome: Progressing as expected 12/12/2023 1245 by Inga Jones RN Outcome: Progressing as expected Goal: Absence of complications 12/12/20232023 by Inga Jones RN Outcome: Progressing as expected 12/12/2023 1610 by Inga Jones RN Outcome: Progressing as expected 12/12/2023 1245 by Inga Jones RN Outcome: Progressing as expected Problem: Falls, Risk of Goal: Absence of falls 12/12/20232023 by Inga Jones RN Outcome: Progressing as expected 12/12/2023 1610 by Inga Jones RN Outcome: Progressing as expected 12/12/2023 1245 by Inga Jones RN Outcome: Progressing as expected Problem: Discharge Planning - Goal: Adequate for discharge 12/12/20232023 by Inga Jones RN Outcome: Progressing as expected 12/12/2023 1610 by Inga Jones RN Outcome: Progressing as expected Goal: Mood stable 12/12/20232023 by Inga Jones RN Outcome: Progressing as expected 12/12/2023 1610 by Inga Jones RN Outcome: Progressing as expected Inga Jones RN [facility] 2023-12-12 16:11:14 Problem: Pain Goal: Control of pain at or below patient's documented comfort goal 12/12/2023 1610 by Inga Jones RN Outcome: Progressing as expected 12/12/2023 1245 by Inga Jones RN Outcome: Progressing as expected Goal: Reduction in pain sensation 12/12/2023 1610 by Inga Jones RN Outcome: Progressing as expected 12/12/2023 1245 by Inga Jones RN Outcome: Progressing as expected Problem: Complications of hemorrhage (risk or actual) Goal: Absence of active bleeding 12/12/2023 1610 by Inga Jones RN Outcome: Progressing as expected 12/12/2023 1245 by Inga Jones RN Outcome: Progressing as expected Goal: Absence of complications 12/12/2023 1610 by Inga Jones RN Outcome: Progressing as expected 12/12/2023 1245 by Inga Jones RN Outcome: Progressing as expected Problem: Falls, Risk of Goal: Absence of falls 12/12/2023 1610 by Inga Jones RN Outcome: Progressing as expected 12/12/2023 1245 by Inga Jones RN Outcome: Progressing as expected Problem: Discharge Planning - Goal: Adequate for discharge Outcome: Progressing as expected Goal: Mood stable Outcome: Progressing as expected [facility] 2023-12-12 15:49:06 Images from the original note were not included. This note was copied from a baby's chart. Stopping Breast Milk Production Breast stimulation encourages milk production. The more milk is removed the body responds by making more milk. When the breast stays full it signals the body to stop making milk. Breast fullness and swelling can be painful. This is normal and may last 3- 4 days. Helpful tips to stop breast milk production Do not bind your breast. This can lead to plugged ducts, mastitis, and increased pain. Wear a supportive bra day and night. Nursing pads are helpful for leaking milk. Talk to your provider about over the counter pain relievers such as ibuprofen or acetaminophen to help relieve pain. Ice packs or cold cabbage leaves on the breast can help decrease swelling and pain. Use 3-4 times per day for 15-20 minutes. Drink when you are thirsty. Drinking less fluids does not help and can make you dehydrated. If your breasts become very uncomfortable express just enough milk to reduce the pressure. Call your healthcare provider Call your healthcare provider right away if you have any of the following: A fever or chills Extreme tiredness and body aches, as if you have the flu Burning or pain in one or both breasts Red streaks on a breast Hard or lumpy spots in one or both breasts A feeling of warmth or heat in one or both breasts It can take some women up to 10 days or longer for the breasts to stop making milk. Please contact your primary care provider for questions or concerns. If you have a fever over 101?F (38.3?C), pain and/or redness in a specific area of the breast, feel like you are coming down with the flu, it could be a sign of breast or other infection. It may be temporarily necessary to remove a majority of the milk from the breasts by hand expression or pumping to help the infection clear, along with the use of antibiotics. Contact your primary care provider. Connie AU, RN, IBCLC Connie Harding RN [facility] 2023-12-12 12:46:45 Problem: Pain Goal: Control of pain at or below patient's documented comfort goal Outcome: Progressing as expected Goal: Reduction in pain sensation Outcome: Progressing as expected Problem: Complications of hemorrhage (risk or actual) Goal: Absence of active bleeding Outcome: Progressing as expected Goal: Absence of complications Outcome: Progressing as expected Problem: Falls, Risk of Goal: Absence of falls Outcome: Progressing as expected [facility] [employer] 2023-12-12 12:45:19 Problem: Pain Goal: Control of pain at or below patient's documented comfort goal Outcome: Progressing as expected Goal: Reduction in pain sensation Outcome: Progressing as expected Problem: Complications of hemorrhage (risk or actual) Goal: Absence of active bleeding Outcome: Progressing as expected Goal: Absence of complications Outcome: Progressing as expected Problem: Falls, Risk of Goal: Absence of falls Outcome: Progressing as expected [facility] 2023-12-12 05:27:15 Patient: Thereas Zamora Procedure Summary Date: 12/11/23 Room / Location: Anesthesia Start: 1205 Anesthesia Stop: 12/12/23 0100 Procedure: CENTRAL NEURAXIAL BLOCK Diagnosis: Scheduled Providers: Responsible Provider: Nanette Mcdowell MD Anesthesia Type: Epidural ASA Status: 2 Anesthesia Type: Epidural Last vitals BP Temp Pulse Resp SpO2 There were no known notable events for this encounter. Anesthesia Post Evaluation Patient location during evaluation: bedside Patient participation: complete - patient participated Level of consciousness: awake Pain score: 0 Pain management: adequate Airway patency: patent Cardiovascular status: acceptable Respiratory status: acceptable, room air, unassisted and spontaneous ventilation Hydration status: stable Comments: ANESTHESIA FACULTY EPIDURAL NOTE Date of service: 12/12/2023 Patient examined, patient awake s/p with KALYANI. Now s/p catheter removal. BP 131/85 | Pulse 55 | Temp 36.7 ?C (98.1 ?F) (Oral) | Resp 16 | Ht 1.524 m (5') | Wt 67 kg (147 lb 12.8 oz) | LMP 03/13/2023 | SpO2 100% | Unknown | BMI 28.87 kg/m? Block not fully resolved, as expected. Patient participated otherwise. Block resolving appropriately. Patient discharged from L&D according to criteria. Complications: No apparent complications Fall precautions given Nanette Mcdowell MD AN-ANESTHESIOLOGY ANESTHESIOLOGIST [facility] 2023-12-11 22:58:08 Problem: Pain Goal: Control of pain at or below patient's documented comfort goal 12/11/20232256 by Sabrina Iglesias RN Outcome: Progressing as expected 12/11/20231856 by Sabrina Iglesias RN Outcome: Progressing as expected Goal: Reduction in pain sensation 12/11/20232256 by Sabrina Iglesias RN Outcome: Progressing as expected 12/11/20231856 by Sabrina Iglesias RN Outcome: Progressing as expected Problem: Complications of hemorrhage (risk or actual) Goal: Absence of active bleeding 12/11/20232256 by Sabrina Iglesias RN Outcome: Progressing as expected 12/11/20231856 by Sabrina Iglesias RN Outcome: Progressing as expected Goal: Absence of complications 12/11/20232256 by Sabrina Iglesias RN Outcome: Progressing as expected 12/11/20231856 by Sabrina Iglesias RN Outcome: Progressing as expected Problem: Falls, Risk of Goal: Absence of falls 12/11/20232256 by Sabrina Iglesias RN Outcome: Progressing as expected 12/11/20231856 by Sabrina Iglesias RN Outcome: Progressing as expected T [facility] 2023-12-11 22:47:00 DELIVERY BY SPONTANEOUS VAGINAL DELIVERY Delivery Date: 12/11/2023 Delivery Time: 9:10 PM Delivery Summary Theresa Zamora is a 28 year old female @ 39w0d presented for induction. Ruled in for pre-eclampsia without severe features intrapartum. The patient was admitted to the Labor & Delivery unit for induction at 39 weeks. Delivery Physician: Richard Goldman MD Intrapartum Anesthesia/Analgesia: Epidural Mode of Delivery: Delivery of pena fetus with cephalic presentation Fetus Spontaneous vaginal delivery of head with cephalic position, occipital anterior. As the head crowned and distended the perineum, no episiotomy was performed. A blue towel was used to protect the perineum as the head crowned and delivered. The other hand was used to exert pressure on the occiput to control the delivery of the head. The perineum was pushed with a towel-draped hand as the head and mouth was delivered over the perineum. The head was allowed to rotate externally to achieve natural body posture. Examination of neck revealed nuchal cord, which was Umbilical cord not reducted - body delivered through umbilical cord. The shoulder was delivered by gentle downward traction applied to head and downward traction for the delivery of anterior shoulder. This was followed by upward traction with delivery of posterior shoulder and body. After the delivery of infant, bulb suction was performed from ororpharynx and nostril with removal of clear amniotic fluid. A normal, male was delivered. The umbilical cord was double clamped, cut and the was handed off the field to the circulating nurse Placenta Placenta was delivered spontaneously while the abdominal hand lifted the uterus cephalad and other hand keeping the umbilical cord slightly taut. Laceration: None Laceration Repair: No laceration repair needed. Fourth Stage Fourth stage of labor was managed by uterine massage with abdominal hand and infusion 30 units of pitocin mixed with intravenous fluid. EBL: 50 Complications: None Weight: 2910 g 1 Minute 5 Minute 10 Minute Totals: 9 9 Richard Goldman MD 12/12/2023 6:49 AM [facility] 2023-12-11 19:27:02 Problem: Intrapartum process (including labor pain) Goal: Absence of or reduction of complications of labor Outcome: Progressing as expected Goal: Able to cope with pain Outcome: Progressing as expected Goal: Adequate to move to next level of care Outcome: Progressing as expected Goal: Reduction in pain sensation Outcome: Progressing as expected Problem: Pain Goal: Control of pain at or below patient's documented comfort goal Outcome: Progressing as expected Goal: Reduction in pain sensation Outcome: Progressing as expected Problem: Complications of hemorrhage (risk or actual) Goal: Absence of active bleeding Outcome: Progressing as expected Goal: Absence of complications Outcome: Progressing as expected Problem: Falls, Risk of Goal: Absence of falls Outcome: Progressing as expected Alissa Cameron RN [facility] 2023-12-11 18:58:17 Problem: Intrapartum process (including labor pain) Goal: Absence of or reduction of complications of labor Outcome: Progressing as expected Goal: Able to cope with pain Outcome: Progressing as expected Goal: Adequate to move to next level of care Outcome: Progressing as expected Goal: Reduction in pain sensation Outcome: Progressing as expected Problem: Pain Goal: Control of pain at or below patient's documented comfort goal Outcome: Progressing as expected Goal: Reduction in pain sensation Outcome: Progressing as expected Problem: Complications of hemorrhage (risk or actual) Goal: Absence of active bleeding Outcome: Progressing as expected Goal: Absence of complications Outcome: Progressing as expected Problem: Falls, Risk of Goal: Absence of falls Outcome: Progressing as expected [facility] 2023-12-11 12:32:01 Name/ MRN / Age / Gender: Theresa Zamora, [id number] 28 year old female BMI: Estimated body mass index is 28.87 kg/m? as calculated from the following: Height as of this encounter: 1.524 m (5'). Weight as of this encounter: 67 kg (147 lb 12.8 oz). Allergies: Avocado Last Vitals: BP Readings from Last 1 Encounters: 12/11/23 109/84 Pulse Readings from Last 1 Encounters: 12/11/23 73 SpO2 Readings from Last 1 Encounters: 12/11/23 99% Date of Surgery: Surgeon: * Surgery not found * Procedure: CENTRAL NEURAXIAL BLOCK OR Location: [place] ANESTHESIA OUT OF OR - OR LOCATION Anesthesia Preop Eval (physical exam) Anesthesia Preop: [id number] NPO Status Verified Clear Liquids: > 2 Hours Solid Food/Non-Clear Liquids: > 8 Hours PONV Risk Factors: female and non-smoker Anesthesia History Anesthesia History Negative Previous Anesthetics/Airways Cardiovascular Negative Cardiac ROS Pulmonary Negative Pulmonary ROS Neuro/Musculoskeletal Negative Neuro/Musculosketal ROS GI/Hepatic (+) GERD Hematology Negative Hematology ROS Renal Negative Renal ROS Skin (+) Current IV access and 18g Endo/Other Negative Endo/Other ROS Other [employer] P: 1 Gestational Age: 39wk Pediatric Pediatric N/A N/A Preoperative Medication Instructions Continue taking all prescribed medications except: LYDIA inhibitors, ARBs, diuretics, all oral diabetes medications Anticoagulant Therapy: Defer to surgeons Insulin: Take 1/2 dose the night prior to surgery. Hold on DOS. Phentermine: Alert [facility] anesthesiologist SGLT2 Inhibitors: "gliflozins" to be held for 3 days prior to elective surgeries GLP1 Agonosit: stop 7 days prior to surgery MAC Cases: Continue taking LYDIA inhibitors and ARBs ASA Classification ASA: 2 Labs: Chemistry 04/24/2023 CBC 12/11/2023 140 103 14 95 11.82 (H) 10.6 (L) 273 3.9 25 0.48 (L) 32.4 (L) eGFR: 157.6 Date: 04/24/2023 ANC: 6.55 Date: 12/11/2023 LFTs - Coags AST: - AP: - Prot: - Ca: 9.9 PT: - Date: - ALT: - T [place]: - Alb: - PTT: - Date: - PO4: - Date: - INR: - Date: - Cardiac Endocrine & other pBNP: - Date: - A1C: - Date: - Trop I: - Date: - POCT A1C: - Date: - CK: - Date: - TSH: - Date: - CKMB: - Date: - FT4: - Date: - LDL: - Date: - Lact: - Date: - Procal: - Date: - Respiratory -|-|-|-|- D-dimer: - ABG Date: - Date: - Miscellaneous Type and Screen: B POSITIVE Antibody: Negative Date: 12/11/2023 POCT : Positive Date: 04/24/2023 Current Medications: No outpatient medications have been marked as taking for the 12/11/23 encounter (Hospital Encounter). Previous Surgeries: No past surgical history on file. Anesthesia Physical Exam General no apparent distress and alert and oriented x 3 Neuro/Psych neurological Dental no notable dental hx Abdominal (+) obesity and gravid Airway Mallampati score:II TM distance:> 5 cm Neck ROM: full Mouth opening:normal (+) Normal facies Extremity Normal extremity Pulmonary pulmonary exam normal Other Cardiovascular Rhythm:regular Rate: normal Anesthesia Plan ASA Status: 2 AN-ANESTHESIOLOGY ANESTHESIOLOGIST [facility] 2023-12-11 08:15:36 Name/ MRN / Age / Gender: Theresa Zamora, [id number] 28 year old female BMI: Estimated body mass index is 28.87 kg/m? as calculated from the following: Height as of this encounter: 1.524 m (5'). Weight as of this encounter: 67 kg (147 lb 12.8 oz). Allergies: Avocado Last Vitals: BP Readings from Last 1 Encounters: 12/11/23 125/87 Pulse Readings from Last 1 Encounters: 12/11/23 86 SpO2 Readings from Last 1 Encounters: 12/11/23 100% Date of Surgery: Surgeon: * Surgery not found * Procedure: LABOR CONSULT OR Location: * No surgery found * Anesthesia Preop Eval (physical exam) Anesthesia Preop: [id number] NPO Status Verified Clear Liquids: > 2 Hours Solid Food/Non-Clear Liquids: > 8 Hours PONV Risk Factors: female and non-smoker Anesthesia History Anesthesia History Negative Previous Anesthetics/Airways Cardiovascular Negative Cardiac ROS Pulmonary Negative Pulmonary ROS Neuro/Musculoskeletal Negative Neuro/Musculosketal ROS GI/Hepatic (+) GERD Hematology Negative Hematology ROS Renal Negative Renal ROS Skin (+) Current IV access and 18g Endo/Other Negative Endo/Other ROS Other [employer] P: 1 Gestational Age: 39wk Pediatric Pediatric N/A N/A Preoperative Medication Instructions Continue taking all prescribed medications except: LYDIA inhibitors, ARBs, diuretics, all oral diabetes medications Anticoagulant Therapy: Defer to surgeons Insulin: Take 1/2 dose the night prior to surgery. Hold on DOS. Phentermine: Alert [facility] anesthesiologist SGLT2 Inhibitors: "gliflozins" to be held for 3 days prior to elective surgeries GLP1 Agonosit: stop 7 days prior to surgery MAC Cases: Continue taking LYDIA inhibitors and ARBs ASA Classification ASA: 2 Labs: Chemistry 04/24/2023 CBC 12/11/2023 140 103 14 95 11.82 (H) 10.6 (L) 273 3.9 25 0.48 (L) 32.4 (L) eGFR: 157.6 Date: 04/24/2023 ANC: 6.55 Date: 12/11/2023 LFTs - Coags AST: - AP: - Prot: - Ca: 9.9 PT: - Date: - ALT: - T Adren: - Alb: - PTT: - Date: - PO4: - Date: - INR: - Date: - Cardiac Endocrine & other pBNP: - Date: - A1C: - Date: - Trop I: - Date: - POCT A1C: - Date: - CK: - Date: - TSH: - Date: - CKMB: - Date: - FT4: - Date: - LDL: - Date: - Lact: - Date: - Procal: - Date: - Respiratory -|-|-|-|- D-dimer: - ABG Date: - Date: - Miscellaneous Type and Screen: B POSITIVE Antibody: Negative Date: 12/11/2023 POCT : Positive Date: 04/24/2023 Current Medications: No outpatient medications have been marked as taking for the 12/11/23 encounter (Hospital Encounter). Previous Surgeries: No past surgical history on file. Anesthesia Physical Exam General no apparent distress and alert and oriented x 3 Neuro/Psych neurological Dental no notable dental hx Abdominal (+) obesity and gravid Airway Mallampati score:II TM distance:> 5 cm Neck ROM: full Mouth opening:normal (+) Normal facies Extremity Normal extremity Pulmonary pulmonary exam normal Other Cardiovascular Rhythm:regular Rate: normal Anesthesia Plan ASA Status: 2 NACR-NURSE OFFSHORE WIND TURBINE TECHNICIAN,CERTIFIED REGISTERED NURSE OFFSHORE WIND TURBINE TECHNICIAN [facility] 2023-12-11 03:59:43 Problem: Intrapartum process (including labor pain) Goal: Absence of or reduction of complications of labor Outcome: Progressing as expected Goal: Able to cope with pain Outcome: Progressing as expected Goal: Adequate to move to next level of care Outcome: Progressing as expected Goal: Reduction in pain sensation Outcome: Progressing as expected Problem: Pain Goal: Control of pain at or below patient's documented comfort goal Outcome: Progressing as expected Goal: Reduction in pain sensation Outcome: Progressing as expected Problem: Complications of hemorrhage (risk or actual) Goal: Absence of active bleeding Outcome: Progressing as expected Goal: Absence of complications Outcome: Progressing as expected Problem: Falls, Risk of Goal: Absence of falls Outcome: Progressing as expected Lauryn Higuera RN [facility] 2023-12-10 09:30:00 Age: [age] year old GA: 38w6d Transfer of care from [facility] -07/19/2023: Anatomy ultrasound without obvious abnormalities except for placenta previa, resolved on 10/23/2023 ultrasound. -Labs within normal limits except for 1 hour, normal 3-hour GTT Doing well today With seen on labor and delivery on 12/07/2023 and was prescribed Flagyl for BV. Desires induction at 39 weeks, scheduled for tomorrow unless clinically indicated otherwise This reviews what Dr. Godlman talked about at your 36 week talk: 1. Go to Labor and Delivery when your contractions are 5-7 minutes apart and you have been able to time them for an hour. If you live more than 30 minutes from the hospital, then go when they are 10 minutes apart and you have been able to time them for an hour. 2. BUT, there are 4 reasons to go to Labor and Delivery REGARDLESS of what else is happening, whether you are emilia or not: 1. If your water breaks - - - it may be a gush or a constant trickle. If you are not sure, always come in to be checked. 2. Bleeding like your period. 3. If your baby's movements are less than 10 in an hour. If you are concerned this might be the case, drink a tall glass of cold fluids, lay down on your side on the couch or your bed and see how long it takes to note 10 movements - if less than 10, this needs to be evaluated immediately. 4. Contractions or Pain that is continuous. Normal labor contractions last only 45 seconds - 1 minute. Delivery consent signed today RTC in 4 to 6 weeks for visit [facility] 2023-12-07 10:27:22 Contractions 5-7min apart and pelvic pressure since 729. OB: [facility], , LMP: 824 Report to Veronica in L&D Shiela Santillan RN [facility] 2023-11-28 08:40:19 Nurse Report Report given to LUANN WALKER. Chief complaint, assessment findings, and orders reviewed. Plan of care discussed with both nurses. Renee Latham RN [facility] 2023-11-28 08:36:19 CC: patient presents to the ER with complaints of abdominal tightness during . Patient is 37 weeks 1 day gestation, states she was considered high risk at the beginning of the due to placenta previa. States her abdominal tightness is every 10 minutes, states she lost her mucous plug. PMHx: see history Awake, alert, oriented, resp reg unlabored, skin warm and dry, color appropriate for race, moves all ext without difficulty, amb without assistance. Appears in no distress. Renee Latham RN [facility] 2023-11-25 14:59:36 Patient stated she has been having intermittent lower abdominal and lower back pain x 2 days. Stated her pain is about a 5/10 when she has the pain and her stomach also gets tight. Stated she will have the pain about 2-3 times a day, has not tried taking any Tylenol for relief. Denies any other symptoms, advised patient to take Tylenol to see if she gets relief. Advised to drink 8-10 glasses of water a day and to wear maternity belt for support. Advised to keep appt for 5/1, strict L&D warnings given, verbalized understanding. Beverly Gatica LVN [facility] 2023-11-25 14:57:40 Copied from [facility] #[id number]. 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 ; 28w1d gestation. States she saw her OB yesterday which she states she reported the cramping, however the leaking started today. Denies any vaginal bleeding, reports normal movement. Report called to LUANN Maxwell N Vega RN [facility] 2023-08-05 22:07:25 C/O vomiting, Diarrhea and lower abd pain that started around 1430 today. Pt states 21 wks, dute 12/18/2023, . N Tamayo RN [facility]
[2024-06-09] MEDS ORDERED: FAMOTIDINE 20 MG/2 ML VIAL IV ONE (15:57)
[2024-06-09 16:28] LABS: Absolute Lymphocytes (CBC) 2.5 K/uL (0.7-4.9); Absolute Monocytes 0.4 K/uL (0.1-1.3); Basophils % 0.5 % (0-1.3); Eosinophils % 0.6 % (0-4.4); Hematocrit 42.3 % (36.0-45.0); Hemoglobin 13.8 g/dL (12.0-15.0); Lymphocytes % 30.9 % (15.3-44.8); MCH 29.5 pg (27.0-35.0); MCHC 32.6 g/dL (32.0-36.0); MCV 90.6 fL (80-100); MPV 7.8 fL (7.6-11.3); Monocytes % 5.3 % (3.3-12.3); Neutrophils % 62.7 % (41.7-73.7); Platelets 379 thou/uL (152-406); RBC Red Blood Cell Count 4.67 M/uL (3.86-4.86); Red Cell Distribution Width 14.1 % (12.1-15.2)
[2024-06-09 16:32] LABS: Specific Gravity 1.012 (1.005-1.030)
[2024-06-09 16:39] LABS: Albumin/Globulin Ratio 1.1 (1.1-1.8); Anion Gap 8.9 mEq/L (5.0-15.0); Bilirubin Total 0.3 mg/dL (0.2-1.0); Globulin 3.8 g/dL (2.3-3.5); Potassium 3.9 mEq/L (3.5-5.1); Protein, Total 7.8 g/dL (6.4-8.2)
--- NOTE | 2024-06-09 16:49 | RAD REPORT ---
EXAMINATION: US PELVIS TRANSVAGINAL WITH DOPPLER CLINICAL INDICATION: Female 28 years old. SP/ LLQ pain TECHNIQUE: Real-time ultrasonography of the pelvis was performed transvaginally. Color and spectral D oppler evaluation of the ovaries was performed. COMPARISON: No prior exam. FINDINGS: UTERUS AND CERVIX: The uterus measures 7.6 x 4.9 x 4.1 cm (cervix to fundus x AP x transverse). The u terus is normal. No masses seen The endometrium is normal, 8 mm in thickness. RIGHT OVARY: Normal. The right ovary measures 3.0 x 1.7 x 1.7 cm. Normal color and spectral Doppler evaluation of the right ovary.. LEFT OVARY: 4 cm hemorrhagic ovarian cyst is suspected.. The left ovary measures 5.0 x 4.1 x 4.0 cm. Normal color and spectral Doppler evaluation of the left ovary.. FREE FLUID: No free fluid. ADDITIONAL FINDINGS: IMPRESSION: 4 cm hemorrhagic left ovarian cyst suspected. Recommendations for f/u of ovarian hemorrhagic cysts and corpus luteum cysts (1): Hemorrhagic cyst, Pre-menopause: <=5 cm No follow-up imaging recommended >5 cm US f/u 6-12 weeks. If not resolved, US f/u annually. (1) Recommendations based upon the 2010 SRU Consensus Conference Statement on the Management of Asymptomatic Ovarian and Other Adnexal Cysts Imaged at US: Radiology. 2009;256(3):943-54
--- NOTE | 2024-06-09 17:36 | RAD REPORT ---
EXAMINATION: CT ABDOMEN AND PELVIS WITH CONTRAST CLINICAL INDICATION: ABD PAIN TECHNIQUE: CT abdomen and pelvis was performed, after the administration of IV contrast, [facility]. Axial, sagittal and coronal reconstructions were obtained. One or more of the following dose reduction techniques were used: Automated exposure control, adjustment of the mA and k V according to patient size, and iterative reconstruction. Unless otherwise specified, incidental findings do not require dedicated imaging follow-up. COMPARISON: Recent pelvic sonogram. FINDINGS: LOWER CHEST: The visualized lung bases are clear. LIVER: Normal in size and contour. No focal lesion. Grossly unremarkable gallbladder. SPLEEN: Normal size. No focal lesion. PANCREAS: No mass, ductal dilation, or tyler-pancreatic fluid. ADRENALS: Normal; no mass. KIDNEYS: Normal size and contour. No hydronephrosis. GASTROINTESTINAL TRACT: No evidence of free air, significant intra-abdominal free fluid, bowel obstru ction or abscess. APPENDIX: Appendix not visualized, but no inflammatory changes in region of appendix. LYMPH NODES: No lymphadenopathy. MUSCULOSKELETAL: No acute or suspicious osseous abnormality. ADDITIONAL FINDINGS: Trace pelvic free fluid. 3.5 cm left ovarian/adnexal cyst. IMPRESSION: 3.5 cm left adnexal/ovarian cyst, otherwise negative study.
--- NOTE | 2024-06-09 18:18 | EDPHYS ---
Physician Documentation [facility] Name: Theresa Martinez Age: 28 yrs Sex: Female : 1995 Arrival Date: 06/09/2024 Time: 15:06 Bed 23 Private MD: ED Physician Tyler Nelson HPI: 06/09 16:06 This 28 yrs old Female presents to ER via Ambulatory with complaints of Abdominal Pain ms3 - left side pain. 16:06 28-year-old female with past medical history of migraine and ovarian cyst presents to [facility] the emergency department for abdominal pain for the past week. The pain is localized in the suprapubic and left lower quadrant areas. Patient states her pain is improved at this time; however, when the pain is severe it is a 10/10. Patient denies any alleviating or inciting factors. . DIAPHRAGM BUILDER: 15:42 LMP 04/28/2024, unknown ss Historical: - Allergies: 15:42 No Known Allergies; ss - Home Meds: 15:42 None [Active]; ss - PMHx: 15:42 Migraine; ovarian cyst; ss - PSHx: 15:42 None; ss - Immunization history:: Client reports having NOT received the Covid vaccine. - Infectious Disease History:: Denies. - Social history:: Smoking status: Patient denies any tobacco usage or history of. ROS: 16:06 Constitutional: Negative for fever, and chills. Cardiovascular: Negative for chest ms3 pain, and palpitations. Respiratory: Negative for shortness of breath, cough, wheezing, and pleuritic chest pain, 16:06 Skin: Negative for injury, rash, and discoloration, 16:06 Abdomen/GI: Positive for abdominal pain, Exam: 16:06 Constitutional: This is a well developed, well nourished patient who is awake, alert, ms3 and in no acute distress. Chest/axilla: Normal chest wall appearance and motion. Nontender with no deformity. Cardiovascular: Regular rate and rhythm with a normal S1 and S2. No gallops, murmurs, or rubs. Normal PMI, no JVD. No pulse deficits. Respiratory: Lungs have equal breath sounds bilaterally, clear to auscultation and percussion. No rales, rhonchi or wheezes noted. No increased work of breathing, no retractions or nasal flaring. 16:06 Abdomen/GI: Inspection: abdomen appears normal, Bowel sounds: normal, Palpation: moderate abdominal tenderness, in the epigastric area, left upper quadrant, right lower quadrant and left lower quadrant, Vital Signs: 15:40 BP 120 / 82; Pulse 83; Resp 16; Temp 97.9(TE); Pulse Ox 100% on R/A; Weight 61.23 kg; ss Height 5 ft. 1 in. ; Pain 5/10; 15:40 Body Mass Index 25.51 (61.23 kg, 154.94 cm) ss 15:40 Pain Scale: Adult ss MDM: 15:08 Medical Screening Exam initiated kb 16:06 Differential diagnosis: diverticulitis, non-specific abd pain, Ovarian cyst versus ms3 . 18:16 Data reviewed: vital signs, nurses notes, lab test result(s), radiologic studies, and ms3 as a result, I will discharge patient. I considered the following discharge prescriptions or medication management in the emergency department Morphine offered and patient declined. Counseling: I had a detailed discussion with the patient and/or guardian regarding the historical points, exam findings, and any diagnostic results supporting the discharge/admit diagnosis, lab results, radiology results, the need for outpatient follow up, to return to the emergency department if symptoms worsen or persist or if there are any questions or concerns that arise at home. Special discussion: I discussed with the patient/guardian in detail that at this point there is no indication for admission to the hospital. It is understood, however, that if the symptoms persist or worsen the patient needs to return immediately for re-evaluation. ED course: Patient remains hemodynamically stable in the emergency department. Discussed labs and imaging with patient. Patient to follow-up with gynecology in 2 to 3 days. All questions were answered. Return precautions discussed include worsening symptoms, shortness of breath, lightheadedness, worsening pain, or any other concerns.. 06/09 15:31 Order name: CBC with Diff; Complete Time: 16:42 ms3 06/09 15:31 Order name: CMP; Complete Time: 16:42 ms3 06/09 15:31 Order name: Lipase; Complete Time: 16:42 ms3 06/09 16:15 Order name: Test, Urine; Complete Time: 16:42 ss 06/09 16:09 Order name: Transvaginal Study Probe; Complete Time: 17:50 EDMS 06/09 16:43 Order name: CT Abd/Pelvis - IV Contrast Only; Complete Time: 17:50 ms3 06/09 15:31 Order name: IV Saline Lock; Complete Time: 16:13 ms3 06/09 15:31 Order name: Labs collected and sent; Complete Time: 16:13 ms3 Administered Medications: 16:13 Drug: Famotidine IVP 20 mg IVP once; dilute with 10 mL 0.9% NaCl; give over 2 minutes ss Route: IVP; Site: left antecubital; 18:56 Follow up: Response: No adverse reaction ss 16:13 Not Given (Patient Refused): morphineor iv 4 mg IVP once over 4 mins ss Disposition Summary: 06/09/24 18:18 Discharge Ordered Notes: Location: Home ms3 Condition: Stable ms3 Diagnosis - Hemorrhagic left ovarian cyst ms3 - Lower abdominal pain, unspecified ms3 Followup: ms3 - With: Annmarie Hernandez MD - When: 2 - 3 days - Reason: Recheck today's complaints Discharge Instructions: - Discharge Summary Sheet ms3 - Ovarian Cyst, [id number]-[id number] ms3 Forms: - Medication Reconciliation Form ms3 - Antibiotic Education ms3 - Prescription Opioid Use ms3 - Patient Portal Instructions ms3 - Leadership Thank You Letter ms3 Signatures: Dispatcher [employer] Milana Krause, STATIONARY ENGINEER-C STATIONARY ENGINEER-Velvet Rankin RN RN Tyler Kurtz DO DO ms3 Corrections: (The following items were deleted from the chart) 15:31 15:31 CBC+H.LAB.BRZ ordered. EDMS EDMS 15:31 15:31 COMPREHENSIVE METABOLIC PANEL+C.LAB.BRZ ordered. EDMS EDMS 15:31 15:31 LIPASE+C.LAB.BRZ ordered. EDMS EDMS 15:31 15:31 Pelvis Complete+US.RAD.BRZ ordered. EDMS EDMS 16:26 16:09 TEST, SERUM+SC.LAB.BRZ ordered. EDMS EDMS
--- NOTE | 2024-06-09 18:18 | ER ---
Nurse's Notes [facility] Name: Theresa Martinez Age: 28 yrs Sex: Female : 1995 Arrival Date: 06/09/2024 Time: 15:06 Bed 23 Private MD: Diagnosis: Hemorrhagic left ovarian cyst;Lower abdominal pain, unspecified Presentation: 06/09 15:40 Chief complaint: Patient states: L lower quadrant pain and L low back pain that began ss 1-2 weeks ago. Coronavirus screen: Client denies travel out of the [place] in the last 14 days. Ebola Screen: Patient denies exposure to infectious person. Patient denies travel to an Ebola-affected area in the 21 days before illness onset. Initial Sepsis Screen: Does the patient meet any 2 criteria? No. Patient's initial sepsis screen is negative. Does the patient have a suspected source of infection? No. Patient's initial sepsis screen is negative. Risk Assessment: Do you want to hurt yourself or someone else? Patient reports no desire to harm self or others. Onset of symptoms was May 2024. 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 - Infectious Disease History:: Denies. - Social history:: Smoking status: Patient denies any tobacco usage or history of. Screenin:16 Abuse screen: Denies threats or abuse. Denies injuries from another. Nutritional ss screening: No deficits noted. Tuberculosis screening: Never had TB. Assessment: 16:16 General: Appears in no apparent distress. comfortable, Behavior is calm, cooperative. ss Pain: Complains of pain in L low back and LLQ Pain currently is 5 out of 10 on a pain scale. Is continuous. Neuro: Level of Consciousness is awake, alert, obeys commands. Respiratory: Airway is patent Respiratory effort is even, unlabored, Respiratory pattern is regular, symmetrical. GI: Abdomen is tender to palpation in right lower quadrant and left lower quadrant. GI: Abdomen is non-distended. : Denies burning with urination, urinary frequency. Derm: Skin is pink, warm \T\ dry. normal. 17:53 Reassessment: Patient appears in no apparent distress at this time. Patient and/or ss family updated on plan of care and expected duration. Pain level reassessed. Patient is alert, oriented x 3, equal unlabored respirations, skin warm/dry/pink. Vital Signs: 15:40 BP 120 / 82; Pulse 83; Resp 16; Temp 97.9(TE); Pulse Ox 100% on R/A; Weight 61.23 kg; ss Height 5 ft. 1 in. ; Pain 5/10; 15:40 Body Mass Index 25.51 (61.23 kg, 154.94 cm) ss 15:40 Pain Scale: Adult ss ED Course: 15:07 Patient arrived in ED. ec2 15:07 Milana Ho FNP-C is [facility]. kb 15:07 Chencho King MD is Attending Physician. kb 15:18 Tyler Nelson DO is Attending Physician. ms3 15:42 Triage completed. ss 15:42 Arm band placed on right wrist. ss 16:13 CBC with Diff Sent. ss 16:13 CMP Sent. ss 16:13 Lipase Sent. ss 16:16 Patient has correct armband on for positive identification. ss 16:35 Transvaginal Study Probe In Process Unspecified. EDMS 17:13 CT Abd/Pelvis - IV Contrast Only In Process Unspecified. EDMS 17:53 Velvet Snyder, RN is Primary Nurse. ss 18:17 Annmarie Hernandez MD is Referral Physician. ms3 18:40 No provider procedures requiring assistance completed. IV discontinued, intact, ss bleeding controlled, No redness/swelling at site. Pressure dressing applied. Administered Medications: 16:13 Drug: Famotidine IVP 20 mg IVP once; dilute with 10 mL 0.9% NaCl; give over 2 minutes ss Route: IVP; Site: left antecubital; 18:56 Follow up: Response: No adverse reaction ss 16:13 Not Given (Patient Refused): morphineor iv 4 mg IVP once over 4 mins ss Medication: 16:16 VIS not applicable for this client. ss Outcome: 18:18 Discharge ordered by . ms3 18:40 Discharged to home ambulatory, 18:40 Condition: good 18:40 Discharge instructions given to patient, Instructed on discharge instructions, follow up and referral plans. Demonstrated understanding of instructions, follow-up care, 18:55 Patient left the ED. Signatures: Dispatcher [employer] Milana Krause, PROOF COINS INSPECTOR-C PROOF COINS INSPECTOR-Velvet Rankin RN RN Tyler Nelson, DO ms3 Chencho King MD MD ec2
[2024-06-09 19:38] VITALS: BP 120/82; TEMP 97.9; O2SAT 100
== END 2024-06-09 18:55 | disposition home or self-care (01) ==
LOC: ER 15:06
DX: N83.202 Unspecified ovarian cyst, left side (principal); Z28.310 Unvaccinated for COVID-19
CPT/HCPCS: 85025; 36415; 81025; 83690; 80053; 74177; 76830; 96374; 99284; Q9967